=== PATIENT | female | born 1960 | race Caucasian/White ===

== ENCOUNTER → 2017-06-14 | Outpatient (CLI) | payer OTHER ==
[~2017-06-14] MED LIST: BACITAB PO; BUPR15TAXL PO; COLA100C5 PO; EFFE75CA75 PO; NICO14DI3 TD; OMEP40CA2 PO; PERC5TAB12 PO; ROBA500T PO; VANC1CAP7 PO; VENL75TA2 PO; epi pen; lidocaine TOP; percocet PO
--- NOTE | 2017-06-14 14:02 | REPMRS ---
Patient History The patient states she has not had a clinical breast exam in over a year. Patient is postmenopausal. No known family history of cancer. Digital Mammo Screening Bilat: June 14, 2017 - Exam #: [id number] Bilateral CC and MLO view(s) were taken. Technologist: Caren Ramires Technologist Prior study comparison: November 18, 2013, digital woman screen mammo, performed at [facility]. April 15, 2008, bilateral digital mammo screening bilat, performed at [facility]. FINDINGS: There are scattered fibroglandular densities. There has been no change in the appearance of the mammogram from the prior studies. There is a mild amount of scattered fibroglandular density which is fairly symmetric. There is no interval development of dominant mass, architectural distortion, or clustered microcalcification suggestive of malignancy. ASSESSMENT: BI-RADS/ACR category 1 mammogram. Negative. Recommendation Routine screening mammogram in 1 year (for women over age 40). This mammogram was interpreted with the aid of an FDA-approved computer-aided dectection system. Electronically Signed By: Tommie Schofield MD 06/14/17 [id number]
== END ==
LOC: M RAD 11:16
PROVIDERS: ATTEND Nurse Practitioner Adult Health
DX: Z12.31 Encounter for screening mammogram for malignant neoplasm of breast (principal)

== ENCOUNTER → 2017-07-02 | Outpatient (REF) | payer OTHER ==
[2017-07-02 13:17] LABS: BASO # 0.1 10^3/uL (0.0-0.2); BASO % 0.8 % (0.0-1.0); EOS # 0.2 10^3/uL (0.0-0.50); EOS % 2.7 % (0.0-3.0); IMMATURE GRANULOCYTE % 0.2 % (0-0); LYMPH # 4.3 10^3/uL (1.5-4.5); LYMPH % 51.9 % (24.0-44.0); MEAN CORPUSCULAR HEMOGLOBIN 32.1 pg (27.0-33.0); MEAN CORPUSCULAR HGB CONC 33.3 g/dl (32.0-36.5); MEAN CORPUSCULAR VOLUME 96.2 fl (80.0-96.0); MONO # 0.6 10^3/uL (0.0-0.8); MONO % 7.1 % (0.0-5.0); NEUTROPHILS # 3.1 10^3/uL (1.8-7.7); NEUTROPHILS % 37.3 % (36.0-66.0); PLATELET COUNT, AUTOMATED 408 10^3/uL (150-450); RED CELL DISTRIBUTION WIDTH 13.1 % (11.5-14.5); WHITE BLOOD COUNT 8.3 10^3/uL (4.0-10.0)
[2017-07-02 14:12] LABS: ALBUMIN 3.7 GM/DL (3.2-5.2); ALBUMIN/GLOBULIN RATIO 1.16 (1.00-1.93); ALKALINE PHOSPHATASE 81 U/L (45-117); ALT/SGPT 21 U/L (12-78); ANION GAP 9 MEQ/L (8-16); AST/SGOT 15 U/L (7-37); BILIRUBIN,TOTAL 0.3 MG/DL (0.2-1.0); BLOOD UREA NITROGEN 13 MG/DL (7-18); CALCIUM LEVEL 8.9 MG/DL (8.5-10.1); CARBON DIOXIDE LEVEL 26 MEQ/L (21-32); CHLORIDE LEVEL 108 MEQ/L (98-107); CHOLESTEROL LEVEL 216 MG/DL (<200); CREATININE FOR GFR 0.82 MG/DL (0.55-1.02); GLOMERULAR FILTRATION RATE > 60.0 (>51); GLUCOSE, FASTING 93 MG/DL (70-105); SODIUM LEVEL 143 MEQ/L (136-145); TOTAL PROTEIN 6.9 GM/DL (6.4-8.2); TRIGLYCERIDES LEVEL 63 MG/DL (<150)
== END ==
LOC: M LAB REF 12:55
PROVIDERS: ATTEND Nurse Practitioner Adult Health
DX: Z13.9 Encounter for screening, unspecified (principal)

== ENCOUNTER → 2018-04-10 | Outpatient (REF) | payer OTHER ==
[2018-04-10 15:28] LABS: ALBUMIN 4.1 GM/DL (3.2-5.2); ALBUMIN/GLOBULIN RATIO 1.41 (1.00-1.93); ALKALINE PHOSPHATASE 79 U/L (45-117); ALT/SGPT 29 U/L (12-78); ANION GAP 11 MEQ/L (8-16); AST/SGOT 21 U/L (7-37); BILIRUBIN,TOTAL 0.2 MG/DL (0.2-1.0); BLOOD UREA NITROGEN 11 MG/DL (7-18); CALCIUM LEVEL 8.7 MG/DL (8.5-10.1); CARBON DIOXIDE LEVEL 23 MEQ/L (21-32); CHLORIDE LEVEL 111 MEQ/L (98-107); CREATININE FOR GFR 0.84 MG/DL (0.55-1.30); GLOMERULAR FILTRATION RATE > 60.0 (>51); GLUCOSE, FASTING 89 MG/DL (70-100); SODIUM LEVEL 145 MEQ/L (136-145)
[2018-04-10 15:34] LABS: ESTIMATED AVERAGE GLUCOSE 114 MG/DL (60-110); HEMOGLOBIN A1c 5.6 %
[2018-04-10 15:37] LABS: TOTAL 25(OH) VITAMIN D 39.8 NG/ML (30.0-100.0)
== END ==
LOC: M LAB REF 13:37
DX: Z13.9 Encounter for screening, unspecified (principal)

== ENCOUNTER 2019-05-02 16:30 | Emergency (ER) | payer OTHER ==
[~2019-05-02] VITALS: Ht 160 cm; Wt 57.3 kg
[~2019-05-02 16:30] MED LIST changes: -BUPR15TAXL PO; +BUPR1TAB43 PO; +EFFE75CA2 PO; -EFFE75CA75 PO; -OMEP40CA2 PO; +OMEP40CA97 PO
[2019-05-02] MEDS ORDERED: PRAZ1CAP PO (16:39)
[2019-05-02] MEDS ORDERED: BUSP15TA47 PO (16:39)
[2019-05-02] MEDS ORDERED: ISOVUE-370 76% 100ML VIAL (Q9967) As Ordered ONE (16:42)
[2019-05-02 16:58] LABS: BASO # 0.1 10^3/uL (0.0-0.2); BASO % 0.7 % (0.0-1.0); EOS # 0.1 10^3/uL (0.0-0.5); EOS % 1.2 % (0.0-3.0); HEMATOCRIT 37.6 % (36.0-47.0); HEMOGLOBIN 12.7 g/dl (12.0-15.5); LYMPH # 4.3 10^3/uL (1.5-5.0); LYMPH % 39.9 % (24.0-44.0); MEAN CORPUSCULAR HEMOGLOBIN 33.2 pg (27.0-33.0); MEAN CORPUSCULAR HGB CONC 33.8 g/dl (32.0-36.5); MEAN CORPUSCULAR VOLUME 98.4 fl (80.0-96.0); MONO # 0.6 10^3/uL (0.0-0.8); MONO % 5.5 % (0.0-5.0); NEUTROPHILS # 5.6 10^3/uL (1.5-8.5); NEUTROPHILS % 52.4 % (36.0-66.0); PLATELET COUNT, AUTOMATED 335 10^3/uL (150-450); RED BLOOD COUNT 3.82 10^6/uL (4.00-5.40); WHITE BLOOD COUNT 10.7 10^3/uL (4.0-10.0)
[2019-05-02 17:25] VITALS: BP 145/72
[2019-05-02 17:30] LABS: BLOOD UREA NITROGEN 15 MG/DL (7-18); CALCIUM LEVEL 9.2 MG/DL (8.5-10.1); CARBON DIOXIDE LEVEL 29 MEQ/L (21-32); CHLORIDE LEVEL 107 MEQ/L (98-107); CK-MB VALUE MASS 1.7 NG/ML (<3.6); CPK CREATINE PHOSPHOKINASE 197 U/L (26-192); CREATININE FOR GFR 0.98 MG/DL (0.55-1.30); GLOMERULAR FILTRATION RATE > 60.0 (>51); GLUCOSE, FASTING 114 MG/DL (70-100); MB/CK RELATIVE INDEX 0.86 (< OR =4); POTASSIUM SERUM 3.9 MEQ/L (3.5-5.1); SODIUM LEVEL 143 MEQ/L (136-145); TROPONIN I < 0.02 NG/ML (< 0.10)
[2019-05-02 17:37] LABS: INR 1.01
[2019-05-02 17:38] LABS: PARTIAL THROMBOPLASTIN TIME 28.8 SECONDS (25.0-38.4)
--- NOTE | 2019-05-02 19:35 | ECGEPIP ---
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
[2019-05-03] MEDS ORDERED: METAL LOCK LOOP XX ONE ×2 (01:53→01:56)
--- NOTE | 2019-05-03 08:05 | REP ---
CT BRAIN WITHOUT CONTRAST: 05/02/2019. Clinical history: Stroke protocol. Findings: No prior study. Soft-tissue and bone windows are reviewed for each slice level. Lateral ventricles are midline symmetric and without dilatation or displacement. Third and fourth ventricles unremarkable vasoganglia symmetric. Winston-white junction differentiation well maintained. Hyperdense material in an M3 branch in the left sylvian fissure. However, there is also a punctate hyperintense focus within the cortex in the right temporal lobe, highly suspicious for a cortical bleed or contusion. I do not see extra-axial hemorrhage in the some arachnoid or subdural space. The falx and tentorium were unremarkable. Cortical stripe shows symmetric appearance otherwise. Brainstem is intact. Cerebellum intact. Basal cisterns are unremarkable. Mastoids and visualized sinuses clear. Skull base and calvarium normal. Impression: 1. About 5.5 mm cortical focus of hyperdensity in the anterior left temporal lobe at the Sylvian fissure, one of the M3 segment branches and it shows hyperdense material likely thrombus but I am highly suspicious for parenchymal bleed adjacent within the temporal lobe. A phone call to the ED physician occurred during this dictation. 2. No subarachnoid subdural or epidural hematoma. 3. No mass or mass effect. No ventriculomegaly. 4. Skull base and calvarium without fracture or focal lesion. Sinuses and mastoids intact. Electronically Signed by Cruz Ralph MD 05/03/2019 10:38 A
--- NOTE | 2019-05-03 08:10 | REP ---
CT ANGIOGRAM NECK: 05/02/2019. Clinical history: Suspected CVA. Technique: Bolus 100 ml Isovue 370, scanning from the aortic arch to the skull base. MIP and standard coronal, sagittal reformats and curved reformats of each internal carotid. 3-D surface rendering rotated about the longitudinal axis of the neck was also evaluated. Findings: Lung apices clear. Bone windows in the upper chest were unremarkable. There is cervical spondylosis C4-5 through C6-7. Posterior osteophytes and disc space narrowing at all those levels. Posterior elements intact. Atherosclerotic calcifications at the aortic arch are noted. Takeoff of the innominate artery and left common carotid artery partly obscured by shadowing from very dense IV contrast in the right subclavian vein which limits the reconstructions. However the vessels are in fact patent. The right common carotid artery is without stenosis or aneurysm. The bifurcation is also unremarkable and the right internal carotid to the skull base was without stenosis or aneurysm. Internal carotid from the bulb to the skull base intact. Horizontal course at the skull base, partially obscured but visible on the CTA brain. The left common carotid through the neck also is without stenosis or aneurysm from the bulb to the skull base. The left common carotid also shows no stenosis or aneurysm. Its horizontal course intact. Vertebral arteries show symmetric size and contribution of the basilar artery. Impression: 1. There is no aneurysm, thrombus or vessel cutoff of the internal carotids or vertebral arteries. Electronically Signed by Cruz Ralph MD 05/03/2019 10:38 A
--- NOTE | 2019-05-03 08:11 | REP ---
AP PORTABLE CHEST: 05/02/2019. Comparison: 10/11/2007. Clinical history: CVA. Findings: Lungs are well inflated without infiltrate, effusion, atelectasis or mass. Heart, mediastinal and hilar contours are normal. Aorta and airway are intact. There is no widening of the mediastinum. No vascular redistribution. Bones show minor degenerative changes spine and shoulders. Impression: 1. No acute cardiopulmonary change. Electronically Signed by Cruz Ralph MD 05/03/2019 10:38 A
--- NOTE | 2019-05-03 08:15 | REP ---
CT ANGIOGRAM OF THE BRAIN: 05/02/2019. Comparison: CT brain without contrast 05/02/2019. Technique: Bolus of 100 ml Isovue 370 and scanning through the brain with MIP sagittal and coronal reconstructions along with an axial MIP reformat and standard reformats in sagittal and coronal projections. Findings: The left sylvian fissure. There is vessel cutoff of the M2 and M3 segments compared to the right side. This corresponds to the high hyperdense material noted in the sylvian fissure on the precontrast CT and the hyperdense material in the anterior tip of the left temporal lobe. This represents acute thrombotic episode. I do not see other vessel cutoff. The vertebral arteries show symmetric contribution of the basilar arteries. Posterior cerebral arteries were symmetric. The right middle cerebral artery and branches were intact. The bilateral anterior cerebral arteries and branches are intact. The A1 and M1 segments were unremarkable. No other findings. Impression: 1. Vessel cutoff with poor vascularity to the left temporal lobe from M2 and M3 branches in the left middle cerebral artery territory. This corresponds to findings o the precontrast study. I do not see any extravasation of contrast. The remainder of the intracranial arterial vascularity was normal. Electronically Signed by Cruz Ralph MD 05/03/2019 10:38 A
== END 2019-05-02 17:41 | disposition short-term general hospital (02) ==
LOC: M ED 16:30
DX: I61.9 Nontraumatic intracerebral hemorrhage, unspecified (principal); K21.9 Gastro-esophageal reflux disease without esophagitis; F33.9 Major depressive disorder, recurrent, unspecified; Z79.899 Other long term (current) drug therapy; Z88.0 Allergy status to penicillin; F17.210 Nicotine dependence, cigarettes, uncomplicated
CPT/HCPCS: 36415; 70450; 70496; 70498; 71045; 80047; 80048; 82550; 82553; 85025; 85610; 85730; 86850; 86900; 86901; 93005; 93041; 94760; 99285; Q9967

== ENCOUNTER 2019-06-12 09:46 | Outpatient (RCR) | payer OTHER ==
[~2019-06-12 09:46] MED LIST changes: +BUSP15TA47 PO; +PRAZ1CAP PO
== END 2019-07-04 ==
LOC: M ST 09:46
PROVIDERS: ATTEND Nurse Practitioner Adult Health
DX: Z51.89 Encounter for other specified aftercare (principal); I63.89 Other cerebral infarction

== ENCOUNTER → 2019-06-20 | Outpatient (CLI) | payer OTHER ==
--- NOTE | 2019-06-22 10:51 | REP ---
Intracranial MRA: 06/20/2019. Indication: Aneurysm. Comparison: 05/02/2019. Technique: 3-D [id number] imaging of the intracranial vessels were performed without IV Gadolinium. Findings: There are multiple intracranial aneurysms. There is a bilobed 7 mm left MCA bifurcation aneurysm with a sylvian branch originating from the side of the aneurysm. There is also a 4 - 5 mm left PCoA region aneurysm which projects posteriorly. There is a 5 - 6 mm right supraclinoid/PCoA ICA aneurysm which projects laterally. There is a 3 mm left paraclinoid/hypophyseal aneurysm which projects inferiorly. There are no areas of intracranial high-grade stenosis, vessel occlusion or AVM. Impression: 7 mm left MCA bifurcation aneurysm. 4 - 5 mm left PCoA n aneurysm. 5 - 6 mm right supraclinoid/PCoA aneurysm. 3 mm left paraclinoid/hypophyseal aneurysm. Electronically Signed by Rico Kwong DO 06/22/2019 10:43 A
== END ==
LOC: M RAD 11:56
PROVIDERS: ATTEND Neurological Surgery
DX: I67.1 Cerebral aneurysm, nonruptured (principal)

== ENCOUNTER → 2019-10-28 | Outpatient (CLI) | payer OTHER ==
[2019-10-28 08:10] LABS: CALCIUM LEVEL 8.6 MG/DL (8.5-10.1); CREATININE FOR GFR 1.05 MG/DL (0.55-1.30); GLOMERULAR FILTRATION RATE 57.1 (>51); POTASSIUM SERUM 3.6 MEQ/L (3.5-5.1)
--- NOTE | 2019-10-29 17:53 | ECGEPIP ---
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
== END ==
LOC: M LAB 07:23
PROVIDERS: ATTEND Neurological Surgery
DX: I72.9 Aneurysm of unspecified site (principal)

== ENCOUNTER → 2020-01-18 | Outpatient (CLI) | payer OTHER ==
--- NOTE | 2020-01-19 06:42 | ECGEPIP ---
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
== END ==
LOC: M EKG 11:59
PROVIDERS: ATTEND Neurological Surgery
DX: I72.9 Aneurysm of unspecified site (principal)

== ENCOUNTER → 2020-01-18 | Outpatient (CLI) | payer OTHER ==
[2020-01-18 13:15] LABS: APPEARANCE, URINE HAZY (CLEAR); BACTERIA, URINE AUTO NEGATIVE (NEGATIVE); BILIRUBIN, URINE AUTO NEGATIVE (NEGATIVE); BLOOD, URINE BLOOD NEGATIVE (NEGATIVE); COLOR, URINE YELLOW (YELLOW); GLUCOSE, URINE (UA) AUTO NEGATIVE (NEGATIVE); KETONE, URINE AUTO TRACE mg/dL (NEGATIVE); LEUKOCYTE ESTERASE, URINE AUTO 1+ (NEGATIVE); NITRITE, URINE AUTO NEGATIVE (NEGATIVE); PROTEIN, URINE AUTO NEGATIVE (NEGATIVE); RBC, URINE AUTO 4 /HPF (0-3); SPECIFIC GRAVITY URINE AUTO 1.019 (1.002-1.035); SQUAMOUS EPITHELIAL CELL UR AU 8 /HPF (0-6); UROBILINOGEN, URINE AUTO 0.2 mg/dL (0.0-2.0); WBC, URINE AUTO 4 /HPF (0-3)
[2020-01-18 13:18] LABS: BASO # 0.1 10^3/uL (0.0-0.2); BASO % 0.7 % (0.0-1.0); EOS # 0.2 10^3/uL (0.0-0.5); EOS % 2.2 % (0.0-3.0); HEMATOCRIT 38.9 % (36.0-47.0); HEMOGLOBIN 12.7 g/dl (12.0-15.5); LYMPH # 4.7 10^3/uL (1.5-5.0); LYMPH % 52.7 % (24.0-44.0); MEAN CORPUSCULAR HEMOGLOBIN 31.8 pg (27.0-33.0); MEAN CORPUSCULAR HGB CONC 32.6 g/dl (32.0-36.5); MEAN CORPUSCULAR VOLUME 97.3 fl (80.0-96.0); MONO # 0.6 10^3/uL (0.0-0.8); MONO % 6.3 % (0.0-5.0); NEUTROPHILS # 3.4 10^3/uL (1.5-8.5); NEUTROPHILS % 37.9 % (36.0-66.0); PLATELET COUNT, AUTOMATED 401 10^3/uL (150-450); WHITE BLOOD COUNT 8.9 10^3/uL (4.0-10.0)
[2020-01-18 13:28] LABS: INR 0.99; PARTIAL THROMBOPLASTIN TIME 34.3 SECONDS (25.0-38.4); PROTHROMBIN TIME 12.8 SECONDS (11.8-14.0)
[2020-01-18 14:06] LABS: BLOOD UREA NITROGEN 8 MG/DL (7-18); CALCIUM LEVEL 8.9 MG/DL (8.5-10.1); CARBON DIOXIDE LEVEL 27 MEQ/L (21-32); CHLORIDE LEVEL 111 MEQ/L (98-107); CREATININE FOR GFR 0.73 MG/DL (0.55-1.30); GLOMERULAR FILTRATION RATE > 60.0 (>51); GLUCOSE, FASTING 75 MG/DL (70-100); POTASSIUM SERUM 4.6 MEQ/L (3.5-5.1); SODIUM LEVEL 142 MEQ/L (136-145)
== END ==
LOC: M LAB 11:54
PROVIDERS: ATTEND Physician Assistant Medical
DX: I67.1 Cerebral aneurysm, nonruptured (principal)

== ENCOUNTER 2020-03-18 16:42 | Emergency (ER) | payer OTHER | END 2020-03-18 19:37 | disposition home or self-care (01) | LOC: M ED 16:42 | DX: S30.1XXA Contusion of abdominal wall, initial encounter (principal); X58.XXXA Exposure to other specified factors, initial encounter; Y92.89 Other specified places as the place of occurrence of the external cause; Z98.890 Other specified postprocedural states; Z86.79 Personal history of other diseases of the circulatory system; I51.9 Heart disease, unspecified; K21.9 Gastro-esophageal reflux disease without esophagitis; Z86.73 Personal history of transient ischemic attack (TIA), and cerebral infarction without residual deficits; Z88.5 Allergy status to narcotic agent; Z91.030 Bee allergy status; Z79.899 Other long term (current) drug therapy; Z79.82 Long term (current) use of aspirin ==

== ENCOUNTER 2020-09-23 17:15 | Emergency (ER) | payer OTHER ==
[~2020-09-23] VITALS: Ht 154.9 cm; Wt 61.4 kg
--- OUTSIDE RECORDS SUMMARY | 2020-09-23 17:21 | CCD ---
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 Role Phone Brittany Dorsey PCP Allergies, Adverse Reactions, Alerts Concept Allergy Name Reaction Severity Onset Date Status Documentation Date Phone Number Npid Taxonomy Code Taxonomy Desc Author Last Name Author Fi rst Name Concept Type 476 Penicillins Group anaphylaxis Active 09/09/2014 3157 [id number] [facility] Problem List Concept Problem Description Status Start Date Created Date Resolv ed Date Snomed Code F33.0 Major Depressive Disorder, Recurrent episode, Mild Act fatimah 08/29/2015 08/29/2015 F40.10 Social Anxiety Disorder (Social Phobia) Active 08/29/2015 08/29/2015 R69. Illness, unspecified Active 08/29/2015 08/29/2015 Medications Rx Norm Medication Route Route Concept Start Date Stop Date Dosage Tavares quency Duration Formula Strength Dosage Form Dosage Form Code Dosage Description Medication Id Account Npid Author First Name Author Last Name Taxonomy Code Taxonomy Desc Phone Number [id number] prazosin by mouth [id number] 01/07/2019 at bedtime 1 mg capsul e 54305 591945 [id number] Brittanyyuval Dorsey [id number] [facility] [id number] 522574 buspirone 01/07/2019 twice a day 15 mg tablet 80055 766886 [id number] Brittany Dorsey [id number] [facility] [phone] Effexor XR by mouth [id number] 05/27/2019 once a day 75 mg capsule,extended release 24hr 21068 832637 [id number] Brittany Dorsey [id number] [facility] [phone] 993810 bupropion HCl 05/27/2019 every morning 150 mg tablet extended release 24 hr 51239 355524 [id number] Brittany Dorsey [id number] [facility] [phone] 818352 nicotine (polacrilex) in mouth 05/19/2020 08/17/2020 fou r times a day 30 2 mg gum 58939 882412 [id number] Brittany Dorsey [id number] [facility] [id number] Social History Social History Element Description Concept Effective Date Smoking Status Unknown if ever smoked [id number] Immunizations No Data in Section Vital Signs No Data in Section Procedures Date Concept Id Description Targeted Site Concept Targeted Site Concept Type 07/27/2020 73916 E/M Level 3 - Established Patient CPT Patient has no history of implantable de vices Encounters Encounter Start Date End Date Encounter Type Description Diagnosis Di agnosis Desc Location Author First Name Author Last Name Npid Taxonomy Cod e Taxonomy Desc Phone Number Location Addr1 Location Addr2 Location [facility] Location [facility] Location [facility] [id number] 07/27/2020 07/27/2020 32178 E/M Level 3 - Established [place] conchant F33.0 Major depressive disorder, recurrent, mild [facility] [id number] Psychiatric/Mental Health [phone] [address] [address] Plan of Treatment No Data in Section Lab Results No Data in Section Instructions No Data in Section Insurance Providers Insurance Id Policy Effective Date Policy Thru Date Company N ash [id number] 2016 [id number]
--- OUTSIDE RECORDS SUMMARY | 2020-09-23 17:21 | CCD ---
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 Role Phone Brittany Dorsey PCP Allergies, Adverse Reactions, Alerts Concept Allergy Name Reaction Severity Onset Date Status Documentation Date Phone Number Npid Taxonomy Code Taxonomy Desc Author Last Name Author Fi rst Name Concept Type 476 Penicillins Group anaphylaxis Active 09/09/2014 3157 [id number] [id number] [facility] Problem List Concept Problem Description Status Start [...] Name Taxonomy Code Taxonomy Desc Phone Number [id number] prazosin by mouth [id number] 01/07/2019 at bedtime 1 mg capsul e 16910 475267 [id number] Brittany Sunita [id number] [facility] [phone] 347209 buspirone 01/07/2019 twice a day 15 mg tablet 70119 743125 [id number] Brittany Dorsey [id number] [facility] [phone] 202989 Effexor XR by mouth M76092 05/27/2019 once a day 75 mg capsule,extended release 24hr 32461 326111 [id number] Brittany Dorsey [id number] [facility] [phone] 586562 bupropion HCl 05/27/2019 every morning 150 mg tablet extended release 24 hr 93386 576467 [id number] Brittany Dorsey [id number] [facility]ental [facility] [phone] Social History Social History Element Description Concept Effective Date Smoking Status Unknown if ever smoked [id number] Immunizations No Data in Section Vital Signs Encounter Date Height Ins Weight Lbs Bmi Bp Systolic Bp Diastoli c Oxygen Saturation Respiration Rate Pulse Rate Body Temp Head Circumference Heigh t Lying 08/24/2020 0.00 0.00 0.00 0 0 0.00 0 0 0.00 0.0 0.0 0 Procedures Date Concept Id Description Targeted Site Concept Targeted Site Concept Type 08/24/2020 25518-44 [facility] Tele[facility] E/M Lvl 3--Est pt CPT Patient has no history of implantable de vices Encounters Encounter Start Date End Date Encounter Type Description Diagnosis Di agnosis Desc Location Author First Name Author Last Name Npid Taxonomy Cod e Taxonomy Desc Phone Number Location Addr1 Location Addr2 Location [facility] [id number] 08/24/2020 08/24/2020 26711-02 [facility] Telemed E/M Lvl 3--Est p t F33.0 Major depressive disorder, recurrent, mild [facility] [phone] [id number] Psychiatric/Mental Health [phone] [address] [address] Plan of Treatment No Data in Section Lab Results No Data in Section Instructions No Data in Section Functional Cognitive Status No Data in Section Insurance Providers Insurance Id Policy Effective Date Policy Thru Date Kidaro Earnest aleman [id number] 2016 [id number]
--- OUTSIDE RECORDS SUMMARY | 2020-09-23 17:22 | CCD ---
Author Author [facility] Organization [facility] Address Unknown Phone Unavailable Care Team Providers Care Vice President Of Advertising Name Role Phone Marianna HERNANDEZ Unavailable Unavailable Ynes HIDALGO MD Unavailable Unavailable Ynes HIDALGO MD Unavailable Unavailable Ynes HIDALGO MD Unavailable Unavailable Ynes HIDALGO MD Unavailable Unavailable Ynes HIDALGO MD Unavailable Unavailable Ynes HIDALGO MD Unavailable Unavailable Ynes HIDALGO MD Unavailable Unavailable Ynes HIDALGO MD Unavailable Unavailable Ynes HIDALGO MD Unavailable Unavailable Ynes GARCIA MD Unavailable Unavailable Ynes GARCIA MD Unavailable Unavailable Ynes GARCIA MD Unavailable Unavailable Ynes GARCIA MD Unavailable Unavailable Ynes GARCIA MD Unavailable Unavailable Ynes GARCIA MD Unavailable Unavailable Ynes GARCIA MD Unavailable Unavailable Ynes GARCIA MD Unavailable Unavailable Ynes GARCIA MD Unavailable Unavailable Ynes GARCIA MD Unavailable Unavailable Ynes GARCIA MD Unavailable Unavailable Ynes GARCIA MD Unavailable Unavailable Ynes GARCIA MD Unavailable Unavailable Ynes GARCIA MD Unavailable Unavailable Ynes GARCIA MD Unavailable Unavailable Ynes GARCIA MD Unavailable Unavailable Ynes GARCIA MD Unavailable Unavailable Ynse GARCIA MD Unavailable Unavailable Ynes GARCIA MD Unavailable Unavailable Ynes GARCIA MD Unavailable Unavailable Ynes GARCIA MD Unavailable Unavailable Ynes GARCIA MD Unavailable Unavailable Ynes GARCIA MD Unavailable Unavailable Ynes GARCIA MD Unavailable Unavailable Ynes GARCIA MD Unavailable Unavailable Ynes GARCIA MD Unavailable Unavailable Ynes GARCIA MD Unavailable Unavailable JOSE, S JOSE KEMP Unavailable Unavailable JOSE, S JOSE KEMP Unavailable Unavailable JOSE, S JOSE KEMP Unavailable Unavailable JOSE, S JOSE KEMP Unavailable Unavailable JOSE, S JOSE KMEP Unavailable Unavailable OJSE, S JOSE KEMP Unavailable Unavailable JOSE, S JOSE KEMP Unavailable Unavailable JOSE, S JOSE KEMP Unavailable Unavailable JOSE, S JOSE KEMP Unavailable Unavailable JOSE, S JOSE KEMP Unavailable Unavailable JOSE, S JOSE KEMP Unavailable Unavailable CHIN, S JOSE KEMP Unavailable Unavailable CHIN, S JOSE KEMP Unavailable Unavailable CHIN, S JOSE KEMP Unavailable Unavailable CHIN, S JOSE KEMP Unavailable Unavailable CHIN, S JOSE KEMP Unavailable Unavailable CHIN, S JOSE KEMP Unavailable Unavailable CHIN, S JOSE KEMP Unavailable Unavailable CHIN, S JOSE KEMP Unavailable Unavailable CHIN, S JOSE KEMP Unavailable Unavailable CHIN, S JOSE KEMP Unavailable Unavailable JOSE, S JOSE KEMP Unavailable Unavailable JOSE, S JOSE KEMP Unavailable Unavailable JOSE, S JOSE KEMP Unavailable Unavailable JOSE, S JOSE KEMP Unavailable Unavailable JOSE, S JOSE KEMP Unavailable Unavailable JOSE, S JOSE KEMP Unavailable Unavailable JOSE, S JOSE KEMP Unavailable Unavailable JOSE, S JOSE KEMP Unavailable Unavailable JOSE, S JOSE KEMP Unavailable Unavailable JOSE, S JOSE KEMP Unavailable Unavailable JOSE, S JOSE KEMP Unavailable Unavailable JOSE, S JOSE KEMP Unavailable Unavailable JOSE, S JOSE KEMP Unavailable Unavailable JOSE, S JOSE KEMP Unavailable Unavailable JOSE, S JOSE KEMP Unavailable Unavailable JOSE, S JOSE KEMP Unavailable Unavailable JOSE, S JOSE KEMP Unavailable Unavailable JOSE, S JOSE KEMP Unavailable Unavailable JOSE S JOSE KEMP Unavailable Unavailable JOSE S JOSE KEMP Unavailable Unavailable JOSE S JOSE KEMP Unavailable Unavailable JOSE S JOSE KEMP Unavailable Unavailable JOSE, S JOSE KEMP Unavailable Unavailable JOSE, S JOSE KEMP Unavailable Unavailable JOSE S JOSE KEMP Unavailable Unavailable JOSE, S JOSE KEMP Unavailable Unavailable JOSE S JOSE KEMP Unavailable Unavailable JOSE S JOSE KEMP Unavailable Unavailable JOSE S JOSE KEMP Unavailable Unavailable JOSE S JOSE KEMP Unavailable Unavailable JOSE S JOSE KEMP Unavailable Unavailable JOSE S JOSE KEMP Unavailable Unavailable JOSE S JOSE KEMP Unavailable Unavailable JOSE S JOSE KEMP Unavailable Unavailable JOSE S JOSE KEMP Unavailable Unavailable Zohra Henry Unavailable [facility], KGATES Unavailable Unavailable Albino MURRAY Unavailable Unavailable Ray RODRIGUEZ Unavailable Unavailable Ray RODRIGUEZ PA Unavailable Unavailable Ray RODRIGUEZ Unavailable Unavailable Stoney ROWE . Unavailable Unavailable ALIASES , DEFAULT / GENERIC / UNKNOWN PROVIDER * Unavailable Unavailable ALIASES , DEFAULT / GENERIC / UNKNOWN PROVIDER * Unavailable Unavailable ALIASES , DEFAULT / GENERIC / UNKNOWN PROVIDER * Unavailable Unavailable ALIASES , DEFAULT / GENERIC / UNKNOWN PROVIDER * Unavailable Unavailable ALIASES , DEFAULT / GENERIC / UNKNOWN PROVIDER * Unavailable Unavailable ALIASES , DEFAULT / GENERIC / UNKNOWN PROVIDER * Unavailable Unavailable ALIASES , DEFAULT / GENERIC / UNKNOWN PROVIDER * Unavailable Unavailable ALIASES , DEFAULT / GENERIC / UNKNOWN PROVIDER * Unavailable Unavailable ALIASES , DEFAULT / GENERIC / UNKNOWN PROVIDER * Unavailable Unavailable ALIASES , DEFAULT / GENERIC / UNKNOWN PROVIDER * Unavailable Unavailable ALIASES , DEFAULT / GENERIC / UNKNOWN PROVIDER * Unavailable Unavailable ALIASES , DEFAULT / GENERIC / UNKNOWN PROVIDER * Unavailable Unavailable ALIASES , DEFAULT / GENERIC / UNKNOWN PROVIDER * Unavailable Unavailable ALIASES , DEFAULT / GENERIC / UNKNOWN PROVIDER * Unavailable Unavailable ALIASES , DEFAULT / GENERIC / UNKNOWN PROVIDER * Unavailable Unavailable ALIASES , DEFAULT / GENERIC / UNKNOWN PROVIDER * Unavailable Unavailable ALIASES , DEFAULT / GENERIC / UNKNOWN PROVIDER * Unavailable Unavailable ALIASES , DEFAULT / GENERIC / UNKNOWN PROVIDER * Unavailable Unavailable ALIASES , DEFAULT / GENERIC / UNKNOWN PROVIDER * Unavailable Unavailable ALIASES , DEFAULT / GENERIC / UNKNOWN PROVIDER * Unavailable Unavailable ALIASES , DEFAULT / GENERIC / UNKNOWN PROVIDER * Unavailable Unavailable ALIASES , DEFAULT / GENERIC / UNKNOWN PROVIDER * Unavailable Unavailable ALIASES , DEFAULT / GENERIC / UNKNOWN PROVIDER * Unavailable Unavailable ALIASES , DEFAULT / GENERIC / UNKNOWN PROVIDER * Unavailable Unavailable ALIASES , DEFAULT / GENERIC / UNKNOWN PROVIDER * Unavailable Unavailable ALIASES , DEFAULT / GENERIC / UNKNOWN PROVIDER * Unavailable Unavailable ALIASES , DEFAULT / GENERIC / UNKNOWN PROVIDER * Unavailable Unavailable ALIASES , DEFAULT / GENERIC / UNKNOWN PROVIDER * Unavailable Unavailable ALIASES , DEFAULT / GENERIC / UNKNOWN PROVIDER * Unavailable Unavailable ALIASES , DEFAULT / GENERIC / UNKNOWN PROVIDER * Unavailable Unavailable ALIASES , DEFAULT / GENERIC / UNKNOWN PROVIDER * Unavailable Unavailable ALIASES , DEFAULT / GENERIC / UNKNOWN PROVIDER * Unavailable Unavailable ALIASES , DEFAULT / GENERIC / UNKNOWN PROVIDER * Unavailable Unavailable ALIASES , DEFAULT / GENERIC / UNKNOWN PROVIDER * Unavailable Unavailable ALIASES , DEFAULT / GENERIC / UNKNOWN PROVIDER * Unavailable Unavailable ALIASES , DEFAULT / GENERIC / UNKNOWN PROVIDER * Unavailable Unavailable ALIASES , DEFAULT / GENERIC / UNKNOWN PROVIDER * Unavailable Unavailable ALIASES , DEFAULT / GENERIC / UNKNOWN PROVIDER * Unavailable Unavailable ALIASES , DEFAULT / GENERIC / UNKNOWN PROVIDER * Unavailable Unavailable ALIASES , DEFAULT / GENERIC / UNKNOWN PROVIDER * Unavailable Unavailable ALIASES , DEFAULT / GENERIC / UNKNOWN PROVIDER * Unavailable Unavailable ALIASES , DEFAULT / GENERIC / UNKNOWN PROVIDER * Unavailable Unavailable ALIASES , DEFAULT / GENERIC / UNKNOWN PROVIDER * Unavailable Unavailable ALIASES , DEFAULT / GENERIC / UNKNOWN PROVIDER * Unavailable Unavailable ALIASES , DEFAULT / GENERIC / UNKNOWN PROVIDER * Unavailable Unavailable ALIASES , DEFAULT / GENERIC / UNKNOWN PROVIDER * Unavailable Unavailable ALIASES , DEFAULT / GENERIC / UNKNOWN PROVIDER * Unavailable Unavailable ALIASES , DEFAULT / GENERIC / UNKNOWN PROVIDER * Unavailable Unavailable ALIASES , DEFAULT / GENERIC / UNKNOWN PROVIDER * Unavailable Unavailable ALIASES , DEFAULT / GENERIC / UNKNOWN PROVIDER * Unavailable Unavailable ALIASES , DEFAULT / GENERIC / UNKNOWN PROVIDER * Unavailable Unavailable ALIASES , DEFAULT / GENERIC / UNKNOWN PROVIDER * Unavailable Unavailable ALIASES , DEFAULT / GENERIC / UNKNOWN PROVIDER * Unavailable Unavailable Calista Cortes MD Unavailable Unavailable Calista Cortes MD Unavailable Unavailable Calista Cortes MD Unavailable Unavailable Calista Cortes MD Unavailable Unavailable Calista Cortes MD Unavailable Unavailable Calista Cortes MD Unavailable Unavailable Calista Cortes MD Unavailable Unavailable Calista Cortes MD Unavailable Unavailable Calista Cortes MD Unavailable Unavailable Calista Cortes MD Unavailable Unavailable Calista Cortes MD Unavailable Unavailable Ynes CABA Unavailable Unavailable Nelson GIBSON MD Unavailable Unavailable Nelson GIBSON MD Unavailable Unavailable Nelson GIBSON MD Unavailable Unavailable Nelson GIBSON MD Unavailable Unavailable Nelson GIBSON MD Unavailable Unavailable Nelson GIBSON MD Unavailable Unavailable Nelson GIBSON MD Unavailable Unavailable Nelson GIBSON MD Unavailable Unavailable Nelson GIBSON MD Unavailable Unavailable Nelson GIBSON MD Unavailable Unavailable GIBSON, C DIETER KEMP Unavailable Unavailable GIBSON, C DIETER KEMP Unavailable Unavailable GIBSON, C DIETER KEMP Unavailable Unavailable GIBSON, C DIETER KEMP Unavailable Unavailable GIBSON, C DIETER KEMP Unavailable Unavailable GIBSON, C DIETER KEMP Unavailable Unavailable GIBSON, C DIETER KEMP Unavailable Unavailable GIBSON, C DIETER KEMP Unavailable Unavailable GIBSON, C DIETER KEMP Unavailable Unavailable GIBSON C DIETER KEMP Unavailable Unavailable GIBSON C GRAHRODERICK KEMP Unavailable Unavailable GIBSON C DIETER KEMP Unavailable Unavailable GIBSON, C DIETER KEMP Unavailable Unavailable GIBSON C GRAHAME MD Unavailable Unavailable GIBSON, C GRAHAME MD Unavailable Unavailable GIBSON, C GRAHAME MD Unavailable Unavailable GIBSON, C GRAHAME MD Unavailable Unavailable GIBSON, C GRAHAME MD Unavailable Unavailable GIBSON, C GRAHAME MD Unavailable Unavailable GIBSON, C GRAHAME MD Unavailable Unavailable GIBSON, C GRAHAME MD Unavailable Unavailable GIBSON, C GRAHAME MD Unavailable Unavailable GIBSON, C GRAHAME MD Unavailable Unavailable GIBSON, C GRAHAME MD Unavailable Unavailable GIBSON, C GRAHAME MD Unavailable Unavailable GIBSON, C GRAHAME MD Unavailable Unavailable GIBSON, C GRAHAME MD Unavailable Unavailable GIBSON, C GRAHAME MD Unavailable Unavailable GIBSON, C GRAHAME MD Unavailable Unavailable GIBSON, C GRAHAME MD Unavailable Unavailable GIBSON, C GRAHAME MD Unavailable Unavailable GIBSON, C GRAHAME MD Unavailable Unavailable GIBSON, C GRAHAME MD Unavailable Unavailable GIBSON, C GRAHAME MD Unavailable Unavailable GIBSON, C GRAHAME MD Unavailable Unavailable GIBSON, C GRAHAME MD Unavailable Unavailable GIBSON, C GRAHAME MD Unavailable Unavailable GIBSON, C GRAHAME MD Unavailable Unavailable GIBSON, C GRAHAME MD Unavailable Unavailable GIBSON, C GRAHAME MD Unavailable Unavailable GIBSON, C GRAHAME MD Unavailable Unavailable GIBSON, C GRAHAME MD Unavailable Unavailable GIBSON, C GRAHAME MD Unavailable Unavailable GIBSON, C GRAHAME MD Unavailable Unavailable GIBSON, C GRAHAME MD Unavailable Unavailable GIBSON, C GRAHAME MD Unavailable Unavailable GIBSON, C GRAHAME MD Unavailable Unavailable GIBSON, C GRAHAME MD Unavailable Unavailable GIBSON, C GRAHAME MD Unavailable Unavailable MACQUEEN, BRITTANY SANITARY PLUMBER Unavailable Unavailable MACQUEEN, BRITTANY SANITARY PLUMBER Unavailable Unavailable MACQUEEN, BRITTANY SANITARY PLUMBER Unavailable Unavailable MACQUEEN, BRITTANY SANITARY PLUMBER Unavailable Unavailable MACQUEEN, BRITTANY SANITARY PLUMBER Unavailable Unavailable MACQUEEN, BRITTANY SANITARY PLUMBER Unavailable Unavailable MACQUEEN, BRITTANY SANITARY PLUMBER Unavailable Unavailable MACQUEEN, BRITTANY SANITARY PLUMBER Unavailable Unavailable MACQUEEN, BRITTANY SANITARY PLUMBER Unavailable Unavailable MACQUEEN, BRITTANY SANITARY PLUMBER Unavailable Unavailable MACQUEEN, BRITTANY SANITARY PLUMBER Unavailable Unavailable PALMA EMMANUEL Unavailable Unavailable FAIZAN, F ESPERANZA Unavailable Unavailable Re-disclosure Warning The records that you are about to access may contain information from federally-assisted alcohol or drug abuse programs. If such information is present, then the following federally mandated warning applies: This information has been disclosed to you from records protected by federal confidentiality rules (42 CFR part 2). The federal rules prohibit you from making any further disclosure of this information unless further disclosure is expressly permitted by the written consent of the person to whom it pertains or as otherwise permitted by 42 CFR part 2. A general authorization for the release of medical or other information is NOT sufficient for this purpose. The Federal rules restrict any use of the information to criminally investigate or prosecute any alcohol or drug abuse patient.The records that you are about to access may contain highly sensitive health information, the redisclosure of which is protected by Article 27-F of the [facility] Public Health law. If you continue you may have access to information: Regarding HIV / AIDS; Provided by facilities licensed or operated by the [facility] Office of Mental Health; or Provided by the [facility] Office for People With Developmental Disabilities. If such information is present, then the following [facility] mandated warning applies: This information has been disclosed to you from confidential records which are protected by state law. State law prohibits you from making any further disclosure of this information without the specific written consent of the person to whom it pertains, or as otherwise permitted by law. Any unauthorized further disclosure in violation of state law may result in a fine or residential sentence or both. A general authorization for the release of medical or other information is NOT sufficient authorization for further disc losure. Allergies and Adverse Reactions Type Description Substance Reaction Status Data Source(s ) Propensity to adverse reactions to substance Penicillins Fan up Penicillins Group anaphylaxis Active [facility] ([facility]) Encounters Encounter Providers Location Date Indications Data Source(s ) Outpatient Attender: BRITTANY BARFIELD NP [facility] Kodi kemp 08/24/2020 09:30:00 AM EST - 08/24/2020 09:30:00 AM EST [facility] ([facility]) Attender: BRITTANY BARFIELD NP 08/24/2020 12:00:00 AM EST [facility] Attender: BRITTANY BARFIELD NP [facility] Kodi kemp 07/27/2020 09:00:00 AM EST - 07/27/2020 09:00:00 AM EST [facility] ([facility]) Attender: BRITTANY BARFIELD NP 07/27/2020 12:00:00 AM EST [facility] ([facility]) Outpatient Attender: DIETER GIBSON MDReferrer: DIETER Rose MD 07/05/2020 12:00:00 AM [facility] Outpatient Attender: [facility] 05/23/2020 01:10:01 PM ED T [facility] Outpatient Attender: BRITTANY BARFIELD NP [facility] 05/19/2020 02:00:00 AM EDT - 05/19/2020 02:00:00 AM EDT [facility] ([facility]) Attender: BRITTANY BARFIELD NP 05/19/2020 12:00:00 AM EDT [facility] ([facility]) Outpatient Attender: [facility] 05/18/2020 11:56:01 AM ED T [facility] Outpatient Attender: BRITTANY BARFIELD NP [facility] 05/18/2020 03:00:00 AM EDT - 05/18/2020 03:00:00 AM EDT [facility] ([facility]) Attender: BRITTANY BARFIELD NP 05/18/2020 12:00:00 AM EDT [facility] ([facility]) [facility] 04/13/2020 11:19:01 AM ED T [facility] Outpatient Attender: DIETER GIBSON MD [id number] 04/12/2020 12:00:00 AM T [facility] Inpatient Attender: DIETER GIBSON MDAd mitter: DIETER GIBSON MDReferrer: DIETER GIBSON MD [id number] 03/14/2020 07:55:53 AM EDT - 03/16/2020 01:56:00 PM EDT Cerebral aneurysm, nonruptured [facility] Cerebral aneurysm, nonruptured Patient discharged. [facility] 03/10/2020 10:41:01 AM ED T [facility] Outpatient Attender: [facility] 03/10/2020 10:17:01 AM ED T [facility] Outpatient Attender: DEFAULT / GENE WILDER / UNKNOWN PROVIDER ALIASES Attender: MARQUEZ FLOODReferrer: ADRIANA RIOS [id number] 12:00:00 AM EDT - 03/11/2020 12:00:00 AM EDT [facility] Outpatient Attender: ADRIANA RODRIGUEZ PAAt tender: Maris Cortes MDReferrer: DIETER GIBSON MD 03/10/2020 12:00:00 AM EDT pretest [facility] pretest Outpatient Attender: HASMUKH CHADWICK 03/09/2020 03:07:00 PM ED T [facility] 03/09/2020 03:06:00 PM ED T [facility] 03/09/2020 02:10:01 PM ED T [facility] Outpatient Attender: HASMUKH LEVY 03/08/2020 09:43:00 AM ED T [facility] Outpatient Attender: HASMUKH [facility] 03/07/2020 02:06:01 PM ED T [facility] Outpatient Attender: DIETER GIBSON MD 02/23/2020 12:00:00 AM [facility] Outpatient Attender: DIETER GIBSON MD [id number] 02/01 12:00:00 AM EDT - 02/02/2020 10:25:24 AM [facility] Outpatient Attender: HASMUKH LEVY 01/29/2020 11:58:00 AM ED T [facility] Outpatient Attender: HASMUKH CHADWICK 01/28/2020 03:52:01 PM ED [facility] Outpatient Attender: HASMUKH LEVY 01/27/2020 12:02:10 AM ED T [facility] Outpatient Attender: DIETER GIBSON MDAt tender: EDWARD HIDALGO MDAttender: PALMA De La Cruzender: CRISTOBAL CABAAttender: FABIANA MURRAYAdmitter: DIETER GIBSON MDReferrer: DIETER GIBSON MD [id number] 01/26/2020 12:00:00 AM EDT - 01/26/2020 02:20:00 PM EDT Cerebral aneurysm, nonruptured [facility] Cerebral aneurysm, nonruptured Patient discharged. Outpatient Attender: DEFAULT / GENE WILDER / UNKNOWN PROVIDER ALIASES Attender: ESPERANZA PRICEReferrer: DIETER GIBSON MD [id number] 01/04 12:00:00 AM EDT - 01/24/2020 12:00:00 AM [facility] 01/20/2020 11:16:03 AM ED T [facility] Outpatient [facility] 01/20/2020 11:16:01 AM ED [facility] Out[facility] 01/20/2020 11:15:02 AM ED T [facility] Outpatient Att[facility]: [facility] 01/20/2020 11:15:01 AM ED [facility] Outpatient Attender: BRITTANY BARFIELD NP [facility] 12/23/2019 03:30:00 AM EDT - 12/23/2019 03:30:00 AM EDT [facility] ([facility]) Attender: BRITTANY BARFIELD NP 12/23/2019 12:00:00 AM EDT [facility] 12/16/2019 02:29:00 PM ED [facility] Outpatient Attender: [facility] 11/25/2019 12:10:01 PM ED [facility] Brief Individual Psychotherapy - 30 min Attender: Zohra Guerra [facility] 11/25/2019 02:00:00 AM EDT - 11/25/2019 02:00:00 AM EDT [facility]: Zohra Henry 11/25/2019 12:00:00 AM E DT [facility] 11/18/2019 12:00:00 AM [facility] Outpatient Attender: DIETER GIBSON MDReferrer: RONALD MENDOZA 11/05/2019 12:00:00 AM [facility] Outpatient Attender: [facility] 10/14/2019 02:44:02 PM ED [facility] 10/14/2019 12:06:01 PM ED T [facility] Outpatient Attender: HASMUKH LAGUNAS [facility] 10/13/2019 10:57:00 AM ED T [facility] Outpatient Attender: HASMUKH LAGUNAS [facility] 10/12/2019 02:44:03 PM ED T [facility] Outpatient Attender: HASMUKH LEVY FP 10/12/2019 11:17:01 AM ED T [facility] Outpatient Attender: HASMUKH LEVY FP 10/12/2019 10:57:00 AM ED T [facility] Outpatient Attender: HASMUKH LAGUNAS FP 10/12/2019 10:56:00 AM ED T [facility] Outpatient Attender: HASMUKH LAGUNAS FP 10/12/2019 10:51:00 AM ED T [facility] Outpatient Attender: HASMUKH JANNETH [facility] 10/12/2019 10:09:01 AM ED T [facility] Outpatient Attender: HASMUKH LAGUNAS [facility] 10/08/2019 10:30:01 AM ES [facility] Outpatient Attender: JOSE GARCIA MD [id number] 10/06 12:00:00 AM EST - 10/07/2019 03:47:30 PM EST hosp [facility] Outpatient Attender: BRITTANY BARFIELD NP [facility] Kdoi kemp 09/23/2019 03:30:00 AM EST - 09/23/2019 03:30:00 AM EST [facility] ([facility]) Attender: BRITTANY BARFIELD NP 09/23/2019 12:00:00 AM EST [facility] Attender: HASMUKH JANNETH [facility] 09/14/2019 02:03:01 PM ES [facility] Outpatient Attender: HASMUKH JANNETH [facility] 09/14/2019 02:02:01 PM ES [facility] Outpatient Attender: HASMUKH JANNETH FP 09/03/2019 11:21:47 AM ES [facility] Outpatient Attender: BRITTANY BARFIELD NP [facility] Kodi kemp 08/26/2019 11:30:00 AM EST - 08/26/2019 11:30:00 AM EST [facility] ([facility]) Attender: BRITTANY BARFIELD NP 08/26/2019 12:00:00 AM EST [facility] 08/19/2019 12:00:00 AM [facility] Functional Status Medications Medication Brand Name Start Date Product Form Dose Route Admi nistrative Instructions Pharmacy Instructions Status Indications Reaction Description Data Source(s) 24 HR Bupropion Hydrochloride 150 MG Extended Release Oral T ablet BUPROPION HCL 09/11/2020 12:00:00 AM EST tablet extended release 24 hr 30 TAKE ONE TABLET BY MOUTH EVERY DAY IN THE MORNING TAKE ONE TABLET BY MOUTH EVERY DAY IN E MORNING SOLD: 09/12/2020 [facility] buspirone hydrochloride 15 MG Oral Tablet BUSPIRONE HCL 09/08/2020 12:00:00 AM EST tablet 60 TAKE ONE TABLET BY MOUTH TWI CE A DAY TAKE ONE TABLET BY MOUTH TWICE A DAY SOLD: 09/12/2020 [facility] 75 mg 09/08/2020 12:00:00 AM EST capsule,extended releas e 24hr 90 TAKE THREE CAPSULES BY MOUTH EVERY DAY TAKE THREE CAPSULES BY MOUTH EVERY DAY SOLD: 09/12/2020 [facility] atorvastatin 40 MG Oral Tablet ATORVASTATIN CALCIUM 08/20/2020 1 2:00:00 AM EST tablet 30 TAKE ONE TABLET BY MOUTH EVERY E VENING TAKE ONE TABLET BY MOUTH EVERY EVENING SOLD: 08/23/2020 [facility] 24 HR Bupropion Hydrochloride 150 MG Extended Release Oral T ablet BUPROPION HCL 08/16/2020 12:00:00 AM EST tablet extended release 24 hr 30 TAKE ONE TABLET BY MOUTH EVERY MORNING TAKE ONE TABLET BY MOUTH EVERY MORNING SOLD: 08/23/2020 [facility] 2 mg 06/21/2020 12:00:00 AM EST gum 110 CHEW 1 PIECE OF GUM FOUR TIMES A DAY CHEW 1 PIECE OF GUM FOUR TIMES A DAY SOLD: 06/21/2020 [facility] 75 mg 06/07/2020 12:00:00 AM EST capsule,extended releas e 24hr 90 TAKE THREE CAPSULES BY MOUTH EVERY DAY TAKE THREE CAPSULES BY MOUTH EVERY DAY SOLD: 08/13/2020 [facility] buspirone hydrochloride 15 MG Oral Tablet BUSPIRONE HCL 06/07/2020 12:00:00 AM EST tablet 60 TAKE ONE TABLET BY MOUTH TWI CE A DAY TAKE ONE TABLET BY MOUTH TWICE A DAY SOLD: 08/13/2020 [facility] Nicotine 2 MG Chewing Gum nicotine (polacrilex) 05/19/2020 12:00:00 AM EDT 2 mg completed [id number] nicotine (polacrilex) in [facility] 05/19/2020 08/17/2020 four times a day 30 2 mg gum [id number] 4 Brittany Barfield [id number] [facility] 24 HR Bupropion Hydrochloride 150 MG Extended Release Oral T ablet BUPROPION HCL 05/18/2020 12:00:00 AM EDT tablet extended release 24 hr 30 TAKE ONE TABLET BY MOUTH EVERY DAY TAKE ONE TABLET BY MOUTH EVERY DAY SOLD: 06/21/2020 [facility] 24 HR Bupropion Hydrochloride 150 MG Extended Release Oral T ablet BUPROPION HCL 05/18/2020 12:00:00 AM EDT tablet extended release 24 hr 30 TAKE ONE TABLET BY MOUTH EVERY DAY TAKE ONE TABLET BY MOUTH EVERY DAY SOLD: 05/19/2020 [facility] 24 HR Bupropion Hydrochloride 150 MG Extended Release Oral T ablet BUPROPION HCL 05/18/2020 12:00:00 AM EDT tablet extended release 24 hr 30 TAKE ONE TABLET BY MOUTH EVERY DAY TAKE ONE TABLET BY MOUTH EVERY DAY SOLD: 07/21/2020 [facility] 90 mg 04/19/2020 12:00:00 AM EDT tablet 60 TAKE ONE TABLET BY MOUTH TWICE A DAY TAKE ONE TABLET BY MOUTH TWICE A DAY SOLD: 08/13/2020 [facility] 75 mg 04/19/2020 12:00:00 AM EDT tablet 30 TAKE 600MG (8 TABLETS) BY MOUTH ONCE THEN TAKE ONE TABLET BY MOUTH EVERY DAY TAKE 600MG (8 TABLETS) BY MOUTH ONCE THEN TAKE ONE TABLET BY MOUTH EVERY DAY SOLD: 04/21/2020 [facility] 75 mg 04/19/2020 12:00:00 AM EDT tablet 30 TAKE 600MG (8 TABLETS) BY MOUTH ONCE THEN TAKE ONE TABLET BY MOUTH EVERY DAY TAKE 600MG (8 TABLETS) BY MOUTH ONCE THEN TAKE ONE TABLET BY MOUTH EVERY DAY SOLD: 07/17/2020 [facility] 90 mg 04/19/2020 12:00:00 AM EDT tablet 60 TAKE ONE TABLET BY MOUTH TWICE A DAY TAKE ONE TABLET BY MOUTH TWICE A DAY SOLD: 09/16/2020 [facility] 90 mg 04/19/2020 12:00:00 AM EDT tablet 60 TAKE ONE TABLET BY MOUTH TWICE A DAY TAKE ONE TABLET BY MOUTH TWICE A DAY SOLD: 05/20/2020 [facility] 75 mg 04/19/2020 12:00:00 AM EDT tablet 30 TAKE 600MG (8 TABLETS) BY MOUTH ONCE THEN TAKE ONE TABLET BY MOUTH EVERY DAY TAKE 600MG (8 TABLETS) BY MOUTH ONCE THEN TAKE ONE TABLET BY MOUTH EVERY DAY SOLD: 05/15/2020 [facility] 90 mg 04/19/2020 12:00:00 AM EDT tablet 4 TAKE ONE TABLET BY MOUTH TWICE A DAY TAKE ONE TABLET BY MOUTH TWICE A DAY SOLD: 04/19/2020 [facility] 75 mg 04/19/2020 12:00:00 AM EDT tablet 30 TAKE 600MG (8 TABLETS) BY MOUTH ONCE THEN TAKE ONE TABLET BY MOUTH EVERY DAY TAKE 600MG (8 TABLETS) BY MOUTH ONCE THEN TAKE ONE TABLET BY MOUTH EVERY DAY SOLD: 06/21/2020 [facility] 1,250 mcg (50,000 unit) 04/13/2020 12:00:00 AM EDT capsule 4 TAKE 1 CAPSULE BY MOUTH ONCE A WEEK TAKE 1 CAPSULE BY MOUTH ONCE A WEEK SOLD: 07/17/2020 [facility] 1,250 mcg (50,000 unit) 04/13/2020 12:00:00 AM EDT capsule 4 TAKE 1 CAPSULE BY MOUTH ONCE A WEEK TAKE 1 CAPSULE BY MOUTH ONCE A WEEK SOLD: 04/15/2020 [facility] 1,250 mcg (50,000 unit) 04/13/2020 12:00:00 AM EDT capsule 4 TAKE 1 CAPSULE BY MOUTH ONCE A WEEK TAKE 1 CAPSULE BY MOUTH ONCE A WEEK SOLD: 05/15/2020 [facility] 1,250 mcg (50,000 unit) 04/13/2020 12:00:00 AM EDT capsule 4 TAKE 1 CAPSULE BY MOUTH ONCE A WEEK TAKE 1 CAPSULE BY MOUTH ONCE A WEEK SOLD: 06/21/2020 [facility] Cholecalciferol 03484 UNT Oral Capsule v itamin D (CHOLECALCIFEROL) capsule 50,000 Units vitamin D (CHOLECALCIFEROL) capsule 50,000 Units 03/20 09:00:00 AM EDT 58114 U Oral active 50,000 Units, Oral, Every 7 days, First dose on 03/20/20 at 0900, For 30 days [facility] Medication administered onsite Aspirin 81 MG Chewable Tablet Aspirin 81 MG Oral Table t Chewable Aspirin 81 MG Oral Tablet Chewable 03/17/2020 12:00:00 AM EDT 81 mg Oral active Chew 1 tablet by Mouth daily [facility] Aspirin 81 MG Chewable Tablet Aspirin 81 MG Oral Table t Chewable Aspirin 81 MG Oral Tablet Chewable 03/17/2020 12:00:00 AM EDT 81 mg Oral aborted Chew 1 tablet by Mouth daily [facility] Acetaminophen 325 MG Oral Tablet Acetaminophen 325 MG Oral T ablet 03/16/2020 12:00:00 AM EDT 650 mg Oral active Take 2 tablets by mouth every 6 (six) hours as needed for Pain for up to 10 days [facility] Magnesium Hydroxide 80 MG/ML Oral Suspen terrance Magnesium Hydroxide 400 MG/5ML Oral Suspension (MILK OF MAGNESIA) Magnesium Hydroxide 400 MG/5ML Oral Susp ension (MILK OF MAGNESIA) 03/16/2020 12:00:00 AM EDT 45 mL Oral active Take 45 mLs by mouth daily as needed for Constipation for up to 5 days [facility] heparin (porcine) 5000 UNIT/ML injection 5,000 Units [id number] 03/15/2020 09:00:00 PM EDT 5000 U Subcutaneous active 5,000 Units, Subcutaneous, 2 Times Daily, First dose on Sat03/15/20 at 2100, For 30 days [facility] Medication administered onsite potassium chloride (K-DUR) dissolvable tablet 40 mEq [id number] 03/15/2020 09:15:00 AM EDT 40 meq Oral completed 40 mEq, Oral, Once, Sat03/15/20 at 0915, For 1 dose
May be dissolved in water for patients with a G-Tube or unable to swallow. If concern for clogging G-Tube, may contact Pharmacy to switch formulation to a powder packet.
[facility] Medication administered onsite Aspirin 81 MG Chewable Tablet aspirin chewable tablet 81 mg aspirin chewable tablet 81 mg 03/15/2020 09:00:00 AM EDT 81 mg Oral activ e 81 mg, Oral, Daily Standard, First dose on Sat03/15/20 at 0900, For 30 days
Chew tablet before swallowing.
[facility] Medication administered onsite Oxycodone Hydrochloride 5 MG Oral Tablet oxyCODONE (ROXICODONE) immediate release tablet 5 mg oxyCODONE (ROXICODONE) immediate release tablet 5 mg 03/15/2020 04:15:51 AM EDT 5 mg Oral active 5 mg, Oral, Every 4 hours PRN, Moderate Pain (Pain Scale Score 4-6), Starting Sat03/15/20 at 0415, For 3 days
Oxycodone immediate release is limited to 10 mg per dose. Higher doses ( only) require Pain Service consultation and approval.
[facility] Medication administered onsite sodium chloride (preservative free) 0.9 % flush 3 mL 03/15/2020 01:00:00 AM EDT 3 mL Intravenous active [Ord er 1 Start] Name: Peripheral IV Signed Summary: Routine, CONTINUOUS, Starting Sat03/14/20 at 1715, Until Sat03/15/20, For 1 day
Upon admission through end of procedure. Place IV away from planned Radial Access site., Pre-op [Order 1 End] [Order 2 Start] Name: sodium chloride (preservative free) 0.9 % flush 3 mL Signed Summary: 3 mL, Intravenous, Every 8 hours Standard, First dose on Sat03/15/20 at 0100, For 30 days, Pre-op
Saline Lock. Flush Q8H and after each use to Saline Lock.
[Order 2 End] [Order 3 Start] Name: sodium chloride (preservative free) 0.9 % flush 3 mL Signed Summary: 3 mL, Intravenous, PRN, Line Care, Starting Sat03/14/20 at 1714, For 30 days, Pre-op
Saline Lock. Flush Q8H and after each use to Saline Lock.
[Order 3 End] [Order 4 Start] Name: Saline Lock order Signed Summary: Routine, ONCE, Sat03/14/20 at 1715, For 1 occurrence
Pre-op [Order 4 End] [Order 5 Start] Name: NaCl infusion 0.9 % Signed Summary: at 0.2-10 mL/hr, Intra venous, PRN, For Meds, Starting Sat03/14/20 at 1714, For 30 days, Pre-op [Order 5 End] [Order 6 Start] Name: dextrose infusion 5 % Signed Summary: at 0.2-10 mL/hr, Intravenous, PRN, For Meds, Starting Sat03/14/20 at 1714, For 30 days, Pre-op [Order 6 End] [facility] Medication administered onsite Ticagrelor 90 MG Oral Tablet Ticagrelor 90 MG Oral Tab let (BRILINTA) Ticagrelor 90 MG Oral Tablet (BRILINTA) 03/15/2020 12:00:00 AM EDT 90 mg Oral active Take 1 tablet by mouth Two Times Daily [facility] atorvastatin 40 MG Oral Tablet atorvastatin (LIPITOR) tablet 40 mg atorvastatin (LIPITOR) tablet 40 mg 03/14/2020 10:00:00 PM EDT 40 mg Oral active 40 mg, Oral, Nightly, First dose on Sat03/14/20 at 2200, For 30 days [facility] Medication administered onsite Magnesium Hydroxide 80 MG/ML Oral Suspen terrance magnesium hydroxide (MILK OF MAGNESIA) 400 MG/5ML suspension 45 mL magnesium hydroxide (MILK OF MAGNESIA) 4 00 MG/5ML suspension 45 mL 03/14/2020 10:00:00 PM EDT 45 mL Oral active 45 mL, Oral, Nightly, First dose on Sat03/14/20 at 2200, For 30 days
If serum creatinine > 2 notify provider before administering.
[facility] Medication administered onsite 24 HR Bupropion Hydrochloride 150 MG Ext ended Release Oral Tablet buPROPion (WELLBUTRIN XL) 24 hr tablet 150 mg buPROPion (WELLBUTRIN XL) 24 hr tablet 1 50 mg 03/14/2020 10:00:00 PM EDT 150 mg Oral active 150 mg, Oral, Nightly, First dose on Sat03/14/20 at 2200, For 30 days
Do not crush or chew
[facility] Medication administered onsite gabapentin 300 MG Oral Capsule gabapentin (NEURONTIN) capsule 300 mg gabapentin (NEURONTIN) capsule 300 mg 03/14/2020 10:00:00 PM EDT 300 mg Oral active 300 mg, Oral, Nightly, First dose on Sat03/14/20 at 2200, For 30 days [facility] Medication administered onsite venlafaxine (EFFEXOR-XR) 24 hr capsule 225 mg 03/14/20 10:00:00 PM EDT 225 mg Oral active 225 mg, Or al, Nightly, First dose on Sat03/14/20 at 2200, For 30 days
Do not crush or chew
[facility] Medication administered onsite Ticagrelor 90 MG Oral Tablet ticagrelor (BRILINTA) tab let 90 mg ticagrelor (BRILINTA) tablet 90 mg 03/14/2020 09:00:00 PM EDT 90 mg Oral active 90 mg, Oral, 2 Times Daily, First dose on Sat03/14/20 at 2100, For 30 days [facility] Medication administered onsite buspirone hydrochloride 5 MG Oral Tablet busPIRone (BU SPAR) tablet 15 mg busPIRone (BUSPAR) tablet 15 mg 03/14/2020 09:00:00 PM EDT 15 mg O ral active 15 mg, Oral, 2 Times Daily, First dose on Sat03/14/20 at 2100, For 30 days [facility] Medication administered onsite Acetaminophen 325 MG Oral Tablet acetaminophen (TYLENO L) tablet 650 mg acetaminophen (TYLENOL) tablet 650 mg 03/14/2020 05:14:49 PM EDT 65 0 mg Oral active 650 mg, Oral, E very 6 hours PRN, Mild Pain (Pain Scale Score 1- 3), Headaches, Fever, Starting Sat03/14/20 at 1714, For 30 days
Maximum daily dose of acetaminophen is 3,000 mg from all sources in 24 hours.
[facility] Medication administered onsite Oxycodone Hydrochloride 5 MG Oral Tablet oxyCODONE (ROXICODONE) immediate release tablet 10 mg oxyCODONE (ROXICODONE) immediate release tablet 10 mg 03/14/2020 05:14:49 PM EDT 10 mg Oral active 10 mg, Oral, Every 4 hours PRN, Severe Pain (Pain Scale Score 7-10), Starting Sat03/14/20 at 1714, For 3 days
If no 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 or when 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 has been D/Cd.
Oxycodone immediate release is limited to 10 mg per dose. Higher doses ( only) require Pain Service consultation and approval.
[facility] Medication administered onsite 4 ML Labetalol hydrochloride 5 MG/ML [facility] labetalol (TRANDATE) injection 20 mg labetalol (TRANDATE) injection 20 mg 03/14/2020 05:14:33 PM EDT 20 mg Intravenous active 20 mg, Intrav enous, Every 4 hours PRN, High Blood Pressure, MAP more than 90 mmHg, Starting Sat03/14/20 at 1714, For 30 days
Hold for HR less than 60 bpm.
[facility] Medication administered onsite Bisacodyl 10 MG Rectal Suppository bisacodyl (DULCOLAX ) suppository 10 mg bisacodyl (DULCOLAX) suppository 10 mg 03/14/2020 05:14:33 PM EDT 10 mg Rectal active 10 mg, Rectal, Every 72 hours PRN, Constipation, Starting 03/14/20 at 1714, For 30 days
Hold if patient has had BM within the past 2 days.
[facility] Medication administered onsite sennosides, SNF 35.2 MG/ML Oral Solution senna (SENOKO T) syrup 10 mL senna (SENOKOT) syrup 10 mL 03/14/2020 05:14:33 PM EDT 10 mL Oral active 10 mL, Oral, Nightly PRN, Constipation, Starting Sat03/14/20 at 1714, For 30 days [facility] Medication administered onsite fentaNYL (SUBLIMAZE) (PF) injection 25 mcg [id number] 03/14/2020 05:14:33 PM EDT 25 ug Intravenous aborted 25 m cg, Intravenous, Every 2 hours PRN, Other, breakthrough pain, Starting Sat03/14/20 at 1714, For 3 days [facility] Medication administered onsite sennosides, SNF 8.6 MG Oral Tablet senna tablet 2 tablet sen na tablet 2 tablet 03/14/2020 05:14:33 PM EDT 2 {tbl} Oral active 2 tablet, Oral, Nightly PRN, Constipation, Starting 03/14/20 at 1714, For 30 days [facility] Medication administered onsite Ticagrelor 90 MG Oral Tablet ticagrelor (BRILINTA) tab let 180 mg ticagrelor (BRILINTA) tablet 180 mg 03/14/2020 04:30:00 PM EDT 180 mg Oral completed 180 mg, Oral, Once, Sat03/14/20 at 1630, For 1 dose [facility] Medication administered onsite NaCl infusion 0.9 % [id number] 03/14/2020 04:15:00 PM EDT Intravenous aborted at 100 mL/hr, Intrav enous, Continuous, Starting Sat03/14/20 at 1615, For 2 days [facility] Medication administered onsite verapamil (ISOPTIN) in NaCl 0.9 % injection 1 mg/mL (IR use only) 03/14/2020 12:18:10 PM EDT completed Code/Trauma Medication, Starting Sat03/14/20 at 1218 [facility] Medication administered onsite Nitroglycerin 5 MG/ML Injectable Solution nitroglyceri n injection nitroglycerin injection 03/14/2020 12:09:43 PM EDT complete d Code/Trauma Medication, Starting Sat03/14/20 at 1209 [facility] Medication administered onsite lidocaine (XYLOCAINE) 2 % injection [id number] 03/14/2020 12:09:21 PM EDT completed Code/Trauma Medicati on, Starting Sat03/14/20 at 1209 [facility] Medication administered onsite Lidocaine 40 MG/ML Topical Cream lidocaine (LMX) 4 % c ream lidocaine (LMX) 4 % cream 03/14/2020 09:30:00 AM EDT Topical completed Topical, Once, Sat03/14/20 at 0930, For 1 dose
Apply to right wrist MDD = 4 applications
[facility] Medication administered onsite 300 mg 03/10/2020 12:00:00 AM EDT capsule 30 TAKE ONE CAPSULE BY MOUTH AT BEDTIME FOR PAIN TAKE ONE CAPSULE BY MOUTH AT BEDTIME FOR PAIN SOLD: 03/15/20 20 [facility] 300 mg 03/10/2020 12:00:00 AM EDT capsule 30 TAKE ONE CAPSULE BY MOUTH AT BEDTIME FOR PAIN TAKE ONE CAPSULE BY MOUTH AT BEDTIME FOR PAIN SOLD: 07/21/20 20 [facility] 300 mg 03/10/2020 12:00:00 AM EDT capsule 30 TAKE ONE CAPSULE BY MOUTH AT BEDTIME FOR PAIN TAKE ONE CAPSULE BY MOUTH AT BEDTIME FOR PAIN SOLD: 06/21/20 20 [facility] 300 mg 03/10/2020 12:00:00 AM EDT capsule 30 TAKE ONE CAPSULE BY MOUTH AT BEDTIME FOR PAIN TAKE ONE CAPSULE BY MOUTH AT BEDTIME FOR PAIN SOLD: 08/23/19 21 [facility] atorvastatin 40 MG Oral Tablet ATORVASTATIN CALCIUM 01/29/2020 1 2:00:00 AM EDT tablet 30 TAKE ONE TABLET BY MOUTH EVERY E VENING TAKE ONE TABLET BY MOUTH EVERY EVENING SOLD: 03/08/2020 [facility] 40 mg 01/29/2020 12:00:00 AM EDT tablet 30 TAKE ONE TABLET BY MOUTH EVERY EVENING TAKE ONE TABLET BY MOUTH EVERY EVENING SOLD: 02/05/2020 [facility] atorvastatin 40 MG Oral Tablet ATORVASTATIN CALCIUM 01/29/2020 1 2:00:00 AM EDT tablet 30 TAKE ONE TABLET BY MOUTH EVERY E VENING TAKE ONE TABLET BY MOUTH EVERY EVENING SOLD: 04/11/2020 [facility] atorvastatin 40 MG Oral Tablet ATORVASTATIN CALCIUM 01/29/2020 1 2:00:00 AM EDT tablet 30 TAKE ONE TABLET BY MOUTH EVERY E VENING TAKE ONE TABLET BY MOUTH EVERY EVENING SOLD: 06/21/2020 [facility] atorvastatin 40 MG Oral Tablet ATORVASTATIN CALCIUM 01/29/2020 1 2:00:00 AM EDT tablet 30 TAKE ONE TABLET BY MOUTH EVERY E VENING TAKE ONE TABLET BY MOUTH EVERY EVENING SOLD: 07/21/2020 [facility] atorvastatin 40 MG Oral Tablet ATORVASTATIN CALCIUM 01/29/2020 1 2:00:00 AM EDT tablet 30 TAKE ONE TABLET BY MOUTH EVERY E VENING TAKE ONE TABLET BY MOUTH EVERY EVENING SOLD: 05/15/2020 [facility] gabapentin 300 MG Oral Capsule Gabapentin 300 MG Oral Capsule (NEURONTIN) Gabapentin 300 MG Oral Capsule (NEURONTIN) 01/27/2020 12:00:00 AM EDT aborted [facility] Acetaminophen 325 MG Oral Tablet acetaminophen (TYLENO L) tablet 650 mg acetaminophen (TYLENOL) tablet 650 mg 01/26/2020 02:00:00 PM EDT 65 0 mg Oral completed 650 mg, Oral, O nce, Sat01/26/20 at 1400, For 1 dose
Maximum daily dose of acetaminophen is 3,000 mg from all sources in 24 hours.
[facility] Medication administered onsite protamine injection [id number] 01/26/2020 12:12:32 PM EDT completed Code/Trauma Medication, Starting 01/04 at 1212 [facility] Medication administered onsite 4 ML Verapamil hydrochloride 2.5 MG/ML Injection verap jose g (ISOPTIN) injection verapamil (ISOPTIN) injection 01/26/2020 11:18:00 AM EDT completed Code/Trauma Medication, Starting Sat01/26/20 at 1118 [facility] Medication administered onsite 1 ML heparin sodium, porcine 1000 UNT/ML Injection heparin (porcine) 1000 units/mL injection heparin (porcine) 1000 units/mL injection 01/26/2020 1 1:14:54 AM EDT completed Code/T rauma Medication, Starting Sat01/26/20 at [facility] Medication administered onsite Nitroglycerin 5 MG/ML Injectable Solution nitroglyceri n injection nitroglycerin injection 01/26/2020 11:12:43 AM EDT complete d Code/Trauma Medication, Starting Sat01/26/[address] [place] [address] Medication administered onsite lidocaine (XYLOCAINE) 2 % injection [id number] 01/26/2020 11:12:33 AM EDT completed Code/Trauma Medicati on, Starting Sat01/26/[address] [place] [address] Medication administered onsite 2 ML Midazolam 1 MG/ML Injection midazolam (PF) (VERSE D) injection midazolam (PF) (VERSED) injection 01/26/2020 11:00:38 AM EDT completed Code/Trauma Medication, Starting Sat01/26/[address] [place] [address] Medication administered onsite fentaNYL (SUBLIMAZE) (PF) injection [id number] 01/26/2020 11:00:33 AM EDT completed Code/Trauma Medicati on, Starting Sat01/26/[address] [place] [address] Medication administered onsite Lidocaine 40 MG/ML Topical Cream lidocaine (LMX) 4 % c ream lidocaine (LMX) 4 % cream 01/26/2020 10:00:00 AM EDT Topical completed Topical, Once, Sat01/26/20 at 1000, For 1 dose
Apply to right wrist and snuffbox with tegaderm
Pre-op [facility] Medication administered onsite Nicotine 2 MG Chewing Gum nicotine polacrilex (NICORET TE) 2 MG gum nicotine polacrilex (NICORETTE) 2 MG gum 12/28/2019 12:00:00 AM EDT 2 mg O ral active Take 2 mg by mouth as needed [facility] buspirone hydrochloride 15 MG Oral Table t busPIRone HCl 15 MG Oral Tablet (BUSPAR) busPIRone HCl 15 MG Oral Tablet (BUSPAR) 12/28/2019 12:00:00 AM EDT aborted [facility] 14 mg/24 hr 12/24/2019 12:00:00 AM EDT patch 24 hour 28 APPLY ONE PATCH TO THE SKIN EVERY DAY APPLY ONE PATCH TO THE SKIN EVERY DAY SOLD: 12/28/2019 [facility] 150 mg 12/24/2019 12:00:00 AM EDT tablet extended release 24 hr 30 TAKE ONE TABLET BY MOUTH EVERY MORNING TAKE ONE TABLET BY MOUTH EVERY MORNING SOLD: 03/08/2020 [facility] 24 HR Bupropion Hydrochloride 150 MG Extended Release Oral T ablet BUPROPION HCL 12/24/2019 12:00:00 AM EDT tablet extended release 24 hr 30 TAKE ONE TABLET BY MOUTH EVERY MORNING TAKE ONE TABLET BY MOUTH EVERY MORNING SOLD: 12/28/2019 [facility] 24 HR Nicotine 0.583 MG/HR Transdermal P atch Nicotine 14 MG/24HR Transdermal Patch 24 Hour (NICODERM CQ) Nicotine 14 MG/24HR Transdermal Patch 24 Hour (NICODERM CQ) 12/24/2019 12:00:00 AM EDT abor zena APPLY ONE PATCH TO THE SKIN EVERY DAY [facility] 75 mg 12/24/2019 12:00:00 AM EDT capsule,extended releas e 24hr 90 TAKE THREE CAPSULES BY MOUTH EVERY DAY TAKE THREE CAPSULES BY MOUTH EVERY DAY SOLD: 02/09/2020 [facility] 75 mg 12/24/2019 12:00:00 AM EDT capsule,extended releas e 24hr 90 TAKE THREE CAPSULES BY MOUTH EVERY DAY TAKE THREE CAPSULES BY MOUTH EVERY DAY SOLD: 03/08/2020 [facility] 150 mg 12/24/2019 12:00:00 AM EDT tablet extended release 24 hr 30 TAKE ONE TABLET BY MOUTH EVERY MORNING TAKE ONE TABLET BY MOUTH EVERY MORNING SOLD: 02/09/2020 [facility] 75 mg 12/24/2019 12:00:00 AM EDT capsule,extended releas e 24hr 90 TAKE THREE CAPSULES BY MOUTH EVERY DAY TAKE THREE CAPSULES BY MOUTH EVERY DAY SOLD: 12/28/2019 [facility] 1,250 mcg (50,000 unit) 11/25/2019 12:00:00 AM EDT capsule 4 TAKE 1 CAPSULE BY MOUTH WEEKLY TAKE 1 CAPSULE BY MOUTH WEEKLY SOLD: 03/08/2020 [facility] 1,250 mcg (50,000 unit) 11/25/2019 12:00:00 AM EDT capsule 4 TAKE 1 CAPSULE BY MOUTH WEEKLY TAKE 1 CAPSULE BY MOUTH WEEKLY SOLD: 12/28/2019 [facility] 1,250 mcg (50,000 unit) 11/25/2019 12:00:00 AM EDT capsule 4 TAKE 1 CAPSULE BY MOUTH WEEKLY TAKE 1 CAPSULE BY MOUTH WEEKLY SOLD: 01/28/2020 [facility] 1,250 mcg (50,000 unit) 11/25/2019 12:00:00 AM EDT capsule 4 TAKE 1 CAPSULE BY MOUTH WEEKLY TAKE 1 CAPSULE BY MOUTH WEEKLY SOLD: 11/27/2019 [facility] Cholecalciferol 82263 UNT Oral Capsule V itamin D3 1.25 MG (10821 UT) Oral Capsule (CHOLECALCIFEROL) Vitamin D3 1.25 MG (74326 UT) Oral Capsu le (CHOLECALCIFEROL) 10/22/2019 12:00:00 AM EDT 58211 U Oral aborted Take 50,000 Units by mouth every 7 (seven) days TAKES ON MONDAYS [facility] buspirone hydrochloride 15 MG Oral Tablet BUSPIRONE HCL 09/27/2019 12:00:00 AM EST tablet 60 TAKE ONE TABLET BY MOUTH TWI CE A DAY TAKE ONE TABLET BY MOUTH TWICE A DAY SOLD: 03/08/2020 [facility] 24 HR Bupropion Hydrochloride 150 MG Extended Release Oral T ablet BUPROPION HCL 09/27/2019 12:00:00 AM EST tablet extended release 24 hr 30 TAKE ONE TABLET BY MOUTH EVERY MORNING TAKE ONE TABLET BY MOUTH EVERY MORNING SOLD: 11/05/2019 [facility] 150 mg 09/27/2019 12:00:00 AM EST tablet extended release 24 hr 30 TAKE ONE TABLET BY MOUTH EVERY MORNING TAKE ONE TABLET BY MOUTH EVERY MORNING SOLD: 12/07/2019 [facility] 24 HR venlafaxine 75 MG Extended Release Oral Capsule VENLAF AXINE HCL 09/27/2019 12:00:00 AM EST capsule,extended release 24hr 90 TA KE THREE CAPSULES BY MOUTH EVERY DAY TAKE THREE CAPSULES BY MOUTH EVERY DAY SOLD: 12/07/2019 [facility] 24 HR venlafaxine 75 MG Extended Release Oral Capsule VENLAF AXINE HCL 09/27/2019 12:00:00 AM EST capsule,extended release 24hr 90 TA KE THREE CAPSULES BY MOUTH EVERY DAY TAKE THREE CAPSULES BY MOUTH EVERY DAY SOLD: 11/05/2019 [facility] buspirone hydrochloride 15 MG Oral Tablet BUSPIRONE HCL 09/27/2019 12:00:00 AM EST tablet 60 TAKE ONE TABLET BY MOUTH TWI CE A DAY TAKE ONE TABLET BY MOUTH TWICE A DAY SOLD: 12/28/2019 [facility] 24 HR Bupropion Hydrochloride 150 MG Extended Release Oral T ablet BUPROPION HCL 09/27/2019 12:00:00 AM EST tablet extended release 24 hr 30 TAKE ONE TABLET BY MOUTH EVERY MORNING TAKE ONE TABLET BY MOUTH EVERY MORNING SOLD: 10/01/2019 [facility] Prazosin 1 MG Oral Capsule Prazosin HCl 1 MG Oral Caps ule (MINIPRESS) Prazosin HCl 1 MG Oral Capsule (MINIPRESS) 09/27/2019 12:00:00 AM EST [facility] 1 mg 09/27/2019 12:00:00 AM EST capsule 30 TAKE ONE CAPSULE BY MOUTH AT BEDTIME FOR NIGHTMARES TAKE ONE CAPSULE BY MOUTH AT BEDTIME FOR NIGHTMARES SO LD: 10/01/2019 [facility] buspirone hydrochloride 15 MG Oral Tablet BUSPIRONE HCL 09/27/2019 12:00:00 AM EST tablet 60 TAKE ONE TABLET BY MOUTH TWI CE A DAY TAKE ONE TABLET BY MOUTH TWICE A DAY SOLD: 10/01/2019 [facility] 24 HR venlafaxine 75 MG Extended Release Oral Capsule VENLAF AXINE HCL 09/27/2019 12:00:00 AM EST capsule,extended release 24hr 90 TA KE THREE CAPSULES BY MOUTH EVERY DAY TAKE THREE CAPSULES BY MOUTH EVERY DAY SOLD: 10/01/2019 [facility] 2 mg 09/24/2019 12:00:00 AM EST gum 110 CHEW ONE PIECE OF GUM BUCCALLY FOUR TIMES A DAY CHEW ONE PIECE OF GUM BUCCALLY FOUR TIMES A DAY SOLD: 11/05/2019 [facility] 2 mg 09/24/2019 12:00:00 AM EST gum 110 CHEW ONE PIECE OF GUM BUCCALLY FOUR TIMES A DAY CHEW ONE PIECE OF GUM BUCCALLY FOUR TIMES A DAY SOLD: 10/01/2019 [facility] buspirone hydrochloride 15 MG Oral Tablet BUSPIRONE HCL 09/01/2019 12:00:00 AM EST tablet 60 TAKE ONE TABLET BY MOUTH TWI CE A DAY TAKE ONE TABLET BY MOUTH TWICE A DAY SOLD: 09/01/2019 [facility] buspirone hydrochloride 15 MG Oral Tablet BUSPIRONE HCL 09/01/2019 12:00:00 AM EST tablet 60 TAKE ONE TABLET BY MOUTH TWI CE A DAY TAKE ONE TABLET BY MOUTH TWICE A DAY SOLD: 05/15/2020 [facility] buspirone hydrochloride 15 MG Oral Tablet BUSPIRONE HCL 09/01/2019 12:00:00 AM EST tablet 60 TAKE ONE TABLET BY MOUTH TWI CE A DAY TAKE ONE TABLET BY MOUTH TWICE A DAY SOLD: 04/11/2020 [facility] 75 mg 09/01/2019 12:00:00 AM EST capsule,extended releas e 24hr 90 TAKE THREE CAPSULES BY MOUTH EVERY DAY TAKE THREE CAPSULES BY MOUTH EVERY DAY SOLD: 04/11/2020 [facility] 75 mg 09/01/2019 12:00:00 AM EST capsule,extended releas e 24hr 90 TAKE THREE CAPSULES BY MOUTH EVERY DAY TAKE THREE CAPSULES BY MOUTH EVERY DAY SOLD: 09/01/2019 [facility] 75 mg 09/01/2019 12:00:00 AM EST capsule,extended releas e 24hr 90 TAKE THREE CAPSULES BY MOUTH EVERY DAY TAKE THREE CAPSULES BY MOUTH EVERY DAY SOLD: 05/15/2020 [facility] 300 mg 07/06/2019 12:00:00 AM EST capsule 30 TAKE ONE CAPSULE BY MOUTH AT BEDTIME FOR PAIN TAKE ONE CAPSULE BY MOUTH AT BEDTIME FOR PAIN SOLD: 12/28/19 20 [facility] 300 mg 07/06/2019 12:00:00 AM EST capsule 30 TAKE ONE CAPSULE BY MOUTH AT BEDTIME FOR PAIN TAKE ONE CAPSULE BY MOUTH AT BEDTIME FOR PAIN SOLD: 10/22/19 20 [facility] 4 mg 07/06/2019 12:00:00 AM EST gum 100 USE 1 PIECE EVERY 1-2 HOURS NEEDED FOR CRAVINGS MAXIMUM DAILY DOSE = 24 PIECES USE 1 PIECE EVERY 1-2 HOURS NEEDED FOR CRAVINGS MAXIMUM DAILY DOSE = 24 PIECES SOLD: 12/28/2019 [facility] 4 mg 07/06/2019 12:00:00 AM EST gum 100 USE 1 PIECE EVERY 1-2 HOURS NEEDED FOR CRAVINGS MAXIMUM DAILY DOSE = 24 PIECES USE 1 PIECE EVERY 1-2 HOURS NEEDED FOR CRAVINGS MAXIMUM DAILY DOSE = 24 PIECES SOLD: 08/20/2019 [facility] 300 mg 07/06/2019 12:00:00 AM EST capsule 30 TAKE ONE CAPSULE BY MOUTH AT BEDTIME FOR PAIN TAKE ONE CAPSULE BY MOUTH AT BEDTIME FOR PAIN SOLD: 11/21/19 20 [facility] 300 mg 07/06/2019 12:00:00 AM EST capsule 30 TAKE ONE CAPSULE BY MOUTH AT BEDTIME FOR PAIN TAKE ONE CAPSULE BY MOUTH AT BEDTIME FOR PAIN SOLD: 09/01/19 20 [facility] 300 mg 07/06/2019 12:00:00 AM EST capsule 30 TAKE ONE CAPSULE BY MOUTH AT BEDTIME FOR PAIN TAKE ONE CAPSULE BY MOUTH AT BEDTIME FOR PAIN SOLD: 01/28/20 20 [facility] 40 mg 06/26/2019 12:00:00 AM EST tablet 30 TAKE ONE TABLET BY MOUTH EVERY EVENING TAKE ONE TABLET BY MOUTH EVERY EVENING SOLD: 12/28/2019 [facility] 40 mg 06/26/2019 12:00:00 AM EST tablet 30 TAKE ONE TABLET BY MOUTH EVERY EVENING TAKE ONE TABLET BY MOUTH EVERY EVENING SOLD: 10/22/2019 [facility] 40 mg 06/26/2019 12:00:00 AM EST tablet 30 TAKE ONE TABLET BY MOUTH EVERY EVENING TAKE ONE TABLET BY MOUTH EVERY EVENING SOLD: 11/21/2019 [facility] 40 mg 06/26/2019 12:00:00 AM EST tablet 30 TAKE ONE TABLET BY MOUTH EVERY EVENING TAKE ONE TABLET BY MOUTH EVERY EVENING SOLD: 09/01/2019 [facility] 40 mg 06/26/2019 12:00:00 AM EST tablet 30 TAKE ONE TABLET BY MOUTH EVERY EVENING TAKE ONE TABLET BY MOUTH EVERY EVENING SOLD: 07/28/2019 [facility] 150 mg 06/20/2019 12:00:00 AM EST tablet extended release 24 hr 30 TAKE ONE TABLET BY MOUTH EVERY MORNING TAKE ONE TABLET BY MOUTH EVERY MORNING SOLD: 09/01/2019 [facility] 1 mg 06/20/2019 12:00:00 AM EST capsule 30 TAKE ONE CAPSULE BY MOUTH EVERY DAY AT BEDTIME FOR NIGHTMARES TAKE ONE CAPSULE BY MOUTH EVERY DAY AT B EDTIME FOR NIGHTMARES SOLD: 07/28/2019 [facility] 150 mg 06/20/2019 12:00:00 AM EST tablet extended release 24 hr 30 TAKE ONE TABLET BY MOUTH EVERY MORNING TAKE ONE TABLET BY MOUTH EVERY MORNING SOLD: 07/28/2019 [facility] 1 mg 06/20/2019 12:00:00 AM EST capsule 30 TAKE ONE CAPSULE BY MOUTH EVERY DAY AT BEDTIME FOR NIGHTMARES TAKE ONE CAPSULE BY MOUTH EVERY DAY AT B EDTIME FOR NIGHTMARES SOLD: 09/01/2019 [facility] buspirone hydrochloride 15 MG Oral Tablet BUSPIRONE HCL 06/10/2019 12:00:00 AM EST tablet 60 TAKE ONE TABLET BY MOUTH TWI CE A DAY TAKE ONE TABLET BY MOUTH TWICE A DAY SOLD: 07/28/2019 [facility] 75 mg 06/01/2019 12:00:00 AM EDT capsule,extended releas e 24hr 90 TAKE THREE CAPSULES BY MOUTH AT BEDTIME TAKE THREE CAPSULES BY MOUTH AT BEDTIME SOLD: 07/28/2019 [facility] 24 HR Bupropion Hydrochloride 150 MG Extended Release Oral T ablet BUPROPION HCL 05/25/2019 12:00:00 AM EDT tablet extended release 24 hr 30 TAKE ONE TABLET BY MOUTH EVERY DAY TAKE ONE TABLET BY MOUTH EVERY DAY SOLD: 04/11/2020 [facility] 1,250 mcg (50,000 unit) 05/21/2019 12:00:00 AM EDT capsule 4 TAKE 1 CAPSULE BY MOUTH WEEKLY TAKE 1 CAPSULE BY MOUTH WEEKLY SOLD: 09/01/2019 [facility] 1,250 mcg (50,000 unit) 05/21/2019 12:00:00 AM EDT capsule 4 TAKE 1 CAPSULE BY MOUTH WEEKLY TAKE 1 CAPSULE BY MOUTH WEEKLY SOLD: 07/28/2019 [facility] 1,250 mcg (50,000 unit) 05/21/2019 12:00:00 AM EDT capsule 4 TAKE 1 CAPSULE BY MOUTH WEEKLY TAKE 1 CAPSULE BY MOUTH WEEKLY SOLD: 10/22/2019 [facility] 24 HR Nicotine 0.875 MG/HR Transdermal Patch nicotine (NICODERM CQ) 21 MG/24HR nicotine (NICODERM CQ) 21 MG/24HR 1 {patch} Transdermal aborted Place 1 patch onto the skin every 24 (twenty-four) hours [facility] Aspirin 81 MG Delayed Release Oral Table t Aspirin 81 MG Oral Tablet Delayed Release Aspirin 81 MG Oral Tablet Delayed Release 324 mg Oral aborted Take 324 [facility] Payer name Policy type / Coverage type Policy ID Covered republican ID Covered republican's relationship to shankar Policy Shankar Plan Information [facility] [id number] SP [id number] [facility] I [id number] Self [id number] Medicaid S [id number] S [id number] Managed Care - [facility] Community Plan P [id number] S [id number] [facility]) O [id number] S [id number] [facility] I [id number] Self [id number] Medicaid S [id number] S [id number] [facility] [id number] SP [id number] Managed Care - [facility] Community Plan P [id number] S [id number] Medicaid S [id number] S [id number] Managed Care - Community Plan [facility] P [id number] S [id number] Managed Care - Community Plan [facility] P [id number] S [id number] [facility] COMMUNITY PLAN MCDO [id number] SP [id number] Managed Care - Community Plan [facility] P [id number] S [id number] Managed Care - Community Plan [facility] P [id number] S [id number] Medicaid S [id number] S [id number] Managed Care - Community Plan [facility] P UNAVAILABLE S UNAVAILABLE Medicaid S UNAVAILABLE S UNAVAILA BLE [facility] COMMUNITY PLAN MCDO [id number] SP [id number] [facility] O [id number] S [id number] MEDICAID [id number] SP [id number] Problems, Conditions, and Diagnoses Code Display Name Description Problem Type Effective Dates Data Source(s) R69. Illness, unspecified Illness, unspecified Condition 08/24/2020 12:00:00 AM EST [facility] ([facility]) F40.10 Social phobia, unspecified Social Anxiety Disord er (Social Phobia) Condition 08/24/2020 12:00:00 AM EST [facility] ([facility]) F33.0 Major depressive disorder, recurrent, mi ld Major Depressive Disorder, Recurrent episode, Mild Condition 08/24/2020 12:00:00 AM EST [facility] I67.1 Cerebral aneurysm, nonruptured Cerebral arterial aneur ysm 03/09/2020 02:08:11 PM EDT [facility] I67.1 Cerebral aneurysm, nonruptured Cerebral aneurysm, nonr uptured Diagnosis 03/15/2020 10:21:46 AM [facility] pretest pretest Diagnosis 03/10/2020 09:31:24 AM [facility] hosp fol hosp fol Diagnosis 10/07/2019 12:52:19 PM [facility] Surgeries/Procedures Procedure Description Date Indications Data Source(s) MHC Telemed E/M Lvl 3--Est pt 08/24/2020 12:00:00 AM EST - 08/24/2020 12:00:00 AM EST [facility] ([facility]) MHC Telemed E/M Lvl 3--Est pt 08/24/2020 12:00:[address] [facility] OFF[facility] OUTPATIENT VISIT 15 MINUTES 07/27 12:00:00 AM EST - 07/27/2020 12:00:00 AM EST [facility] ([facility]) OFFICE OUTPATIENT VISIT 15 MINUTES 07/27/2020 12:00:00 AM EST [facility] Telemed E/M Lvl 3--Est pt 05/19/2020 12:00:00 AM EDT - 05/19/2020 12:00:00 AM EDT [facility] ([facility]) MHC Telemed E/M Lvl 3--Est pt 05/19/2020 12:00:00 AM E DT [facility] Telemed E/M Lvl 3--Est pt 05/18/2020 12:00:00 AM EDT - 05/18/2020 12:00:00 AM EDT [facility] ([facility]) MHC Telemed E/M Lvl 3--Est pt 05/18/2020 12:00:00 AM E DT [facility] VERIFYNOW P2Y12 VERIFYNOW P2Y12 Routine 03/16/2020 12:28 PM EDT 03/16/2020 12:28:00 PM [facility] BLOOD COUNT COMPLETE AUTOMATED CBC Routine 03/16/2020 6:08 A M EDT 03/16/2020 06:08:00 AM EDT [facility] BASIC METABOLIC PANEL CALCIUM TOTAL BASIC METABOLIC PANEL Routi ne 03/16/2020 6:08 AM EDT 03/16/2020 06:08:00 AM EDT [facility] LAB US DOPPLER LOWER EXTREMITY UNILATERAL ARTERIA L LTD [id number] [facility] LAB US DOPPLER LOWER EXTREMITY UNILATERAL ARTERIAL LTD [id number] Routine 03/15/2020 8:08 AM EDT 03/15/2020 08:08:00 AM EDT [facility] BLOOD COUNT COMPLETE AUTOMATED CBC Routine 03/15/2020 6:00 A M EDT 03/15/2020 06:00:00 AM EDT [facility] BASIC METABOLIC PANEL CALCIUM TOTAL BASIC METABOLIC PANEL Routi ne 03/15/2020 6:00 AM EDT 03/15/2020 06:00:00 AM EDT [facility] BLOOD COUNT COMPLETE AUTO&AUTO DIFRNTL WBC COUNT CBC AND DIFFER ENTIAL STAT 03/14/2020 4:15 PM EDT 03/14/2020 04:15:00 PM EDT [facility] BASIC METABOLIC PANEL CALCIUM TOTAL BASIC METABOLIC PANEL STAT 03/14/2020 4:15 PM EDT 03/14/2020 04:15:00 PM EDT [facility] POCT ISTAT ACT POCT ISTAT ACT Routine 03/14/2020 3:14 PM EDT 03/14/2020 03:14:00 PM EDT [facility] POCT ISTAT ACT POCT ISTAT ACT Routine 03/14/2020 2:02 PM EDT 03/14/2020 02:02:00 PM EDT [facility] POCT ISTAT ACT POCT ISTAT ACT Routine 03/14/2020 1:40 PM EDT [facility] Routine 03/14/2020 1:17 PM EDT [facility]14[facility]2020 [facility] POCT ISTAT ACT Routine 03/14/2020 12:43 PM EDT 03/14/2020 12:43:00 PM EDT [facility] POCT ISTAT ACT POCT ISTAT ACT Routine 03/14/2020 12:15 PM EDT 03/14[facility]2020 [facility] CREATININE POCT ISTAT CREATININE Routine 01/26/2020 10 :50 AM EDT 01/26/2020 02:50:00 PM EDT [facility] MHC Telemed E/M Lvl 3--Est pt 12/23/2019 12:00:00 AM EDT - 12/23/2019 12:00:00 AM EDT [facility] ([facility]) MHC Telemed E/M Lvl 3--Est pt 12/23/2019 12:00:00 AM E DT [facility] Brief Individual Psychotherapy - 30 min 11/25/2019 12:00:00 AM EDT - 11/25/2019 12:00:00 AM EDT [facility] ([facility]) Brief Individual Psychotherapy - 30 min 11/25/2019 12: 00:00 AM EDT [facility] OFF[facility] OUTPATIENT VISIT 15 MINUTES 09/23 12:00:00 AM EST - 09/23/2019 12:00:00 AM EST [facility] ([facility]) OFFICE OUTPATIENT VISIT 15 MINUTES 09/23/2019 12:00:00 AM EST [facility] OFF[facility] OUTPATIENT VISIT 10 MINUTES 08/26 12:00:00 AM EST - 08/26/2019 12:00:00 AM EST [facility] ([facility]) OFFICE OUTPATIENT VISIT 10 MINUTES 08/26/2019 12:00:00 AM EST [facility] Results ID Date Data Source [id number] 04/12/2020 09:48:57 AM EDT [facility] Name Value Range Interpretation Code Description Data Samantha rce(s) Supporting Document(s) Progress Note [facility] ZXHGCd5pScQSNiHo41/ZXIunJAZsb4OdMOojHHr8VWxfKCXfK0CrMIA7eY1sEYL3YEpEIuRkZpStMNW7 lbm [file] tmlrgubnKwEfohtVUh68exheNcqisK4Bhhuo4qjTVho7Lxui184CmGcZt79+YS4JHi9d73+health inspector+/VIDb [file] 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+Cd4BJKVaFVr9S6O0LGLhHLx8S2KOJ3YBXSVeDFjoFVnwIKUtHXr7S5J1VVPuM1XHZ9Lyyamlds7+ OH2WF51VMRZqPAm8Y3B9eLIiA2O5yDlAfCO4WO7SQL 3XzAw3kKLwzT8+PE2UU2JKQkUgVLa7O0J5bATpZ5U4ePrOuJM4NH3ZRT1MkNPyLXLkaiOfJk6xV1SRDK iPWxACKAW9LI3JtJDmCZ8YdCGDL2GigCVkSt7rVXhwtXYtiS2zJv1kXErpMK5FKlQGUTuQPHQ7PI7WfR ZcOG9DoBUHR9UeiOZtXi2tEMutlJDlfj7+IE0GEFUz Vn1YYh2+PXptzpAaDfhRPkT9SAPse3UfQTx8IN4WXI4fiAktMGY7Pg6DhEO5bAJzX0uWMT2HxWAyZ32g zIPmUVQzNh4GDvG3gyLdwI8LHW50dOJag7N4LYGvN4neBKzbb00jEUkaDLwYHO1fRGMVTUriUQjuVCB5 FlIuluypZIUyTd5KYaCvQEt5eH0eeOE5QZF1EckeiD OpHDefNlNrTjSfAgC4tElezfh9RMleII7eLYqssgfyOLNqJhp+CItpDZGeTKUwTfsZQNBltF5ruyP7fu OzQWqfbFTfQa3jw9k0DsniPb9cQw6fXQx1AcSjFgZxYYYrQl9oyM56EQbtzePyVg1BDxUoZLP4F5JkAe pSREY+MPcoPBpwcDo3lKVtQOMmBp8LXQDgWAXqOVDt ICAgICAgICAgICAgICAgICAgICAgICAgICAgICAgICAgICAgICAgICAgICAgICAgICAgICAgICAgICAg GDUsANJjCRPuXXIdMVUpKONxSLQdGZFcYGGyGKXxIC3NOJWdEDIbICViFVJlANQnACOmDPXiCPLiOOEh ICAgICAgICAgICAgICAgICAgICAgICAgICAgICAgIC SjHORlNJWnZJWeSMZwFKNyMYVhOEZuANTzLYSwZKVpHMKzSAGjNVToJF5WHVMhIJOcBVUqXXOtZUCzLA AgICAgICAgICAgICAgICAgICAgICAgICAgICAgICAgICAgICAgICAgICAgICAgICAgICAgICAgICAgIC YmDKUvPNDeTDEgIUQgQUGzBZDnRHJuWA9TJFUsHHIm ICAgICAgICAgICAgICAgICAgICAgICAgICAgICAgICAgICAgICAgICAgICAgICAgICAgICAgICAgICAg FPTkWLItOYZbQXUnDISbRHSoIVZbURTqHYSaAQEoEINkLV6CEZMgTWQrQCLbLHMaQIWgOKXzWKDdOCEn ICAgICAgICAgICAgICAgICAgICAgICAgICAgICAgIC YeSMXdYIBbXQAqXGZxRUKzGRUzELKvNDBjOVIkECLbTWKuDOYoQOIdHVUyAI8NPVMaUNUtIZQdKLFoXB AgICAgICAgICAgICAgICAgICAgICAgICAgICAgICAgICAgICAgICAgICAgICAgICAgICAgICAgICAgIC EcRXZnDAPoYXCgABRsTIFoJDUaHTBxUECsYX2HUQLn ICAgICAgICAgICAgICAgICAgICAgICAgICAgICAgICAgICAgICAgICAgICAgICAgICAgICAgICAgICAg ITYmLIBnOINiMOQbKWWaVZMqVQRiRKQpMFCqGOTfQSFfGCTwIF4UAFQtKIPsRCPmYWQmPZIrYRXjNTPy ICAgICAgICAgICAgICAgICAgICAgICAgICAgICAgIC PbKJBxTDGvHTBnALQhNSNrOIAcMCJfRGHfBYTlXAPeYRUgCHOcBTYuMYKuJVOyVL6HYKMoYMZjWVVbGH AgICAgICAgICAgICAgICAgICAgICAgICAgICAgICAgICAgICAgICAgICAgICAgICAgICAgICAgICAgIC OaZEPqVXHlTFQgSXTqDZMhUDWvEHShDIZyENXgUH4K ICAgICAgICAgICAgICAgICAgICAgICAgICAgICAgICAgICAgICAgICAgICAgICAgICAgICAgICAgICAg ACVcKXNlESTaAIXyIURzNZApHEPwPFLmYCSeTPUvNDQnHBCmOATwKR8VTP77oONkj9I2RZAvCT5imfa/ Rm6WOXgnlpWicJYwIQ0FFeJvHT9eib7VMwNoUE1lxe 1FBXnEZqPcZ0T4fBDeWHVzEPWVNyEgX89zSQmkBy91MKscMBNzQfHfSCq9Zv1PUdAvI4htCGYbLwH7KY EsTeT6GQBjLyMrCZtxDG0Ve6CoaDBpQTv+Po0KBG4uf5HuRYdnGgPwGF2sbv3QLKvMQmJnQ1OdmsF4MV Y6DKLtBh7MHWWsETVodDJhHCXeTKLMXxFyI2FwnP41 IDENCj4+RGwfrrDlTumNDzW7NUDhi1YsGNp2MP4HOTOxXDe3iIYkVTHiS9Jnp3YrZf69DCXgInbqM2Ul qJCuACBBYHuxzSqcQMGBEFYlvBR4ZxpvLvAjGSQzBUbfDWIPYNxVEcWxU8Zjk7EfDvA9BWYxTvDyEXgb SYEgCiG1NW27rHmeTD5DFMUjDSUzCW32UGC9MWGrSr 6HTi3VChFmSA1bul8FVxsyVGWoYtzUJmd2QYaiVU0UwZIrJ9GxvQVfi7aGXzQtL8KXIMX8KSNzSu8SXI LnCuGqFXLmITbtFW0vMWTsPRJPeCpuhcC8AC6BAA1fkoMyBL3OFjWsMt0rYw3CNhFiJ1SdX2PkKIXqCG LLZStiIM6TMQzfKV6tPN4Oy1TMtSFbrE2zqj9NBHSj ZCGxOjspyv7NZxchN3R4fEveHQQmCedjYVPBVCffSE1SCZOwRIX1SRGcGsZgQHRWQwGgL14bRL5VT0Zw e97fCfF3FTOsMdJnHCcrWU36dWvuusTziNItmSjdSK3EBz2+DQplbmRvYmoNCnhyZWYNCjAgMzANCjAw MGJbYLDkCANlZqB3VrJcXo2NTUVnVPCwNCBrUrSwXR XkKGDmMFzlIEJoBPS6UuM5RHGnDSHdZL1YYxBgWLKzJaX7RBHwYKOvWBAcuf4ZZGVgOFRoEHE3YbMlSW IjJYYxKQupFBJkHOH5TVq5YJXgOBAyGY4OOrYgFLWnDOKmXCSpSWKkIAQdom9LXMPoBJWkIst9PbNxNB EjCMXmNQerQSYyRKD4IRehSMBmVLIrYP2VCaKtLPHx RHiiAHKkKCEiUCDgqy7IUAYoUOEhUZAwWwPgLAMaPUAgCAhlPSBlILZ6KNU8CTWfBSHpIY6EKuHjUYEk KNljJcWnNICjDECnxo5RVRQvOKQoBQJ1PWUoDLQbSTLcRZgrQNXdKEE6PbU1VYVwUMByJB6JVyJtZRLn CbWkMJNpEGJzPVSoli8AOTBoZBFuHMAsHCYdRQCnXT DoJYywIHLhLYMtIfKjHOTqHCUyNO0TElImNDSmEzJ7MJKwNMTnMVKrwr3NDOAqHHVxOaHnIbXjQNWxAF EbYDzeADXvMJQqKEreQSBfVDFlJU0NRvOjGJTpSgDaOFEmEANmKMPstv8NDTEcPILuSdTkNfEhXNRtBA ZpQAuvEIEoKWT4DiD7PBNxAKOwSZ5MPuPpHACvHdP5 TPPmPXTuNAZjaq1FJCYhDPIsXYbqTcNeXJNtUTQeEYvjRDFaRWY9NZW8HMMuWJYzSS8WUcUkKYHpHbQ8 TIgeOOStSIIbba9WKPPzMQGjJsV6DEZvTMLdEEDaLPhsJUAsWCR0EBC0LVBxQXIsLK0SNhIdKOneNCXQ Ggj7RLgcF2l1ZOJsID7CM7Klz2XvLvdeXQIYQLplMV 0ltcQwSUPbAq2HX1mZMkz3OkX4IkLgRuRfRjKeAXK8HvUwDEZyDyBhN6EmF8HbGS1tBHZ3INvsMDKcZ3 O3BxQgShObVrYzUAGzKdH1PbBdNLXpStQcYL3WJu9JPiR1JZZ6bBVqDu8NNhguPtJQEkRySN6JFAy= ID Date Data Source [id number] 03/31/2020 10:05:18 AM EDT [facility] IR ARTERIOGRAM CEREBRALFINAL RESULTInter preted by:Dieter Gibson, RIYAreoperative diagnosis: Unruptured left middle cerebral artery aneurysm measuring 5.2 x 4.9 x 7 mm with 4 mm neck with multiple additional aneurysms by diagnostic cerebral angiographyPostoperative diagnosis:No significant change in left middle cerebral artery or left internal carotid artery aneurysms by digital subtraction angiography; near-complete occlusion of left middle cerebral artery aneurysm status post stent-assisted WEB embolizationProcedures performed:1. Transradial and transfemoral diagnostic cerebral angiogram2. Selective left internal carotid artery angiogram x33. Rotational/3-D angiogram left internal carotid artery x24. Superselective left middle cerebral artery angiogram5. Web embolization of left middle cerebral artery aneurysm6. Stenting of left middle cerebral artery M1/M2 segment for aneurysm neck reconstruction7. Control angiogram of left internal carotid and left middle cerebral artery x98. Left common carotid artery angiogram9. Right common femoral artery [id number]. Supervision and interpretationSurgeon: Dieter Gibson M.D.Building Maintenance Mechanic: Tatiana Duong M.D.Anesthesia: General endotracheal anesthesia with neurophysiologic monitoringNeurophysiologic monitoring: No sustained changes in monitoringComplications: NoneTotal fluoroscopy time/dose: 39.5 minutes; 2366 mGyContrast: Omnipaque-300, 90 mLIndications for the procedure: This 59-year-old female presents for elective embolization of left middle cerebral artery aneurysm. I had a long discussion with the patient and family at the bedside detailing the clinical and radiographic findings and options for additional diagnostic testing including transradial and or transfemoral diagnostic cerebral angiography with possible embolization of left middle cerebral artery aneurysm with possible web device, possible coils, possible stent, possible balloon assist, possible a humanitarian use device implant under general endotracheal anesthesia with neurophysiologic monitoring. We specifically discussed the risks of the procedure including but not limited to: Bleeding, infection, hand/wrist/arm hematoma, retroperitoneal hematoma, arterial dissection, injury to limb, loss of hand or arm, contrast dye induced renal failure including need for hemodialysis, allergic reaction, radiation exposure including hair loss and zhao, stroke, weakness, pain, numbness, paralysis, difficulty speaking and/or understanding speech, blindness, aneurysm rupture, aneurysm recurrence, failure to treat, unanticipated and/or anesthesia complications, intracranial hemorrhage, coma, , need for additional procedures. The patient and family verbalized understanding and wished to proceed despite the risks. Informed consent was obtained and witnessed by nursing staff in the holding area.Procedure: The patient was brought directly to the angiography suite and laid supine on the angiography table. She underwent the uneventful induction of general endotracheal anesthesia and placement of histologic monitoring leads. Anesthesia was controlled by a separate, dedicated anesthesia team. The bilateral groins and right wrist was prepped and draped in standard sterile fashion, and we underwent [facility] standard timeout for patient and site verification and communication among all staff. A Barbeau test was performed to confirm patency of the radiopalmar arch. Pulse oximetry was monitored on the right first or second digit throughout the procedure. The right radial pulse at the wrist was palpated and the surrounding area was anesthetized with subcutaneous injection of 2% lidocaine. The right radial artery was accessed using micropuncture technique. A 6 [place] radial glide sheath was placed using Seldinger technique. The sheath was secured in place with Steri-St rips, it was back bled and flushed and connected to a continuous heparinized pressurized bag of saline at a slow constant drip rate. The patient was slowly administered 2.5 mg verapamil in 1 ml and 200 mcg nitroglycerin in 2 ml into the right radial artery through the radial glide sheath after dilution with arterial blood. Intravenous bolus of 3000 units of heparin was administered for thromboembolic prophylaxis. Subsequently, a 5 [place] Tate 2 glide catheter was advanced through the radial sheath under fluoroscopic guidance over the 035 glide wire to the level of the aortic arch where the wire was partially withdrawn and the secondary curve was formed in the descending aorta. The formed Tate 2 catheter was utilized for selective catheterization of the left common carotid artery where roadmap views were obtained. Roadmap views of the left common carotid artery demonstrate no evidence of hemodynamically significant stenosis or tortuosity. Under roadmap views, the left internal carotid artery was selectively catheterized over the Glidewire. The wire was removed, the catheter was flushed, and flow was checked. Subsequently, selective left internal carotid artery angiography was performed in [place] and lateral views over the intracranial circulation followed by rotational angiography followed by magnified views over the aneurysm to obtain working views for planned embolization procedure. Rotational angiogram was performed from the cervical left internal carotid artery catheter position. Rotational views were sent to a separate workstation for reprocessing and three-dimensional rendering. Selective left internal carotid artery angiography demonstrates no change in appearance of the left middle cerebral artery and left internal carotid artery aneurysms, and posterior communicating artery infundibulum, compared to the prior angiogram. Careful measurements of the left middle cerebral artery aneurysm including the surrounding vessels were obtained for planned device selection. Additional me asurements were made and calibrated against the width of the distal access catheter on subsequent angiograms. The remainder of the left internal carotid artery circulation is preserved without change compared to prior angiography.After multiple attempts to obtain adequate guide catheter access from the right radial artery sheath position, decision was made to convert to transfemoral approach because of inadequate length and support for planned embolization procedure. Subsequently, the right femoral head was localized under x-ray and the groin access site was anesthetized with subcutaneous injection of 2% lidocaine. A marielle incision was made and utilizing micropuncture technique the right common femoral artery was accessed. A 6 [place] 80 cm shuttle sheath was placed into the abdominal aorta over the 038 Glidewire using Seldinger technique. The sheath was secured in place with Steri-Strips, it was back bled and flushed and connected to a continuous heparinized pressurized bag of saline at a slow constant drip rate. Subsequently, a 5 [place] Berenstein catheter was advanced through the shuttle sheath under fluoroscopic guidance over the 038 glide wire for selective catheterization of the left common carotid artery from the aortic arch. The wire was removed, the catheter was flushed, and flow was checked. Roadmap views of the left common carotid artery were obtained demonstrating no evidence of hemodynamically significant stenosis or significant tortuosity. Under roadmap views, the left internal carotid artery was selectively catheterized over the 038 Glidewire with the Berenstein catheter, th e shuttle sheath was advanced into the proximal cervical left internal carotid artery. The Berenstein catheter and wire were removed and the shuttle sheath was back bled and flushed remove all air and debris. The patient was administered a weight based bolus of intravenous heparin with confirmation of therapeutic ACT against baseline ACT of (measured before any intravenous heparin was given) with ACT at least 2 times greater than baseline prior to introduction of intracranial catheters or wires. After adequate endovascular access was obtained, working views for planned aneurysm embolization were obtained, and repeat ACT confirmed therapeutic anticoagulation, a Amanda 5 [place] 125 cm distal access catheter was navigated through a benchmark guide catheter which was navigated through the shuttle sheath for intracranial catheter access. The shuttle sheath was in the cervical left internal carotid artery, the benchmark guide catheter was at the patricia cavernous junction of the left carotid artery, and the Amanda guide catheter was advanced to the paraclinoid internal carotid artery. Multiple control and grams were performed between steps demonstrating no evidence of contrast extravasation or thromboembolic complication. Under magnified working views, a via 21 microcatheter was advanced through the coaxial catheter system over a Synchro 2 standard microwire for selective catheterization of the proxim al portion of the dome of the middle screw artery aneurysm. Repeat roadmap views were obtained after the microcatheter was positioned appropriately, and the Amanda guiding catheter was advanced into the M1 segment. Superselective left middle cerebral artery angiography was performed demonstrating no evidence of contrast extravasation or thromboembolic complication, with additional control angiograms performed from this catheter position through the Amanda guiding catheter. A web SL 7 x 3 mm embolization device was carefully prepared and advanced through the microcatheter and a tip to tip configuration. Repeat roadmap views were obtained. The web device was then carefully deployed into the aneurysm in standard fashion. Multiple control angiograms were performed between steps demonstrating no evidence of contrast extravasation or thromboembolic complication. After satisfactory positioning was obtained, the web device was carefully detached under live fluoroscopy. Detachment of the device resulted in slight proximal migration with suspected compromise of the left middle cerebral artery inferior division lumen.Subsequently, the catheter system was carefully pulled back to the distal cervical segment of the left internal carotid artery where repeat rotational angiogram was performed for careful evaluation of the suspected left middle cerebral artery inferior division lumen compromise. Rotational angiogram was performed from the cervical left internal carotid artery catheter position. Rotational views were sent to a separate workstation for reprocessing and three-dimensional rendering. Careful examination of the three-dimensional reconstructed angiogram confirms significant luminal compromise with high-grade stenosis of the left middle cerebral artery inferior division related to the web embolization device. Decision was made to load the patient with intravenous anger lower for additional antiplatelet medication and in preparation for possible stenting. Subsequently, decision was made to proceed with intracranial stent placement to protect the inferior division lumen. The coaxial catheter system including the benchmark and Amanda guide catheter were replaced under magnified roadmap views into the intracranial circulation, as previously positioned. They were advanced over an [place] SL 10 straight microcatheter and synchro 2 soft microwire. Under magnified roadmap views, the microcatheter and microwire were carefully advanced beyond the web embolization device and aneurysm into the left middle cerebral artery inferior division. Multiple control angiograms were performed between steps demonstrating no evidence of contrast extravasation or thromboembolic complication. On control angiography prior to stenting, gradual thrombus is noted extending beyond the web embolization device into the middle cerebral artery inferior division lumen. However, flow through this vessel is maintained. Subsequently, a Neuroform [place] 4 mm x 21 mm intracranial stent/aneurysm neck reconstruction device was ca refully prepared and deployed through the microcatheter, spanning the aneurysm neck and reconstructing the left middle cerebral artery inferior division lumen, in standard fashion without difficulty. The stent was deployed from the inferior division, distal to the aneurysm, into the M1 segment, proximal to the aneurysm and bifurcation.Control angiography was performed after stent deployment demonstrating significantly improved lumen of the left middle cerebral artery inferior division with preserved flow. There is no evidence of contrast extravasation or thromboembolic complication. The aneurysm is completely occluded with small residual neck on the superior aspect of the aneurysm only. Subsequently, additional control angiography was performed in demagnified Belinda and lateral views with the coaxial catheter system pulled out of the intracranial circulation, before and after partial reversal of heparin with protamine. Control angiograms demonstrate no evidence of contrast extravasation, thromboembolic complication, missing branches, or mass effect. There is no evidence of stent or vascular thrombosis after protamine administration.Finally, the catheter system was pulled down to the common carotid artery where left common carotid artery angiography was performed in LAD oh and lateral views over the neck and head demonstrating no evidence of arterial dissection or access complication. The system was then pulled down to the pelvis where right common femoral artery angiography was performed in ROGERS view. Right common femoral artery angiography demonstrates no evidence of hemodynamically significant stenosis or access complication. Subsequently, after secondary review of all images, the shuttle sheath was exchanged for a 6/7 bhutanese Mynxgrip closure device, and hemostasis was obtained. The radial artery site was closed with a TR band after removal of the radial access sheath. Hemostasis was achieved.The patient was extubated uneventfully and remained neurologically at baseline with a stable vascular examination of the right upper and lower extremity post procedure. I was present for, and performed the entire procedure. There were no apparent complications. 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 with stent reconstruction of the left middle cerebral artery bifurcation.This document has been electronically signed by Dieter Gibson MD on 03/31/2020 10:03 AM Name Value Range Interpretation Code Description Data Samantha rce(s) Supporting Document(s) ID Date Data Source [id number] 03/18/2020 06:44:47 PM EDT [facility] Name Value Range Interpretation Code Description Data Samantha rce(s) Supporting Document(s) Discharge Summary [facility] VMAGKm5kZfFGOvGc11/OCBydBCZuo2WxBTdhUVb3DVbsLHYaJ6UzITQ3lN6mDUG0EKxPAeBxBuSrUJF5 lbm [file] AgICAgICAgICAgICAgICAgICAgICAgICAgICAgICAgICAgICAgICAgICAgICAgICAgICAgICAgICAgIC AgICAgICAgICAgICAgICAgICAgICAgICAgICAgICAgDQogICAgICAgICAgICAgICAgICAgICAgICAgIC AgICAgICAgICAgICAgICAgICAgICAgICAgICAgICAg ICAgICAgICAgICAgICAgICAgICAgICAgICAgICAgICAgICAgICAgICAgDQogICAgICAgICAgICAgICAg ICAgICAgICAgICAgICAgICAgICAgICAgICAgICAgICAgICAgICAgICAgICAgICAgICAgICAgICAgICAg ICAgICAgICAgICAgICAgICAgICAgICAgDQogICAgIC AgICAgICAgICAgICAgICAgICAgICAgICAgICAgICAgICAgICAgICAgICAgICAgICAgICAgICAgICAgIC AgICAgICAgICAgICAgICAgICAgICAgICAgICAgICAgICAgDQogICAgICAgICAgICAgICAgICAgICAgIC AgICAgICAgICAgICAgICAgICAgICAgICAgICAgICAg ICAgICAgICAgICAgICAgICAgICAgICAgICAgICAgICAgICAgICAgICAgICAgDQogICAgICAgICAgICAg ICAgICAgICAgICAgICAgICAgICAgICAgICAgICAgICAgICAgICAgICAgICAgICAgICAgICAgICAgICAg ICAgICAgICAgICAgICAgICAgICAgICAgICAgDQogIC AgICAgICAgICAgICAgICAgICAgICAgICAgICAgICAgICAgICAgICAgICAgICAgICAgICAgICAgICAgIC AgICAgICAgICAgICAgICAgICAgICAgICAgICAgICAgICAgICAgDQogICAgICAgICAgICAgICAgICAgIC AgICAgICAgICAgICAgICAgICAgICAgICAgICAgICAg ICAgICAgICAgICAgICAgICAgICAgICAgICAgICAgICAgICAgICAgICAgICAgICAgDQogICAgICAgICAg ICAgICAgICAgICAgICAgICAgICAgICAgICAgICAgICAgICAgICAgICAgICAgICAgICAgICAgICAgICAg ICAgICAgICAgICAgICAgICAgICAgICAgICAgICAgDQ ogICAgICAgICAgICAgICAgICAgICAgICAgICAgICAgICAgICAgICAgICAgICAgICAgICAgICAgICAgIC HvUPBlHVPjHLMjRKSvIYGvWPLqCECgZJIuDEJjKJKyQOScBSMuGFRhRQc0O8rtJMOrMCBxTU7rNMk4Xm 8+JWiEGeHuCVG4hnKkgB9LTH3wo9FsTBvgDNFon4Rc RFf3HB7KJEQjYGfjLA2GKVkohy4FFNYeNEZzcAWKg7feSyYeWFZ7DCFtAmenIX1IRIMdV0lvrwDwGAAg CLEAEBroOXRMQAufORMEFZPbDQHxPwUfPlMdYGTxXC0TMDEjT901wuMhUM0YPi4JKlMeAO0pcd8QHlBf UZZtUlmQOsz5NGfyRA2IdQHsgSPrCiLmSFLKXoKcB1 qco8TvTcWbWLTPWZefNL1Ob1FdiNIlRNv+Ir2PRT9gq6RxVQomUbRyVY5wdr0CNPzYJiRfI2KqdZiwPQ Slv4HrUIPlOQJLiY6cTIR7DOA4CWOhmWXrQPMoIRguoK00pByrATYjOACyVB6qEy5yFTUfTHAiRzJ4OP RNDJ5HPWYbGVKgwQIlWWOoSJREDX5FOMumSXT2UPKe qmMgaSKdYLfhTZ8WOPGwqhSqOnZdSBODMBd+El2XKP6rd2SuPBtiFgAyNC5bvx0KGEiSPiVuL7O9iLRc F9O2AVldVn7NPYPwIUUnKqDgKYILKQabRY2QQT9wzeS8TF0GgDVdESIrSVUydGOwEFf9B42cqPFvKSxd VA2GESD+Lincoln+Hc6QXFQfTTLwKKQmYeYpZPFPYvUgX1 OsR2JYr6SyT6QbBD15fNwmboQhZBunSY9TYE9yZYBaKFMOIC5MuEUcrO1pfpKgXOTuSNFMLnImQ25yhM BdVGGqAWT6GNYtQp5DYDXkL8JuymEjsYinqiZmUBGxMSQTDB3WHLpgrkEljFMguBwjWJ47hUneGW0BVu 4ZOjBsPG1prc4ZbLFdTq4KINHgAM9AMUFnARBySNBk UCD7KIKtIqPgXFviPHMvCTHeDGA5ZTNfKOGlFP0ECvIrFFCpGbX4MKOlOHVrHIFcuw6THBPrOKXpPdGl CQUmQKFkERZhBKxfIPDbARNiRSF0RXOfVDGtXX9XZiBxXIGbKDQ2SriaSGEfTFSgka8PIFDuZHIhVCB5 PECwFNAkSJOfFDjxZPMsTYO4Nqv3TLWjLLFiPT5HQt PsDIEaQEO7XKokBWLxZPUfgn6FIWThAXYdFIVuBYKrOSDxRSBvJUrqZGFyYAToTFV8THHcLJJsHJ0BKm VqZELjYSK0SCioYVCsGQOthn4EEDMeALEfKRWfVnHiUNBaQBEfVDwpZPMfQTD3DhX6LDWiZYTxJR5RNv IxNQLqJAd4EoQqIHQuMTUfdh2RITRqLVFfSJE4BjIw KKXiHWNiJHfjYEKiXLM1Qkz5TBLoGNQlCF8IFmDmNYDvJPw4LdFdOKWuIETanc5MKRXeKXBvRNumUHKg XRWzSCPrFVagKTJdSPDhYXCyKFSeNXJwTU1NSeDkUBPiXxNvDbIbFCQgFZUxmx1JYSKsSHBdRWG2EKUi YKMwZUDoLKgqQDByHZMpIxo4KVAkAKHnYH3KIsHsTW SbZbM2JbHzTTMpFPNvrt7CFLPiXJOhJWq1BIKdJRUiNOLwFAruSRLdSKNkVJK0GRIkUMVqGI3MAkUuBK KmDaI9JZcsIQXtKGPfvo0JTGJjSKNyKjU1HuNuAZAqHBIkQJd9zxCbbPSjVQq0KT3SA3CndwLtVghTBw 7Bu398IEZ0PHVoVx2SU0wlYz2gSAOuGMOEZt6BPJm4 IOckXcuxIiO8ZSHyAQK2LRLxBtNpOMC1D4G7EQViJnR+TQt1EGVgWQCwFMpjW7W2RljwQHGlYWCfORb4 AXGqEUS3Xq7oJLDZLh9+IDdapUGuvWebYTLDTpOyDOI5VCwaNFFOBv5C ID Date Data Source [id number] 03/16/2020 12:59:40 PM EDT [facility] Name Value Range Interpretation Code Description Data Samantha rce(s) Supporting Document(s) Platelet aggregation ADP induced [Units/volume] in Platelet rich plasma 22 PRU <208 [facility] (NOTE)<208 PRU Therapeutic range fo r P2Y12 [id number] PRU Low response to P2Y12 inhibitors ID Date Data Source [id number] 03/16/2020 06:30:18 AM [facility] Name Value Range Interpretation Code Description Data Samantha rce(s) Supporting Document(s) Leukocytes [#/volume] in Blood by Automated count 11.4 10*3/uL 4-10 H [facility] Erythrocytes [#/volume] in Blood by Automated count 3.51 10*6/uL 4.1- 5.3 L [facility] Hemoglobin [Mass/volume] in Blood 11.5 g/dL 11.5-15.5 [facility] Hematocrit [Volume Fraction] of Blood by Automated count 33.8 % 3 6-45 L [facility] Erythrocyte mean corpuscular volume [Entitic volume] by Auto mated count 96.2 fL 80-96 H [facility] Erythrocyte mean corpuscular hemoglobin [Entitic mass] by Automated count 32.9 pg 27-33 [facility] Erythrocyte mean corpuscular hemoglobin concentration [Mass/volume] by Automated count 34.2 g/dL 32.0-36.0 [facility] [Ratio] by Automated count 13.0 % 11.5-14.5 [facility] Platelets [#/volume] in Blood by Automated count 275 10*3/uL 150-400 [facility] ID Date Data Source [id number] 03/16/2020 06:49:01 AM EDT [facility] Name Value Range Interpretation Code Description Data Samantha rce(s) Supporting Document(s) Bicarbonate [Moles/volume] in Serum 22 mmol/L 22-29 [facility] Chloride [Moles/volume] in Serum or Plasma 110 mmol/L 98-107 H [facility] Creatinine [Mass/volume] in Serum or Plasma 0.67 mg/dL 0.50-0.90 [facility] Glucose [Mass/volume] in Serum or Plasma 96 mg/dL 70-140 [facility] Potassium [Moles/volume] in Serum or Plasma 3.8 mmol/L 3.4-5.1 [facility] Hemolyzed Sodium [Moles/volume] in Serum or Plasma 143 mmol/L 136-145 [facility] Urea nitrogen [Mass/volume] in Serum or Plasma 9 mg/dL 6-20 [facility] Anion gap 3 in Serum or Plasma 11 mmol/L 8-15 [facility] Osmolality of Serum or Plasma by calculation 295 mosm/kg 275-300 [facility] Creatinine/Urea nitrogen [Mass Ratio] in Serum or Plasma 13 [facility] Calcium [Mass/volume] in Serum or Plasma 8.7 mg/dL 8.6-10.0 [facility] Glomerular filtration rate/1.73 sq M pre dicted among non-blacks [Volume Rate/Area] in Serum or Plasma by Creatinine-based formula (MDRD) >6 0 [facility] Glomerular filtration rate/1.73 sq M pre dicted among blacks [Volume Rate/Area] in Serum or Plasma by Creatinine-based formula (MDRD) >60 [facility] ID Date Data Source [id number] 03/15/2020 06:40:30 AM [facility] Name Value Range Interpretation Code Description Data Samantha rce(s) Supporting Document(s) Leukocytes [#/volume] in Blood by Automated count 10.4 10*3/uL 4-10 H [facility] Erythrocytes [#/volume] in Blood by Automated count 3.15 10*6/uL 4.1- 5.3 L [facility] Hemoglobin [Mass/volume] in Blood 10.4 g/dL 11.5-15.5 L [facility] Hematocrit [Volume Fraction] of Blood by Automated count 30.3 % 3 6-45 L [facility] Erythrocyte mean corpuscular volume [Entitic volume] by Auto mated count 96.0 fL 80-96 [facility] Erythrocyte mean corpuscular hemoglobin [Entitic mass] by Automated count 32.8 pg 27-33 [facility] Erythrocyte mean corpuscular hemoglobin concentration [Mass/volume] by Automated count 34.2 g/dL 32.0-36.0 [facility] width [Ratio] by Automated count 13.1 % 11.5-14.5 [facility] Platelets [#/volume] in Blood by Automated count 270 10*3/uL 150-400 [facility] ID Date Data Source [id number] 03/15/2020 06:58:24 AM EDT [facility] Name Value Range Interpretation Code Description Data Samantha rce(s) Supporting Document(s) Bicarbonate [Moles/volume] in Serum 22 mmol/L 22-29 [facility] Chloride [Moles/volume] in Serum or Plasma 110 mmol/L 98-107 H [facility] Creatinine [Mass/volume] in Serum or Plasma 0.61 mg/dL 0.50-0.90 [facility] Glucose [Mass/volume] in Serum or Plasma 102 mg/dL 70-140 [facility] Potassium [Moles/volume] in Serum or Plasma 3.1 mmol/L 3.4-5.1 L [facility] Sodium [Moles/volume] in Serum or Plasma 141 mmol/L 136-145 [facility] Urea nitrogen [Mass/volume] in Serum or Plasma 7 mg/dL 6-20 [facility] Anion gap 3 in Serum or Plasma 9 mmol/L 8-15 [facility] Osmolality of Serum or Plasma by calculation 290 mosm/kg 275-300 [facility] Creatinine/Urea nitrogen [Mass Ratio] in Serum or Plasma 11 [facility] Calcium [Mass/volume] in Serum or Plasma 7.9 mg/dL 8.6-10.0 L [facility] Glomerular filtration rate/1.73 sq M pre dicted among non-blacks [Volume Rate/Area] in Serum or Plasma by Creatinine-based formula (MDRD) >6 0 [facility] Glomerular filtration rate/1.73 sq M pre dicted among blacks [Volume Rate/Area] in Serum or Plasma by Creatinine-based formula (MDRD) >60 [facility] ID Date Data Source [id number] 03/14/2020 04:58:01 PM EDT [facility] Name Value Range Interpretation Code Description Data Samantha rce(s) Supporting Document(s) Leukocytes [#/volume] in Blood by Automated count 8.6 10*3/uL 4-10 [facility] Erythrocytes [#/volume] in Blood by Automated count 3.30 10*6/uL 4.1- 5.3 L [facility] Hemoglobin [Mass/volume] in Blood 10.5 g/dL 11.5-15.5 [facility] Hematocrit [Volume Fraction] of Blood by Automated count 32.2 % 3 6-45 L [facility] Erythrocyte mean corpuscular volume [Entitic volume] by Auto mated count 97.4 fL 80-96 H [facility] Erythrocyte mean corpuscular hemoglobin [Entitic mass] by Automated count 31.9 pg 27-33 [facility] Erythrocyte mean corpuscular hemoglobin concentration [Mass/volume] by Automated count 32.8 g/dL 32.0-36.0 [facility] width [Ratio] by Automated count 12.9 % 11.5-14.5 [facility] Platelets [#/volume] in Blood by Automated count 280 10*3/uL 150-400 [facility] Differential cell count method - Blood [facility] Neutrophils/100 leukocytes in Blood by Automated count 56 % [facility] Lymphocytes/100 leukocytes in Blood by Automated count 37 % [facility] Monocytes/100 leukocytes in Blood by Automated count 5 % [facility] Eosinophils/100 leukocytes in Blood by Automated count 1 % [facility] Basophils/100 leukocytes in Blood by Automated count 1 % [facility] Neutrophils [#/volume] in Blood by Automated count 4.79 10*3/uL 1.8-7 .0 [facility] Lymphocytes [#/volume] in Blood by Automated count 3.19 10*3/uL 1.2-4 .0 [facility] Monocytes [#/volume] in Blood by Automated count 0.44 10*3/uL 0-0.8 [facility] Eosinophils [#/volume] in Blood by Automated count 0.11 10*3/uL 0-0.5 [facility] Basophils [#/volume] in Blood by Automated count 0.04 10*3/uL 0-0.2 [facility] Nucleated erythrocytes/100 leukocytes [Ratio] in Blood by Automated count 0 /100{WBCs} 0-0 [facility] ID Date Data Source [id number] [facility] Interpretation Code Description Data Samantha rce(s) Supporting Document(s) Bicarbonate [Moles/volume] in Serum 20 mmol/L 22-29 L [facility] Chloride [Moles/volume] in Serum or Plasma 111 mmol/L 98-107 H [facility] Creatinine [Mass/volume] in Serum or Plasma 0.63 mg/dL 0.50-0.90 [facility] Glucose [Mass/volume] in Serum or Plasma 111 mg/dL 70-140 [facility] Potassium [Moles/volume] in Serum or Plasma 3.7 mmol/L 3.4-5.1 [facility] Sodium [Moles/volume] in Serum or Plasma 141 mmol/L 136-145 [facility] Urea nitrogen [Mass/volume] in Serum or Plasma 11 mg/dL 6-20 [facility] Anion gap 3 in Serum or Plasma 10 mmol/L 8-15 [facility] Osmolality of Serum or Plasma by calculation 292 mosm/kg 275-300 [facility] Creatinine/Urea nitrogen [Mass Ratio] in Serum or Plasma 17 [facility] Calcium [Mass/volume] in Serum or Plasma 7.4 mg/dL 8.6-10.0 L [facility] Glomerular filtration rate/1.73 sq M pre dicted among non-blacks [Volume Rate/Area] in Serum or Plasma by Creatinine-based formula (MDRD) >6 0 [facility] Glomerular filtration rate/1.73 sq M pre dicted among blacks [Volume Rate/Area] in Serum or Plasma by Creatinine-based formula (MDRD) >60 [facility] ID Date Data Source [id number] 03/16/2020 11:07:13 AM [facility] Name Value Range Interpretation Code Description Data Samantha rce(s) Supporting Document(s) Kaolin activated time [Units/volume] in Blood [address] [facility] ID Date Data Source [id number] 03/16/2020 11:06:38 AM EDT [facility] Value Range Interpretation Code Description Data Samantha rce(s) Supporting Document(s) Kaolin activated time [Units/volume] in Blood 241 [facility] ID Date Data Source [id number] 03/16/2020 11:07:13 AM EDT [facility] Value Range Interpretation Code Description Data Samantha rce(s) Supporting Document(s) Kaolin activated time [Units/volume] in Blood [address] [facility] ID Date Data Source [id number] 03/16/2020 11:07:13 AM EDT [facility] Value Range Interpretation Code Description Data Samantha rce(s) Supporting Document(s) Kaolin activated time [Units/volume] in Blood 224 [facility] ID Date Data Source [id number] 03/16/2020 11:07:13 AM EDT [facility] Value Range Interpretation Code Description Data Samantha rce(s) Supporting Document(s) Kaolin activated time [Units/volume] in Blood 213 [facility] ID Date Data Source [id number] 03/16/2020 11:07:13 AM EDT [facility] Value Range Interpretation Code Description Data Samantha rce(s) Supporting Document(s) Kaolin activated time [Units/volume] in Blood 131 [facility] ID Date Data Source [id number] 03/10/2020 10:25:48 AM EDT [facility] Value Range Interpretation Code Description Data Samantha rce(s) Supporting Document(s) Progress Note [facility] EIAVOb3qGmDSMeCu39/GFJmoUXDjg8QqUAtcQYk0CJynIGEbH0JbKTU3sL6zZTY1FHoUJjIzRdUbRKI3 lbm [file] +5Bwq9+y6VofMS7V/Marin+jier5mhDKEcfmw0beYRZaLC7az+5+sRd1tASRwygoE0b4il3XTVTr0Z/potato pancake frier [file] Pen0BNOzBzn3FbD+VU4rACn+Ui3Dm3OktaM2ejOnCSfxKDn7DV5VYTHSQ6YIUa== ID Date Data Source [id number] 03/11/2020 11:50:25 AM [facility] Cmnt XXX-Imp : NoneMicroorganism XXX Cult : 2019 nCoV Real-Time RT-PCR: NOT DETECTEDThis test method was designed to detect the causative agent of COVID-19. The Dept. of Pathology [facility] has Emergency Use Authorization (EUA) from the FDA to peform this test to allow for rapid response during a declared public health emergency.Initial validation was performed by the Centers for Disease Control and Prevention (CDC) and additionally validated by the Dept. of Pathology [facility]. Negative results do not preclude SARS-CoV-2 infection and should not be used as the sole basis for patient management decisions.Additional information is available on the following FDA websites for health care providers and patients. https://www.fda.gov/media/285691/download, ht tps://www.fda.gov/media/504487/download. Name Value Range Interpretation Code Description Data Samantha rce(s) Supporting Document(s) ID Date Data Source [id number] 03/10/2020 10:25:00 AM [facility] Cmnt XXX-Imp : NoneMicroorganism XXX Cult : 2019 nCoV Real-Time RT-PCR: NOT DETECTEDThis test method was designed to detect the causative agent of COVID-19. The Dept. of Pathology [facility] has Emergency Use Authorization (EUA) from the FDA to peform this test to allow for rapid response during a declared public health emergency.Initial validation was performed by the Centers for Disease Control and Prevention (CDC) and additionally validated by the Dept. of Pathology [facility]. Negative results do not preclude SARS-CoV-2 infection and should not be used as the sole basis for patient management decisions.Additional information is available on the following FDA websites for health care providers and patients. https://www.fda.gov/media/456776/download, ht tps://www.fda.gov/media/903021/download. Name Value Range Interpretation Code Description Data Samantha rce(s) Supporting Document(s) Microorganism identified in Unspecified specimen by [facility] This lab was ordered by [facility] and reported by [facility]. ID Date Data Source [id number] 03/10/2020 01:05:24 PM [facility] Name Value Range Interpretation Code Description Data Samantha rce(s) Supporting Document(s) Leukocytes [#/volume] in Blood by Automated count 9.8 10*3/uL 4-10 [facility] Erythrocytes [#/volume] in Blood by Automated count 4.03 10*6/uL 4.1- 5.3 L [facility] Hemoglobin [Mass/volume] in Blood 13.1 g/dL 11.5-15.5 [facility] Hematocrit [Volume Fraction] of Blood by Automated count 39.3 % 3 6-45 [facility] Erythrocyte mean corpuscular volume [Entitic volume] by Auto mated count 97.5 fL 80-96 H [facility] Erythrocyte mean corpuscular hemoglobin [Entitic mass] by Automated count 32.6 pg 27-33 [facility] Erythrocyte mean corpuscular hemoglobin concentration [Mass/volume] by Automated count 33.4 g/dL 32.0-36.0 [facility] width [Ratio] by Automated count 13.3 % 11.5-14.5 [facility] Platelets [#/volume] in Blood by Automated count 347 10*3/uL 150-400 [facility] Differential cell count method - Blood [facility] Neutrophils/100 leukocytes in Blood by Automated count 45 % [facility] Lymphocytes/100 leukocytes in Blood by Automated count 46 % [facility] Monocytes/100 leukocytes in Blood by Automated count 6 % [facility] Eosinophils/100 leukocytes in Blood by Automated count 2 % [facility] Basophils/100 leukocytes in Blood by Automated count 1 % [facility] Neutrophils [#/volume] in Blood by Automated count 4.41 10*3/uL 1.8-7 .0 [facility] Lymphocytes [#/volume] in Blood by Automated count 4.51 10*3/uL 1.2-4 .0 H [facility] Monocytes [#/volume] in Blood by Automated count 0.59 10*3/uL 0-0.8 [facility] Eosinophils [#/volume] in Blood by Automated count 0.21 10*3/uL 0-0.5 [facility] Basophils [#/volume] in Blood by Automated count 0.07 10*3/uL 0-0.2 [facility] Nucleated erythrocytes/100 leukocytes [Ratio] in Blood by Automated count 0 /100{WBCs} 0-0 [facility] ID Date Data Source [id number] 03/10/2020 02:42:26 PM EDT [facility] Name Value Range Interpretation Code Description Data Samantha rce(s) Supporting Document(s) Bicarbonate [Moles/volume] in Serum 22 mmol/L 22-29 [facility] Chloride [Moles/volume] in Serum or Plasma 106 mmol/L 98-107 [facility] Creatinine [Mass/volume] in Serum or Plasma 0.73 mg/dL 0.50-0.90 [facility] Glucose [Mass/volume] in Serum or Plasma 93 mg/dL 70-140 [facility] Potassium [Moles/volume] in Serum or Plasma 4.4 mmol/L 3.4-5.1 [facility] Sodium [Moles/volume] in Serum or Plasma 142 mmol/L 136-145 [facility] Urea nitrogen [Mass/volume] in Serum or Plasma 13 mg/dL 6-20 [facility] Anion gap 3 in Serum or Plasma 14 mmol/L 8-15 [facility] Osmolality of Serum or Plasma by calculation 293 mosm/kg 275-300 [facility] Creatinine/Urea nitrogen [Mass Ratio] in Serum or Plasma 17 [facility] Calcium [Mass/volume] in Serum or Plasma 9.3 mg/dL 8.6-10.0 [facility] Glomerular filtration rate/1.73 sq M pre dicted among non-blacks [Volume Rate/Area] in Serum or Plasma by Creatinine-based formula (MDRD) >6 0 [facility] Glomerular filtration rate/1.73 sq M pre dicted among blacks [Volume Rate/Area] in Serum or Plasma by Creatinine-based formula (MDRD) >60 [facility] ID Date Data Source [id number] 03/09/2020 01:18:07 PM EDT [facility] Measurements & CalculationsHeight: 61 inches (5 ft. 1 in.) 154.94 cm Weight: 131 pounds 2 oz. 59.60 kg Body Mass Index (BMI): 24.87BMI Interpretation: Healthy WeightBody Surface Area (BSA): 1.58Weight Management Education Done (Nutrition/Physical Activity)Vital SignsTemperature: 98.7F oral Pulse Rate: 80 beats/minuteRespiratory Rate: 16 respirations/minuteBlood Pressure: 117/88 left arm sitting automaticO2 Saturation: 96% room airVital Signs performed by: Luis Carlos Rivera LPN, March 09, 2020 1:27 PMInitial Intake Information From: patientRoom #: 13Infectious Disease / Travel ScreeningRecent travel for you or any close contacts? NoHave you had any close contact with anyone diagnosed with or under investigation for COVID-19 (coronavirus)? NoFever? NoRespiratory symptoms: cough, cold, congestion, shortness of breath, difficulty breathing? NoLoss of smell? NoLoss of taste? NoSmoking, Tobacco, Vaping or Smoke Exposure StatusSmoke Status: former smokerTobacco Use: NoDo you vape? NoPassive Smoke Exposure: NoMenstrual HistoryAny possibility of ? NoComments: total hysterectomy Healthcare HistorySince your last office visit...Have you been admitted to the hospital? NoHave you been to an emergency room (ER) or urgent care clinic? NoHave you seen another healthcare provider? Yes - community clinic, [email or web address] Have you seen a dentist? Yes - NOCORate Your HealthIn general, would you say your health is? GoodPain AssessmentAre you currently having any pain wh ich... You would like your provider to address? No Affects your activity level? NoDepression Screening - PHQ-2Over the last two weeks, have you... Had little interest or pleasure in doing things? Not at all Been feeling down, depressed, or hopeless? Not at all PHQ-2 Score: 0Anxiety Screening - ROBERT-2Over the last two weeks, have you been... Feeling nervous, anxious, or on edge? Not at all Unable to stop or control worrying? Not at all ROBERT-2 Score: 0Food InsecurityWithin the past year...Did you worry whether your food would run out before you got money to buy more? NoWas there a time when the food you bought didn't last and you didn't have money to get more? NoPatient Learning & Communication Needs Preferred learning style: by experiencePossible barriers: nonePatient's Language used in visit: YesLanguage: north korean Screening, Brief Intervention, & Referral to Treatment (SBIRT)Pre-Screening Questions How many times have you have 4 or more drinks in a day? 0How many times have you used an illegal drug or used a prescription medication for a non-medical reason? 0Performed by: Luis Carlos Rivera LPN, March 09, 2020 1:23 PMPatient History Surgical History:polyps removedhemmoroidsHysterectomy total- 2014Cesarean section X2 Social/Personal History: Chief ComplaintMed clearance for surgery RM 13 History of Present Illness (HPI)59 yo female PT here today for medical clearance for bra in surgery. PT denies pain at this time. Pt states she is taking all medications with no side effects. Pt states have tolerated General Anesthesia with no adverse effect. pt denies chest pain , sob or dizziness at this time. Pt states at times feels "off balanced"Pt lui abnormal bleeding. Pt requesting refill of her gabapentin today. Pt denies other needs at this time. HPI performed by: Madelyn COLLINS, March 09, 2020 1:49 PMTransitions of Care InboundProblem ReviewProblem List was reviewed and/or updated during this visit.Medication Reconciliation & ReviewMedication List was reviewed and/or updated during this visit, including review of any qbbx-kju-lwwnkud medications, herbal therapies, and/or supplements.Allergy ReviewAllergy List was reviewed and/or updated during this visit.Adult Preventive CareProvider Calculated and Reviewed all Clinical Protocols for patient today. Labs/Meds/Other Counseling-Nutrition and Physical Activity:BMI Interpretation: Healthy Weight (03/09/2020) Counseling: Done (03/09/2020) Physical Activity: Done (03/09/2020)Cancer Screening Mammogram Reviewed: Previous Comments: floridalma order (10/14/2019)Today's Comments: need referral Review of Systems General: Denies loss of appetite, chills, dizziness, fatigue, fever, continued fever, headache, feeling ill, sweats, night sweats, sleep disturbances, weight loss. Pt sytes off balanced at timesEyes: Denies blurring of vision, double vision, irritation, discharge, vision loss, eye pain, eye swelling, droopy eyelid, sensitivity to light, redness, itching. Ears/Nose/Throat: Denies earache, ear discharge, ringing in ears, decreased hearing, nasal congestion, nosebleeds, runny nose, sore throat, hoarseness, difficulty swallowing, dry mouth, tooth pain, bleeding gums, swollen glands. Cardiovascular: Denies chest pain, palpitations, feeling faint, trouble breathing w/exertion, SOB upon lying down, SOB at night, peripheral edema, elevated blood pressure, decreased heart rate. Respiratory: Denies cough, difficulty breathing, shortness of breath, excessive sputum, coughing up blood, wheezing, chest pain. Breast: Denies discoloration, tenderness, breast changes, breast lump, nipple discharge. Gastrointestinal: Denies nausea, vomiting, bleeding, burning, itching, irritation, cramps, diarrhea, constipation. Genitourinary: Denies urinary incontinence, pain with urination, burning with urination, urinary frequency, urinary hesitancy, urinary urgency, urinary urgency at night, incomplete emptying, blood in urine. Musculoskeletal: Denies back pain, joint pain, leg pain, other pain-see comments, joint swelling, body aches, muscle aches, muscle cramps, muscle weakness, stiffness, recent injury. Neurologic: Complains of vertigo. Denies muscle impairment, weakness, numbness/tingling, seizures, slurred speech, feeling faint, tremors, paralysis on one side, paralysis on both sides. pt states off balanced at timesPsychiatric: Denies depression, anxiety, memory loss, mental disturbance, suicidal ideation, homicidal ideation, hallucinations, paranoia, feeling stressed, hearing voices. Endocrine: Denies cold intolerance, heat intolerance, excessive thirst, excessive hunger, excessive urination, weight loss, weight gain. Heme/Lymphatic: Denies abnormal bruising, bleeding, enlarged lymph nodes. Physical ExamGeneral Appearance: well nourished, well hydrated, no acute distressEyes, External: conjunctivae and lids normal, EOMIRespiratory, Auscultation: clear to auscultation bilaterally; no rales, rhonchi, or wheezesRespiratory, Effort: no intercostal retractions or use of accessory muscl esCardiovascular, Auscultation: S1, S2 audible; no murmur, rub, or gallop; RRRPeripheral Circulation: no clubbing, cyanosis, edema, or varicositiesAbdomen: soft, non-tender, no masses, bowel sounds normalGait & Station: normalSkin, Inspection: no rashes, lesions, or ulcerationsOrientation: oriented to time, place, and personMood & Affect: no depression, anxiety, or agitationJudgment & Insight: intactCare Management Plan Transitions of CareInboundRate Your HealthIn general, would you say your health is? 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 Please hold OTC Nsaids such as Aleve or Ibuprofen prior 5 days prior to your surgery.Cerebral arterial aneurysm (ICD-437.3) (YOS64-B51.1) Assessment: Pt medically optimized to have Angiogram embolization done under general anesthesia with Dr Gibson 03/14/2020 with expected surgical risk.Assessed:Other cerebral infarction (MKE13-E95.89) Assessment: Instructions: You are medically optimized to have your upcoming procedure done under general Anesthesia with Dr Gibson at [facility] on March 14 2020. Please hold OTC Nsaids such as Aleve or Ibuprofen prior 5 days prior to your surgery.Pain of bilateral hands (LIE71-B69.641) Assessment: Instructions: gabapentin refilled for you today.Assessment not Saved Cerebral arterial aneurysm (ZXP67-M36.1): Comment OnlyPt medically optimized to have Angiogram embolization done under general anesthesia with Dr Gibson 03/14/2020 with expected surgical risk.VSS within normal limits today. Patient Instructions/Care Plan: Other cerebral infarction: You are medically optimized to have your upcoming procedure done under general Anesthesia with Dr Gibson at [facility] on March 14 2020. Please hold OTC Nsaids such as Aleve or Ibuprofen prior 5 days prior to your surgery.Cerebral arterial aneurysm: You are medically optimized to have your upcoming procedure done under general Anesthesia with Dr Gibson at [facility] on March 14 2020. Please hold OTC Nsaids such as Aleve or Ibuprofen prior 5 days prior to your surgery.Pain of bilateral hands: gabapentin refilled for you today. Plan developed in collaboration with patient and/or familyMedications:ONE A DAY MVICVS NICOTINE 4 MG MOUTH/THROAT GUMPRAZOSIN HCL 1 MG ORAL CAPSULEADULT ASPIRIN REGIMEN 81 MG ORAL TABLET DELAYED RELEASEATORVASTATIN CALCIUM 40 MG ORAL TABLETBUSPIRONE HCL 15 MG ORAL TABLETBUPROPION HCL ER (XL) 150 MG ORAL TABLET EXTENDED RELEASE 24 HOURGABAPENTIN 300 MG ORAL CAPSULEDRISDOL 76314 UNIT ORAL CAPSULEEPIPEN 2-SUMAYA 0.3 MG/0.3ML INJECTION SOLUTION AUTO-INJECTOREFFEXOR XR 75 MG ORAL CAPSULE EXTENDED RELEASE 24 HOURMedication Changes:Refilled:GABAPENTIN 300 MG ORAL CAPSULE-1 capsule by mouth every night at bedtime for pain Qty: 30[Capsule] Refills: 5 Method: ElectronicAllergies:PENICILLIN (Critical)* BEES (Critical)Orders:Adult - Ofc Vst, EST, Level III [CPT-28088] Follow-Up Return to clinic: as scheduled and as needed Clinical Visit Summary CompletedMedicat ions:GABAPENTIN 300 MG ORAL CAPSULE (GABAPENTIN) 1 capsule by mouth every night at bedtime for pain #30[Capsule] x 5 Route:ORAL Entered and Authorized by: Doris COLLINS Method used: Electronically to [facility] (retail) [address] [place] [address] Note to Pharmacy: Route: ORAL; RxID: [id number] signed by Doris COLLINS on 03/10/2020 at 10:40 AM Name Value Range Interpretation Code Description Data Samantha rce(s) Supporting Document(s) ID Date Data Source [id number] 02/11/2020 01:43:38 PM EDT [facility] IR ARTERIOGRAM CEREBRALFINAL RESULTInter preted by:Dieter Gibson, RIYAreoperative diagnosis: 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 Distal transradial diagnostic cerebral angiogram with ultrasound- guided access to right radial artery2. Selective left vertebral artery angiogram 3. Selective left internal carotid artery angiogram x34. Selective right internal carotid artery angiogram 5. Selective right vertebral artery angiogram6. Rotational/3-D angiogram left internal carotid artery7. Right subclavian artery angiogram and right radial artery angiogram8. 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 She underwent multimodality cerebrovascular imaging demonstrating thrombotic occlusion of left middle cerebral artery bifurcation aneurysm and the associated left inferior division branch of the middle cerebral artery. She did not require additional treatment and made a significant recovery. She underwent follow-up imaging demonstrating interval recanalization of the aneurysm and branch. She presents for catheter angiography for evaluation of endovascular treatment options.I had a long discussion with the patient and family at the bedside detailing the clinical and radiographic findings and options for additional diagnostic testing including transradial diagnostic cerebral angiography under moderate conscious sedation. We specifically discussed the risks of the procedure including but not limited to: Bleeding, infection, hand/wrist/arm hematoma, retroperitoneal hematoma, arterial dissection, injury to limb, loss of hand or arm, contrast dye induced renal failure including need for hemodialysis, allergic reaction, radiation exposure including hair loss and zhao, stroke, weakness, pain, numbness, paralysis, difficulty speaking and/or understanding speech, blindness, intracranial hemorrhage, coma, , need for additional procedures. The patient and family verbalized understanding and wi shed to proceed despite the risks. Informed consent was obtained and witnessed by nursing staff in the holding area.Procedure: The patient was brought directly to the angiography suite and laid supine on the angiography table. The bilateral groins and right anatomic snuffbox was prepped and draped in standard sterile fashion, and we underwent [facility] standard timeout for patient and site verification and communication among all staff. A Barbeau test was performed to confirm patency of the radiopalmar arch. Pulse oximetry was monitored on the right first or second digit throughout the procedure. The patient was administered Versed and fentanyl in small doses for comfort. The right radial pulse at the snuffbox was palpated, the artery was visualized under ultrasound, and the surrounding area was anesthetized with subcutaneous injection of 2% lidocaine mixed with nitroglycerin. The right radial artery was accessed using micropuncture technique under direct ultrasound visualization. A 5 [place] radial glide sheath was placed using Seldinger technique. The sheath was secured in place with Steri-Strips, it was back bled and flushed and connected to a continuous heparinized pressurized bag of saline at a slow constant drip rate. The patient was slowly administered 2.5 mg verapamil in 1 ml and 200 mcg nitroglycerin in 2 ml into the right radial artery through the radial glide sheath after dilution with arterial blood. Intravenous bolus of 3000 units of heparin was administered for thromboembolic prophylaxis. Subsequently, a 5 [place] Tate 2 glide catheter was advanced through the radial sheath under fluoroscopic guidance over the 035 glide wire to the level of the aortic arch where the wire was partially withdrawn and the secondary curve was formed in the descending aorta. The formed Tate 2 catheter was utilized for selective catheterization of the left subclavian artery where roadmap views were obtained. Roadmap views of the left subclavian artery demonstrate no evidence of hemodynamically significant stenosis and mild tortuosity of the proximal left vertebral artery. Under roadmap views, the left vertebral artery was selectively catheterized over the Glidewire. The wire was removed, the catheter was flushed, and flow was checked. Selective left vertebral artery angiography was performed in [place] and lateral views over the intracranial posterior circulation. Selective left vertebral artery angiography demonstrates no evidence of intracranial aneurysm, arteriovenous fistula, arteriovenous malformation, or thromboembolic complication. Capillary phase and venous phase imaging are unremarkable.The glide catheter was withdrawn from the left vertebral artery while injecting contrast. There is no evidence of contrast stasis, arterial dissection, or complication related to selective left vertebral artery angiography. The catheter was pulled back to the aortic arch and the left common carotid artery was selectively catheterized. Roadmap views of the left common carotid artery were obtained demonstrating no evidence of hemodynamically significant stenosis or tortuosity. Under roadmap views, the left internal carotid artery was selectively catheterized over the Glidewire. The wire was removed, the catheter was flushed, and flow was checked. Subsequently, selective left internal carotid artery angiography was performed in [place] and lateral views over the intracranial circulation followed by rotational angiography followed by 3 additional magnified views over the left middle cerebral artery bifurcation aneurysm. Rotational angiogram was performed from the cervical left internal carotid artery catheter position. Rotational views were sent to a separate workstation for reprocessing and three-dimensional rendering. Selective left internal carotid artery angiography in multiple views demonstrates a 5.2 x 4.9 x 7 mm left middle cerebral artery bifurcation aneurysm which originates predominantly from the inferior division branch including a 4 mm neck. The inferior division is widely patent. An additional 4 mm x 3.7 mm communicating segment left internal carotid artery aneurysm is also visualized. The remainder of the left internal carotid artery circulation is pre served.Subsequently, the catheter was withdrawn while injecting contrast. There is no evidence of contrast stasis, arterial dissection, or complication related to selective left internal carotid artery angiography. The catheter was pulled back to the aortic arch and the right common carotid artery was selected from the aortic arch. Roadmap views of the right common carotid artery were obtained demonstrating no evidence of hemodynamically significant stenosis or significant tortuosity. Under roadmap views, the right internal carotid artery was selectively catheterized over the Glidewire. The wire was removed, the catheter was flushed, and flow was checked. Subsequently, selective right internal carotid artery angiography was performed in [place] and lateral views of the intracranial circulation. Selective right internal carotid artery angiography demonstrates a 5.6 x 5.4 mm communicating segment right internal carotid artery aneurysm with a 3 mm neck and a small excrescence on the inferior aspect of the dome of the aneurysm. The remainder of the right internal carotid artery circulation is preserved.Subsequently, the catheter was withdrawn while injecting contrast. There is no evidence of contrast stasis, arterial dissection, or complication related to selective right internal carotid artery angiography. The catheter was pulled back to the right subclavian artery. Roadmap views were obtained demonstrating no evidence of significant stenosis or tortuosity of the right vertebral artery. Under roadmap views, the right vertebral artery was selectively catheterized over the Glidewire. The wire was removed, the catheter was flushed, and flow was checked. Selective right vertebral artery angiography was performed in [place] and lateral views over the posterior intracranial circulation. Selective right vertebral artery angiography demonstrates no evidence of intracranial aneurysm, arteriovenous fistula, arteriovenous malformation, or thromboembolic complication. Capillary phase and venous phase imaging is normal. Subsequently, the catheter was withdrawn while injecting contrast. There is no evidence of contrast stasis, arterial dissection, or complication related to selective right vertebral artery angiography. The catheter was pulled back to the right subclavian artery where right subclavian artery angiography was performed over the chest, neck, and right arm demonstrating no evidence of access complication. Subsequently, the catheter was pulled back to the radial sheath. Right radial artery angiography was performed in AP view. Right radial artery angiography demonstrates no evidence of access complication and occlusion of the right radial artery at the level of the sheath, with normal appearance of the right brachial and ulnar arteries. Subsequently, after secondary review of all images, the radial sheath was removed with placement of a TR band, and hemostasis was obtained. The patient remained neurologically at baseline with a stable vascular examination of the right upper extremity post procedure. I was present for, and performed the entire procedure. There were no apparent complications. I immediately discussed the results of the procedure with the patient in the waiting room.Denny mmary: Distal transradial diagnostic cerebral angiogram demonstrates multiple cerebral aneurysms including a 7 mm left middle cerebral artery bifurcation aneurysm, as described above.This document has been electronically signed by Dieter Gibson MD on 02/11/2020 1:41 PM Name Value Range Interpretation Code Description Data Samantha rce(s) Supporting Document(s) ID Date Data Source [id number] 02/02/2020 10:27:11 AM T [facility] Name Value Range Interpretation Code Description Data Samantha rce(s) Supporting Document(s) Progress Note [facility] GHIVHw1yEzIMTnBf30/PXZhyWDPty8GwANulAHz6LUbtRCDwM9WrXGG4xH0iMKL5TKyAWxHgFoUcIvYj lbm [file] ICAgICAgICAgICAgICAgICAgICAgICAgICAgICAgICAgICAgICAgICAgICAgICAgICANCiAgICAgICAg ICAgICAgICAgICAgICAgICAgICAgICAgICAgICAgIC AgICAgICAgICAgICAgICAgICAgICAgICAgICAgICAgICAgICAgICAgICAgICAgICAgICAgICAgICAgIC ANCiAgICAgICAgICAgICAgICAgICAgICAgICAgICAgICAgICAgICAgICAgICAgICAgICAgICAgICAgIC AgICAgICAgICAgICAgICAgICAgICAgICAgICAgICAg ICAgICAgICAgICANCiAgICAgICAgICAgICAgICAgICAgICAgICAgICAgICAgICAgICAgICAgICAgICAg ICAgICAgICAgICAgICAgICAgICAgICAgICAgICAgICAgICAgICAgICAgICAgICAgICAgICANCiAgICAg ICAgICAgICAgICAgICAgICAgICAgICAgICAgICAgIC AgICAgICAgICAgICAgICAgICAgICAgICAgICAgICAgICAgICAgICAgICAgICAgICAgICAgICAgICAgIC AgICANCiAgICAgICAgICAgICAgICAgICAgICAgICAgICAgICAgICAgICAgICAgICAgICAgICAgICAgIC AgICAgICAgICAgICAgICAgICAgICAgICAgICAgICAg ICAgICAgICAgICAgICANCiAgICAgICAgICAgICAgICAgICAgICAgICAgICAgICAgICAgICAgICAgICAg ICAgICAgICAgICAgICAgICAgICAgICAgICAgICAgICAgICAgICAgICAgICAgICAgICAgICAgICANCiAg ICAgICAgICAgICAgICAgICAgICAgICAgICAgICAgIC AgICAgICAgICAgICAgICAgICAgICAgICAgICAgICAgICAgICAgICAgICAgICAgICAgICAgICAgICAgIC AgICAgICANCiAgICAgICAgICAgICAgICAgICAgICAgICAgICAgICAgICAgICAgICAgICAgICAgICAgIC AgICAgICAgICAgICAgICAgICAgICAgICAgICAgICAg ICAgICAgICAgICAgICAgICANCiAgICAgICAgICAgICAgICAgICAgICAgICAgICAgICAgICAgICAgICAg ICAgICAgICAgICAgICAgICAgICAgICAgICAgICAgICAgICAgICAgICAgICAgICAgICAgICAgICAgICAN Cjw/zVPgK4ymmEJtjnZ5H6vgYc3IKh4JCM6pv8YbLZ LjETozeaVzEmcMXoIjLIHqXguKYsx7XDvmSE5BwTPbK5GxX3PtLCndZY8CCVNiTLHlxLVrPGQeMWMzNq Y7XBWyJFbiTL3LyHDoNToiSFUxIBLwOzSqVWJjIR7AGVYtH201tzOiKi2ITu7LMxDoWW4obm7FPiLrIX GrEojHBlk6PZpiHS1WqWAggDMeQgTeILQEMmZvW0id h3PqFcKkPNKMJLpdWL6Jg5IxzSLrFXj+Jb8NRG2aj4FqQMluUeXuWU1kde6SYBeWMkMbN6ZymTmlIDNb y7unZFLzZV3duAAcQRE7KUotWQzdiCDjRmXOm7CrEYmnVIWbVGZaRs8dYH8rLEKwUFO8NgP2ARAGAB7O VPMyYKVxuURhQNCpPHXFSW7FWEjpHIP1GDUrjjBqjD NqWAmrBK8VBPSkrhZnRzFhNCMWGKw+Ic6TIF8se6WxBJzqAxSlHT4rdf2RGMmGUbZwH9K5qMVgT3Q5EJ trYm8LGOOnDOGtRYryHQNRETjoZJ1XZL9irbA6WC5FsQPsUUScNZXcbRWuIIr6F34nlECbRRzsLQ0QLG A+[place]+Ik8IWVKtMVAwXTVhAhNsLHRMCcXtV1FaK8TJ y3ZzI6JaBK84mDnireSaVQkaTL0OSF6iYFReSTGNDZ2OjCWjpZ0qprSpADAfSDKQXnGgE39kwJAyOVNz VLPxRNJiGw2ILOPiA5DfupUwfFicimKbYVOgJANTHO0LULemugSnoPVvsWqhPV66dYnqLT1NDc8BQtRt UN2jmy0VcPTmFi2UVROuNX3BZPOhGFEsTHDwLRG7PD HlQyQcAOnyOUYkLFJqNBN8SHPaIPOlFE6BZvNiRLFxDNO9YZJdPHWhLXGlul0FJNLfSMX0CKLhXNVhCD ReFTGoWKntPQIzRHHmFFN6SRLmKQGhIT2FVwDzLQRyZYA3UQMzBHKqSFVpbg0UYHAmGBTsQInkOMVzMJ IvXHHqQCnzFRQvUFB2MFqcSIBjZFPqIL0RUfQoTUYx IVE2IZltQLXfGUTffu9LBJAbYYCpBaN8HoHlEJNuOSHkXKyeFWMrISC2OQBzCWTxDFRaPF7XIxDrPQSd SIwjSbGkDETyTMTfia9LCQJxJEQhYEm3BwOkJWJgKOCaKLiiREXcEHZ2WAj3TIEiGKLtYY9PFaGoDRZi HDzrQiJzQIJwNGUwfy2LIXWcPTD1TEz1SUHvFDOfOW FuANjgIVBmNTPpLCg0XGKyIOHgSK5ZZfWuQFAqHEA5JGnsBZBzQQXseh5JGERvXXZ4MvStBEYfLSUuXM NlMAspDOHcWLEnHpIeRIScSQLuIX6LVrHsBYEyJFXrIyYcTJLhBTQdfx1ERWVoSMX1JVRrDGCdVQYgPK PlXNgqDEMsSIX1JIn5CUXzDZSsXB7OEjIfKFUgRPI8 RfZqEPAaTRZoht2BlEVelThipu2TRQwLGb0JcLsoDDV3EZkgKi6nwSVkGcXeJUQRZw9NnlXeBDAiGAMQ ERsvGGEsVLCdIRJtAEPzEEZ5PBb6KyJqQHz5UoKmGCMuLBN8MbEeOrV3AWSgE4F6TZC0JYN9AqZrFNOa QmHvHQJvN6KnDVx5MTF+BR2gXWd+Gl8Fd4CbncI7uwNkGKc3GYe6RQ7NXKQEQ1XQIq== ID Date Data Source [id number] 01/26/2020 10:53:46 AM [facility] Name Value Range Interpretation Code Description Data Samantha e(s) Supporting Document(s) History and Physical [facility] VFKBXn2iDrASDyHu14/QFZdsUGOhq7PgVCntZOi8NDzhSXCcR7QqELL0zN2sSEP1CTnMBlEqHkKhFpVr lbm [file] SRC2ZTNh== ID Date Data Source [id number] 01/26/2020 11:29:25 AM EDT [facility] Name Value Range Interpretation Code Description Data Samantha rce(s) Supporting Document(s) Creatinine [Mass/volume] in Blood 0.7 mg/dL 0.50-0.90 [facility] ID Date Data Source [id number] 01/25/2020 11:30:52 AM EDT [facility] Name Value Range Interpretation Code Description Data Samantha rce(s) Supporting Document(s) Progress Note [facility] KLKDUo6gNoPTXrNt18/DDYzoSBRiu8UfCTyhNSx9DXnyXMCfB7DxCJR0hB5vJUO4UQoQVkSfIuXoHeNk lbm [file] DZp8GiX9NVlzVVYJWc6A ID Date Data Source [id number] 01/23/2020 09:47:46 AM EDT [facility] Name Value Range Interpretation Code Description Data Samantha rce(s) Supporting Document(s) Progress Note [facility] QKTMFt9bTaFMNzNt52/NMPmwXXLxt5SdLGwsGEp4DLqnMFDuV4IqOSX0oX7vFCR6OWhBJfCtPkDyTiVp lbm [file] EnFZLaJVT0YuvyEFLcW6E+IG2zSQq+Tp5Ge6OxsoN8qfZeKRcsZVTtKu1WOZVLN1YTMb== ID Date Data Source [id number] 01/24/2020 07:35:52 AM [facility] Cmnt XXX-Imp : NoneMicroorganism XXX Cult : 2019 nCoV Real-Time RT-PCR: NOT DETECTEDTest performed using the Wig[employer]ag COVID-19 MDx Assay. This test is only for use under the Food and Drug Administration's Emergency Use Authorization.Additional information is available on the following FDA websites for health care providers and patients. https://www.fda.gov/media/109492/download , https://www .fda.gov/media/553900/download Name Value Range Interpretation Code Description Data Samantha rce(s) Supporting Document(s) ID Date Data Source [id number] 01/23/2020 09:47:00 AM EDT [facility] Cmnt XXX-Imp : NoneMicroorganism XXX Cult : 2019 nCoV Real-Time RT-PCR: NOT DETECTEDTest performed using the WigWag COVID-19 MDx Assay. This test is only for use under the Food and Drug Administration's Emergency Use Authorization.Additional information is available on the following FDA websites for health care providers and patients. https://www.fda.gov/media/906234/download , https://www .fda.gov/media/284518/download Name Value Range Interpretation Code Description Data Samantha rce(s) Supporting Document(s) Microorganism identified in Unspecified specimen by [facility] This lab was ordered by [facility] and reported by [facility]. ID Date Data Source [id number] 01/18/2020 12:20:00 PM EDT [facility] Name Value Range Interpretation Code Description Data Samantha rce(s) Supporting Document(s) APPEARANCE U HAZY CLEAR N [facility] SPEC GR URIN 1.019 1.002-1.035 N [facility] UA COLOR YELLOW YELLOW N [facility] ID Date Data Source [id number] 01/18/2020 12:20:00 PM EDT [facility] Name Value Range Interpretation Code Description Data Samantha rce(s) Supporting Document(s) HCT 38.9 % 36.0-47.0 N [facility] HGB 12.7 g/dL 12.0-15.5 N [facility] MCH 32.6 G/DL pg 32.0-36.5 [facility] MCHC 31.8 PG % 27.0-33.0 [facility] PLATELETS 401 10 10*3/mm3 150-450 N [facility] RBC 4.00 10 10*6/mm3 4.00-5.40 [facility] RDW 13.5 % 11.5-14.5 [facility] WBC TOTAL 8.9 4.0-10.0 N [facility] ID Date Data Source [id number] 01/18/2020 12:20:00 PM EDT [facility] Name Value Range Interpretation Code Description Data Samantha rce(s) Supporting Document(s) BG FASTING 75 mg/dL 70-100 N [facility] ID Date Data Source [id number] 10/14/2019 12:10:49 PM EDT [facility] Measurements & CalculationsHeight: 61 inches (5 ft. 1 in.) 154.94 cm Weight: 137 pounds 62.27 kg Body Mass Index (BMI): 25.98BMI Interpretation: OverweightBody Surface Area (BSA): 1.61Weight Management Education Done (Nutrition/Physical Activity)Vital SignsTemperature: 97.8FPulse Rate: 79 beats/minuteRespiratory Rate: 16 respirations/minuteBlood Pressure: 101/67 O2 Saturation: 91% Vital Signs performed by: Caron Bruce MA, October 14, 2019 12:14 PMInitial Intake Information from: patientSmoking, Tobacco, Vaping or Smoke Exposure StatusSmoke Status: former smokerTobacco Use: NoDo you vape? NoPassive Smoke Exposure: NoMenstrual HistoryAny possibility of ? NoHealthcare HistorySince your last office visit...Have you been admitted to the hospital? No - [facility] admission date reported today: 05/07/2019Have you been to an emergency room (ER) or urgent care clinic? No - smcHave you seen an other healthcare provider? Yes - community clinicHave you seen a dentist? No - in houseIntake performed by: Caron Bruce MA, October 14, 2019 12:12 PMRate Your HealthIn general, would you say your health is? Very GoodPain AssessmentAre you currently having any pain which... You would like your provider to address? No Affects your activity level? NoDepression Screening - PHQ-2Over the last two weeks, have you... Had little interest or pleasure in doing things? Not at all Been feeling down, depressed, or hopeless? Not at all PHQ- 2 Score: 0Anxiety Screening - ROBERT-2Over the last two weeks, have you been... Feeling nervous, anxious, or on edge? Not at all Unable to stop or control worrying? Not at all ROBERT-2 Score: 0Infectious Disease / Travel ScreeningRecent travel for you, your family, and/or any sexual partners? NoScreening, Brief Intervention, & Referral to Treatment (SBIRT)Pre-Screening Questions How many times have you have 4 or more drinks in a day? 0How many times have you used an illegal drug or used a prescription medication for a non-medical reason? 0Performed by: Caron Bruce MA, October 14, 2019 12:13 PMPatient History Medical History:DepressionAnxietystokebrain bleed aneurysmSurgical History:polyps removedhemmoroidsHysterectomy total- 2013Family History:Cancer - Unknown (Brother)Down's syndrome (Sister)Cancer - Unknown (Sister)Social/Personal History: Chief Complaint3 month f/uHistory of Present Illness (HPI)Telemedicine visit with patient's location at [facility] and provider's location at offsite office. Additional person(s)participating in the visit: n/a. She is here today for 3 month follow up. She has been compliant with her meds. Had a CVA in May 2019 and has since seen neuro for follow up. She states that she needs to have another MRI, she states that the doctor told her she has 3 more brain aneursyms. No records available to review today to verify this informoation.She recently went to the dentist and needs clearance for dental work from neuro.HPI performed by: Sarah CENTENO, October 14, 2019 12:16 PMTransitions of Care InboundProblem ReviewProblem List was reviewed and/or updated during this visit.Medication Rec onciliation & ReviewMedication List was reviewed and/or updated during this visit, including review of any gwfe-npf-wwhvtmp medications, herbal therapies, and/or supplements.Allergy ReviewAllergy List was reviewed and/or updated during this visit.Adult Preventive CareProvider Calculated and Reviewed all Clinical Protocols for patient today. Labs/Meds/Other Counseling-Nutrition and Physical Activity:BMI Interpretation: Overweight (10/14/2019) Counseling: Done (10/14/2019) Physical Activity: Done (10/14/2019)Cancer Screening Mammogram Reviewed: Previous Comments: needs one (06/03/2017)Today's Comments: lesterlay orderReview of Systems General: Denies chills, fatigue, fever, headache, feeling ill, sweats, night sweats, sleep disturbances. Cardiovascular: Denies chest pain, palpitations, feeling faint. Respiratory: Denies cough, difficulty breathing. Neurologic: Denies weakness, numbness/tingling, seizures. Psychiatric: Complains of feeling stressed. Denies depression, anxiety. Physical ExamGeneral Appearance: well nourished, well hydrated, no acute distressEyes, External: conjunctivae and lids normal, EOMIHearing: grossly intactRespiratory, Effort: no intercostal retractions or use of accessory musclesGait & Station: normalOrientation: oriented to time, place, and personMood & Affect: no depression, anxiety, or agitationJudgment & Insight: intactMemory: intact for recent and remote eventsCare Management Plan Transitions of CareInboundRate Your HealthIn general, would you say your health is? Very GoodAssessment & Plan Problems:Assessed:Other cerebral infarction (QBU40-N41.89) Assessment: Instructions: Continue to follow up with neurology as instructed. Please fill out a release of information form to obtain records from [facility].Anxiety depression (ICD-300.4) (UMR12-P43.8) Assessment: Instructions: Continue same medications for your mental health.Other cerebral infarction (ZVT55-Z10.89) Assessment: Pt instructed to follow up with neuro PETERSON and [facility] sent for records.Anxiety depression (ICD- 300.4) (MRQ38-M52.8) Assessment: Stble on current meds.Patient Instructions/Care Plan: Other cerebral infarction: Continue to follow up with neurology as instructed. Please fill out a release of information form to obtain records from [facility].Anxiety depression: Continue same medications for your mental health. Plan developed in collaboration with patient and/or familyMedications:ONE A DAY MVICVS NICOTINE 4 MG MOUTH/THROAT GUMPRAZOSIN HCL 1 MG ORAL CAPSULEADULT ASPIRIN REGIMEN 81 MG ORAL TABLET DELAYED RELEASEATORVASTATIN CALCIUM 40 MG ORAL TABLETBUSPIRONE HCL 15 MG ORAL TABLETBUPROPION HCL ER (XL) 150 MG ORAL TABLET EXTENDED RELEASE 24 HOURGABAPENTIN 300 MG ORAL CAPSULEDRISDOL 09514 UNIT ORAL CAPSULEEPIPEN 2-SUMAYA 0.3 MG/0.3ML INJECTION SOLUTION AUTO-INJECTOREFFEXOR XR 75 MG ORAL CAPSULE EXTENDED RELEASE 24 HOURMedication Changes:Removed:NICODERM CQ 14 MG/24HR TRANSDERMAL PATCH 24 HOUR-1 patch daily Qty: 30[Patch] Refills: 1Allergi es:PENICILLIN (Critical)* BEES (Critical)Orders:Office Visit - Established, Level 3 [CPT-33903MN] Follow-Up Return to clinic: 3 months for follow up Clinical Visit Summary CompletedMedications:Cancelled NICODERM CQ 14 MG/24HR TRANSDERMAL PATCH 24 HOUR (NICOTINE) 1 patch daily #30[Patch] x 1 Route:TRANSDERMAL Entered and Authorized by: Sarah CENTENO Method used: Electronically to [facility] (retail) [address] [place] [address] RxID: [id number]] Name Value Range Interpretation Code Description Data Samantha rce(s) Supporting Document(s) ID Date Data Source [id number] 10/12/2019 10:50:03 AM EDT [facility] Patient History Medical History:Depressi onAnxietystokebrain bleed Surgical History:polyps removedhemmoroidsHysterectomy total- 2014Family History:Cancer - Unknown (Brother)Down's syndrome (Sister)Cancer - Unknown (Sister)Social/Personal History: Smoking Status: former smokerDo you vape? NoCurrent Problems: Insomnia (ICD-780.52) (KHL35-N23.00)Other cerebral infarction (EFG82-Y52.89)Partial loss of teeth due to periodontal diseases, class II (YLL68-A35.422)Dental caries (ICD-521.00) (GPO25-E58.9)Shoulder pain, right (ICD-719.41) (FCT58-V74.511)Screening for colon cancer (ICD-V76.51) (UDK08-F57.11)Dental caries (ICD-521.00) (JFD82-E93.9)DENTAL CARIES EXTENDING INTO PULP (ICD-521.03) (JDD49-U21.63)Vitamin D deficiency (ICD-268.9) (ICD10- E55.9)Needs vaccination for influenza (ICD-V04.81) (ZAI56-S59)Pain of bilateral hands (HWY74-Q47.641)Health Screening (ICD-V70.0) (DDS98-L95.9)Screening for malignant neoplasm of breast (DWZ15-Z51.39)Anxiety depression (ICD-300.4) (GVS91-G05.8)History of total hysterectomy (ICD-V88.01) (RKW89-K55.710)BMI 23.0- 23.9 (ICD-V85.1) (TBY13-S91.23)Passive smoke exposure (ICD-V15.89) (ICD10- Z77.22)Tobacco dependence in remission (ICD-305.1) (CNP64-N38.291)Problem list reviewed during this update.Current Medications: * ONE A DAY [facility] NICOTINE 4 MG MOUTH/THROAT GUM (NICOTINE POLACRILEX) 1 piece by mouth every 1-2hrs as needed for cravings mDD 24 pieces; Route: MOUTH/THROATPRAZOSIN HCL 1 MG ORAL CAPSULE (PRAZOSIN HCL) 1 tab by mouth every night at bedtime; Route: ORALNICODERM CQ 14 MG/24HR TRANSDERMAL PATCH 24 HOUR (NICOTINE) 1 patch daily; Route: TRANSDERMALADULT ASPIRIN REGIMEN 81 MG ORAL TABLET DELAYED RELEASE (ASPIRIN) one daily; Route: ORALATORVASTATIN CALCIUM 40 MG ORAL TABLET (ATORVASTATIN CALCIUM) one tab every evening; Route: ORALBUSPIRONE HCL 15 MG ORAL TABLET (BUSPIRONE HCL) 1 tab twice per dayBUPROPION HCL ER (XL) 150 MG ORAL TABLET EXTENDED RELEASE 24 HOUR (BUPROPION HCL) 1 tab by mouth every day; Route: ORALGABAPENTIN 300 MG ORAL CAPSULE (GABAPENTIN) 1 capsule by mouth every night at bedtime for pain; Route: ORALDRISDOL 31132 UNIT ORAL CAPSULE (ERGOCALCIFEROL) Take 1 capsule weekly; Route: ORALEPIPEN 2-SUMAYA 0.3 MG/0.3ML INJECTION SOLUTION AUTO-INJECTOR (EPINEPHRINE) 0.3mg SC/IM x 1, may repeat dose x 1 after 5-15 min; Route: INJECTIONEFFEXOR XR 75 MG ORAL CAPSULE EXTENDED RELEASE 24 HOUR (VENLAFAXINE HCL) take three tabs po at bedtime; Route: ORALMedication list reviewed during this update.Current Allergies: PENICILLIN (Critical)* BEES (Critical)Allergy list reviewed during this update.Past Medical History:(reviewed - no changes required) DepressionAnxietystokebrain bleed Dental Chart: Procedures:Type - CDT Code - Description B - (D0120) Periodic oral evaluation - established patient (Performed by Rebecca Lyn DMD) Treatments:Type - CDT Code - Description T - (D2150) Amalgam, 2 surfaces, primary or permanent on Tooth # 3 on Tooth Surface OM (Performed by Edwige Sol RDH) Existing:Type - CDT Code - Description[E] Decay On #3 Surface OM[E] Chipped On #9 Surface GENE Chart Alert:approved for Perio 4342 for UL AND UR Chart Notes:akosua (Oct 12 2019 2:43PM): [facility](+ Pt getting further testing). CC: none. Reviewed Xrays. Exam: caries detected. OCS: WNL, IO/ EO completed, No significant hard findings upon clinical exam Pt was cooperative.OHI givenReferral: N/ANV:filling when med clearance obtainedEdwige Sol RDH by akosua (10/12/2019 2:43 PM): ; irish (Oct 12 2019 11:14AM): Pt arrived for perio mainteance appointment stating she has been hospitalized in [place] for a week since last visit and is currently being tx by a neroulogist for 3 on going brain anuerysms. Per Dr Lyn no perio mainteance to be done today. Pt missed her filling appointments due to being hospitalized. MEDICAL CLEARANCE NEEDED PRIOR TO FURTHER TREATMENT. Then pt will need to be booked for a fillings and the perio mainteance. Edwige Sol RDH (10/12/2019 11:14 AM): Tooth Notes and Watches:- Tooth 15 Watch: BuccalEdwige Sol (09/30/2018 8:48 AM): - Tooth 19 Watch: Watch distal per Dr Lyn.Edwige Sol (04/10/2019 9:41 AM): - Tooth 3 Watch: MesialEdwige Sol (09/30/2018 8:47 AM): - Tooth 9 Note: Dr Lyn states chip is not repairable due to bite. Edwige Sol RDH (10/12/2019 11:10 AM): Assessment & Plan Medications:ONE A DAY MVICVS NICOTINE 4 MG MOUTH/THROAT GUMPRAZOSIN HCL 1 MG ORAL CAPSULENICODERM CQ 14 MG/24HR TRANSDERMAL PATCH 24 HOURADULT ASPIRIN REGIMEN 81 MG ORAL TABLET DELAYED RELEASEATORVASTATIN CALCIUM 40 MG ORAL TABLETBUSPIRONE HCL 15 MG ORAL TABLETBUPROPION HCL ER (XL) 150 MG ORAL TABLET EXTENDED RELEASE 24 HOURGABAPENTIN 300 MG ORAL CAPSULEDRISDOL 00593 UNIT ORAL CAPSULEEPIPEN 2-SUMAYA 0.3 MG/0.3ML INJECTION SOLUTION AUTO-INJECTOREFFEXOR XR 75 MG ORAL CAPSULE EXTENDED RELEASE 24 HOURMedication Changes:Added: * ONE A DAY MVIAllergies:PENICILLIN (Critical)* BEES (Critical)Clinical Visit Summary Declined Name Value Range Interpretation Code Description Data Samantha rce(s) Supporting Document(s) ID Date Data Source [id number] 10/10/2019 09:05:21 AM [facility] Name Value Range Interpretation Code Description Data Samantha rce(s) Supporting Document(s) Progress Note [facility] BJKYRy2tXnQUEiZf68/PCMxrWPDvc8RmYKzuHSj5GLmcMJKiV2QeZVA5gZ4xSYR2IBiRJnRkEgXgXaC8 lbm TzYnwGYkUrJRYsIqvMFmGiRSpbCtgeeYDjCH9SgDV2EBTqC95cUKTqXPEiH2XqAFV1BYJ+Ii8CMIMzdK HyKP1PSazF7U6ou8dETa0ceU2tpNPA1DHEsbJ9ZuLdRvanL73oRMxZ7jOYHQR1nxeit+Qk7q/mZs8OJa XNhHqiIZeKc+7TR3jNyoM7lc9tm36W2v6wlgiYsvGp 1b/6g4Sh4UDu/xpGGg1w2pMh5c/pUgSKrxViVq9OrzJazy837fwXH02FiCm+CaneLxBhr10jHlm4k0q/ fq/8ojv8KUNaQRmIbYvM5IQBzzF2sEFug9oBG5BxepjVC/gzytd9c1YhGsCyKld+ON2ZN9FErXkZDeFm eF48LN+lD98/IjRfFe+G5Aj46JrDvzXgoRyxCGrUFY AgQ+AG3Z58RYpdE68cT2QjxV33klDcqQSnOPE14iKtO4jzZzEWUqqeoeq06QFIOSz6XvtDjScX8Kh8VT rNgHbrT3MxRSf/R0ClZlzYdz5P6WVOiEGXFegqQb8ibrwfN7j3Fk3B4gJgu3vZ8SppKP/xw2f1jIxfsn B8uPWOvoQg882YU9Nw09IVnMykEkMiIGU5XOytHfOg q2C9umFnH0VBLhV3Jw/PEÑA/W82/t8pHng4dqO55/1avMNq1ntqVLKyPNhfMrEQ9CxZHwis46fi9jMdIgx [file] ICAgICAgICAgICAgICAgICAgICAgICAgICAgICAgICAgICAgICAgICAgICAgICAgICAgICAgICAgICAg ICAgICAgICAgICAgICAgICAgICAgICAgICAgICAgICAgICAgICANCiAgICAgICAgICAgICAgICAgICAg ICAgICAgICAgICAgICAgICAgICAgICAgICAgICAgIC AgICAgICAgICAgICAgICAgICAgICAgICAgICAgICAgICAgICAgICAgICAgICAgICANCiAgICAgICAgIC AgICAgICAgICAgICAgICAgICAgICAgICAgICAgICAgICAgICAgICAgICAgICAgICAgICAgICAgICAgIC AgICAgICAgICAgICAgICAgICAgICAgICAgICAgICAN CiAgICAgICAgICAgICAgICAgICAgICAgICAgICAgICAgICAgICAgICAgICAgICAgICAgICAgICAgICAg ICAgICAgICAgICAgICAgICAgICAgICAgICAgICAgICAgICAgICAgICANCiAgICAgICAgICAgICAgICAg ICAgICAgICAgICAgICAgICAgICAgICAgICAgICAgIC AgICAgICAgICAgICAgICAgICAgICAgICAgICAgICAgICAgICAgICAgICAgICAgICAgICANCiAgICAgIC AgICAgICAgICAgICAgICAgICAgICAgICAgICAgICAgICAgICAgICAgICAgICAgICAgICAgICAgICAgIC AgICAgICAgICAgICAgICAgICAgICAgICAgICAgICAg ICANCiAgICAgICAgICAgICAgICAgICAgICAgICAgICAgICAgICAgICAgICAgICAgICAgICAgICAgICAg ICAgICAgICAgICAgICAgICAgICAgICAgICAgICAgICAgICAgICAgICAgICANCiAgICAgICAgICAgICAg ICAgICAgICAgICAgICAgICAgICAgICAgICAgICAgIC AgICAgICAgICAgICAgICAgICAgICAgICAgICAgICAgICAgICAgICAgICAgICAgICAgICAgICANCiAgIC AgICAgICAgICAgICAgICAgICAgICAgICAgICAgICAgICAgICAgICAgICAgICAgICAgICAgICAgICAgIC AgICAgICAgICAgICAgICAgICAgICAgICAgICAgICAg ICAgICANCiAgICAgICAgICAgICAgICAgICAgICAgICAgICAgICAgICAgICAgICAgICAgICAgICAgICAg ICAgICAgICAgICAgICAgICAgICAgICAgICAgICAgICAgICAgICAgICAgICAgICANCjw/jMItF1augHYf enL6G2jdEs4GLj6LGO0vk3JsIAFwAEpmjyHjHxdHHm BfYZAwXmyCRby3HJjhAQ0CcPMvM2JnU0JbPCssTG0DRKUcSEHycMZvZOBoKIAsRiJ6DCMeSLuiVO0NmL NrKNdeKHMwQZCmJjJiRDGwGN0FLLBtT398vvKmVj7BYj5YKlIrAM1cfk2IAnXpGIYhTqoPTwb8DZzcAH 6OsXTokDFwCZUwRXLTMaHiH5spy5YmNbDnEBKVZNoh JX0Pi3IjgDFtKKp+Lh7SRF2hj1LzZJqmTGTuGJ0dvq6PVDwNLfVyB4MxcRhvJXEqy1esKYBkYJ8reCSh ZRP0PD3kS5psiYlxZSWtLGNgG4s2nNryXHYxVPElRj79XwIbDdApBSK2MYOpQP9nHJqmVE5TOTG4WIwm UIJgFDJgA0lULeEfFUCoPXUmdLdpUU6BZnNjF1Ohtr VudCAyNCAwIFINCj4+MOfayeLqEttLIyF4RETni2TbNEj2ZO3HJFOkTBplHE9AMTPjcG7qIUkaUO8USs CqEaZvKWEOVyHwH34awJMyHUk2L8KeVzSzMFMwRxaaIZAjDKemYfSyQTPbEfMlWCtyNH6+ID4+DQogIC 5NKMctysLdZDEbBt1DRMRiOWGpPW7jVGCyWTBkI4O3 bEqyOLZFAmXxD2kdbwjdFW4zGFPyV470gYavbeOlZID0CLRhFi1NVORkDGQ0JQWgvZXwWsUgBLNXMHcm PP9OpQYaUDI5lE4aGVwaMEFsSXZxB5eBUqMzbAehOT51tDyaxsCcxTIbHWr+Ds2XJG2hp4ZvAWn7mvCj LEnwAKI3UPwePMGkWOLoRIVgQWC5MMA9UZMEYgDxQQ StKGIdNOjlJAUrNYRypl1ZTFZsMCIcRdH9ELVwONWuTJVoCTrfRFTjJUOwDur6ZQQmCZCfOK3PGjAgTY OwIKAyOTesMXAyEYTrtx3ELZIoXJRbWpd9EBBlKGWoWPNqAToqSYSpDBZiNEz6YZLzLJZtCE5WEpJmBC ZkHTL8CfRbAPKxHJJxqx2HAUKtBVEvJFh6VBKzUAEq GWLjAWwtPBQpDRP4RiN9ZLCxJMQcOZ0WWmDhOGIgPFO2KlSpXQRpNWUadh7LTVWoGYMsMqPkXDMvWQMk MHZrZQplLRJxDUT0TGFyMXPeUAEeGM0ZBzHiMHQgGEifApAlJTIrPVScjt7QAEKbLHDoXLO3ZMCaUVYb BTYfQCnoLZGiDXS0WKE1KPElDGMjPO0PNkCpOQZdQi BhOsCmJXMxSPVqoh7TZHGvISTpZEHpKTPjGUVwGPHvOMmtJQBqFDHaKWikOYVxKGNzNH5ZPiJcIVWlJg X1JBFjXOTfZTAjwb8ZKRVcSFEjTNS2GNVhSTZrWYIvUGaiUXHbTHYlKBYnOXDcCASjXZ8XXuRwSIInVx SyIockKXPpOJNlni5UMRDvXAYqApP8PHTbFMEfKMKn KUmkCMKaCPGzDQn9WHGdAOEySJ7XJwLdAUAgCaZ5OkNaCPQrVQUgpw8FZMWyDFJpPZCyRlMnNEAiLQCs MCb5ldTsmCRkDLw6PO7PD2BfahVuOpjJFw7Sl140DYC1XPQfLg1VC2wjHo7kMZVaPHVLQl9GENk5NZVa V6S3MCYaDIzxARDpLBAaGlg1MPK9BOS6VMGaYJH+ID qrQPDtCdhvWNQ5GsMiADBdIOAqPYK6FoY5BqXiRYU7Sc1wYEBIUq4+ZTsbfIJclTxbBSYIRnQ9SiK4TP szFUXOIf9W Procedure Social History Code Duration Value Status Description Data Source(s ) Smoking 08/24/2020 12:00:00 AM EST Unknown if ever smoked comp leted Unknown if ever smoked [facility] Smoking 07/27/2020 12:00:00 AM EST Unknown if ever smoked comp leted Unknown if ever smoked [facility] ([facility]) Smoking 05/19/2020 12:00:00 AM EDT Unknown if ever smoked comp leted Unknown if ever smoked [facility] ([facility]) Smoking 05/18/2020 12:00:00 AM EDT Unknown if ever smoked comp leted Unknown if ever smoked [facility] ([facility] Alcohol intake 03/18/2020 12:00:00 AM EDT Ex-drinker (finding) comp leted Ex- drinker (finding) [facility] Tobacco use and exposure 03/18/2020 12:00:00 AM EDT Former user co mpleted Former user [facility] Cigarette pack-years 03/18/2020 12:00:00 AM EDT UNK completed [facility] Cigarettes smoked current (pack per day) - Reported 03/18/20 12:00:00 AM EDT UNK completed [facility] Smoking 03/18/2020 12:00:00 AM EDT Former smoker completed Former smoker [facility] Alcohol intake 03/14/2020 12:00:00 AM EDT Ex-drinker (finding) comp leted Ex- drinker (finding) [facility] Alcohol intake 02/02/2020 12:00:00 AM EDT Ex-drinker (finding) comp leted Ex- drinker (finding) [facility] Cigarette pack-years 02/02/2020 12:00:00 AM EDT UNK [facility] Cigarettes smoked current (pack per day) - Reported 02/02/20 12:00:00 AM EDT UNK completed [facility] Smoking 02/02/2020 12:00:00 AM EDT Former smoker completed Former smoker [facility] Alcohol intake 01/26/2020 12:00:00 AM EDT Ex-drinker (finding) comp leted Ex- drinker (finding) [facility] Smoking 01/26/2020 12:00:00 AM EDT Former smoker completed Former smoker [facility] Smoking 12/23/2019 12:00:00 AM EDT Unknown if ever smoked comp leted Unknown if ever smoked [facility] Smoking 11/25/2019 12:00:00 AM EDT Unknown if ever smoked comp leted Unknown if ever smoked [facility] ([facility]) Alcohol intake 10/07/2019 12:00:00 AM EST Ex-drinker (finding) comp leted Ex- drinker (finding) [facility] Smoking 10/07/2019 12:00:00 AM EST Former smoker completed Former smoker [facility] Smoking 09/23/2019 12:00:00 AM EST Unknown if ever smoked comp leted Unknown if ever smoked [facility] ([facility]) Smoking 08/26/2019 12:00:00 AM EST Unknown if ever smoked comp leted Unknown if ever smoked [facility] ([facility]) Vital Signs ID Date Data Source UNK Name Value Range Interpretation Code Description Data Source(s) Diastolic blood pressure 0 mm[Hg] Normal (applies to non-numeric results) 0 mm[Hg] [facility] ([facility]) Systolic blood pressure 0 mm[Hg] Normal (applies t o non-numeric results) 0 mm[Hg] [facility] ([facility]) Body mass index (BMI) [Ratio] 0.00 kg/m2 No rmal (applies to non-numeric results) 0.00 kg/m2 [facility] ([facility]) Body weight Measured 0.00 lbs Normal (applies to n on-numeric results) 0.00 lbs [facility] ([facility]) Body height 0.00 in Normal (applies to non-numeric resu lts) 0.00 in [facility] ([facility]) Diastolic blood pressure 0 mm[Hg] Normal (applies to non-numeric results) 0 mm[Hg] [facility] ([facility]) Systolic blood pressure 0 mm[Hg] Normal (applies t o non-numeric results) 0 mm[Hg] [facility] ([facility]) Body mass index (BMI) [Ratio] 0.00 kg/m2 No rmal (applies to non-numeric results) 0.00 kg/m2 [facility] ([facility]) Body weight Measured 0.00 lbs Normal (applies to n on-numeric results) 0.00 lbs [facility] ([facility]) Body height 0.00 in Normal (applies to non-numeric resu lts) 0.00 in [facility] ([facility]) Diastolic blood pressure 0 mm[Hg] Normal (applies to non-numeric results) 0 mm[Hg] [facility] ([facility]) Systolic blood pressure 0 mm[Hg] Normal (applies t o non-numeric results) 0 mm[Hg] [facility] ([facility]) Body mass index (BMI) [Ratio] 0.00 kg/m2 No rmal (applies to non-numeric results) 0.00 kg/m2 [facility] ([facility]) Body weight Measured 0.00 lbs Normal (applies to n on-numeric results) 0.00 lbs [facility] ([facility] Body height 0.00 in Normal (applies to non-numeric resu lts) 0.00 in [facility] Diastolic blood pressure 0 mm[Hg] Normal (applies to non-numeric results) 0 mm[Hg] [facility] ([facility]) Systolic blood pressure 0 mm[Hg] Normal (applies t o non-numeric results) 0 mm[Hg] [facility] ([facility]) Body mass index (BMI) [Ratio] 0.00 kg/m2 No rmal (applies to non-numeric results) 0.00 kg/m2 [facility] ([facility]) Body weight Measured 140.00 lbs Normal (applies to n on-numeric results) 140.00 lbs [facility] ([facility]) Body height 0.00 in Normal (applies to non-numeric resu lts) 0.00 in [facility] ID Date Data Source [id number] 02/02/2020 10:27:11 AM [facility] Name Value Range Interpretation Code Description Data Source(s) WEIGHT RECORDED 128.6 lb 128.6 lb [facility] Body height Measured 61 in 61 in [facility] ID Date Data Source [id number] 02/12/2020 06:53:30 AM [facility] Name Value Range Interpretation Code Description Data Source(s) WEIGHT RECORDED 125 lb 125 lb [facility] Body height Measured 61 in 61 in [facility] Patient Treatment Plan of Care Planned Activity Planned Date Details Description Data Source (s) Cholecalciferol 52306 UNT Oral Capsule 03/20/2020 09:00:00 AM [facility] Aspirin 81 MG Chewable Tablet 03/17/2020 12:00:00 AM [facility] Aspirin 81 MG Chewable Tablet 03/17/2020 12:00:00 AM [facility] Magnesium Hydroxide 80 MG/ML Oral Suspension 03/16/2020 12:00:00 AM [facility] Acetaminophen 325 MG Oral Tablet 03/16/2020 12:00:00 AM [facility] Ticagrelor 90 MG Oral Tablet 03/15/2020 12:00:00 AM [facility] Magnesium Hydroxide 80 MG/ML Oral Suspension 03/14/2020 10:00:00 PM [facility] Acetaminophen 325 MG Oral Tablet 03/14/2020 05:14:49 PM [facility] sennosides, SNF 35.2 MG/ML Oral Solution 03/14/2020 05:14:33 PM [facility] Bisacodyl 10 MG Rectal Suppository 03/14/2020 05:14:33 PM [facility] 4 ML Labetalol hydrochloride 5 MG/ML Cartridge 03/14/2020 05:14:33 PM [facility] gabapentin 300 MG Oral Capsule 01/27/2020 12:00:00 AM [facility] Nicotine 2 MG Chewing Gum 12/28/2019 12:00:00 AM [facility] buspirone hydrochloride 15 MG Oral Tablet 12/28/2019 12:00:00 AM [facility] 24 HR Nicotine 0.583 MG/HR Transdermal Patch 12/24/2019 12:00:00 AM [facility] Cholecalciferol 19010 UNT Oral Capsule 10/22/2019 12:00:00 AM [facility] Prazosin 1 MG Oral Capsule 09/27/2019 12:00:00 AM [facility] Aspirin 81 MG Delayed Release Oral Tablet [facility] 24 HR Nicotine 0.875 MG/HR Transdermal Patch [facility]
[2020-09-23] MEDS ORDERED: diphenhydrAMINE 50MG/ML VIAL (J1200) IV STA (17:52)
[2020-09-23] MEDS ORDERED: METOCLOPRAMIDE INJ 10MG/2ML VIAL (J2765 PER 1) IV ONE (18:00)
--- OUTSIDE RECORDS SUMMARY | 2020-09-23 18:17 | CCD ---
Author Author [facility] Organization [facility] Address Unknown Phone Unavailable Care Team Providers Care Manager Environmental Name Role Phone Marianna HERNANDEZ Unavailable Unavailable [...] Unavailable JOSE, S JOSE KEMP Unavailable Unavailable OJSE, S JOSE KEMP Unavailable [...] Unavailable GIBSON, C GRAHAME MD Unavailable Unavailable GBISON, C GRAHAME MD Unavailable Unavailable GIBSON, C GRAHAME MD Unavailable Unavailable GIBSON, C GRAHAME MD Unavailable Unavailable GIBSON, C GRAHAME MD Unavailable Unavailable GIBSON, C GRAHAME MD Unavailable Unavailable GIBSON, C GRAHAME MD Unavailable Unavailable GIBSON, C GRAHAME MD Unavailable Unavailable GIBSON, C GRAHAME MD Unavailable Unavailable GIBSON, C GRAHAME MD Unavailable Unavailable GIBSON, C GRAHAME MD Unavailable Unavailable MACQUEEN, BRITTANY BRAZER CRAWLER TORCH Unavailable Unavailable MACQUEEN, BRITTANY BRAZER CRAWLER TORCH Unavailable Unavailable MACQUEEN, BRITTANY BRAZER CRAWLER TORCH Unavailable Unavailable MACQUEEN, BRITTANY BRAZER CRAWLER TORCH Unavailable Unavailable MACQUEEN, BRITTANY BRAZER CRAWLER TORCH Unavailable Unavailable MACQUEEN, BRITTANY BRAZER CRAWLER TORCH Unavailable Unavailable MACQUEEN, BRITTANY BRAZER CRAWLER TORCH Unavailable Unavailable MACQUEEN, BRITTANY BRAZER CRAWLER TORCH Unavailable Unavailable MACQUEEN, BRITTANY BRAZER CRAWLER TORCH Unavailable Unavailable MACQUEEN, BRITTANY BRAZER CRAWLER TORCH Unavailable Unavailable MACQUEEN, BRITTANY BRAZER CRAWLER TORCH Unavailable Unavailable PALMA EMMANUEL Unavailable Unavailable FAIZAN, [...] protected by Article 27-F of the [facility] Public Health law. If you continue you may have access to information: Regarding HIV / AIDS; Provided by facilities licensed or operated by the [facility] Office of Mental Health; or Provided by the [facility] Office for People With Developmental Disabilities. If such information is present, then the following [facility] mandated warning applies: This information has [...] law may result in a fine or shelter sentence or both. A general authorization for the release of medical or other information is NOT sufficient authorization for further disc losure. Allergies and Adverse Reactions Type Description Substance Reaction Status Data Source(s ) Propensity to adverse reactions to substance Penicillins Fan up Penicillins Group anaphylaxis Active [facility] ([facility]) Encounters Encounter Providers Location Date Indications Data Source(s ) Outpatient Attender: BRITTANY BARFIELD NP [facility] Kodi kemp 08/24/2020 09:30:00 AM EST - 08/24/2020 09:30:00 AM EST [facility] ([facility]) Attender: BRITTANY BARFIELD NP 08/24/2020 12:00:00 AM EST [facility] ([facility]) Outpatient Attender: BRITTANY BARFIELD NP [facility] Kodi kemp 07/27/2020 09:00:00 AM EST - 07/27/2020 09:00:00 AM EST [facility] ([facility]) Attender: BRITTANY BARFIELD NP 07/27/2020 12:00:00 AM EST [facility] ([facility]) Outpatient Attender: DIETER GIBSON MDReferrer: DIETER Rose MD 07/05/2020 12:00:00 AM [facility] Outpatient Attender: HASMUKH [facility] 05/23/2020 01:10:01 PM ED T [facility] Outpatient Attender: BRTITANY BARFIELD NP [facility] l 05/19/2020 02:00:00 AM EDT - 05/19/2020 02:00:00 AM EDT [facility] ([facility]) Attender: BRITTANY BARFIELD NP 05/19/2020 12:00:00 AM EDT [facility] ([facility]) Outpatient Attender: HASMUKH [facility] 05/18/2020 11:56:01 AM ED T [facility] Outpatient Attender: BRITTANY BARFIELD NP [facility] 05/18/2020 03:00:00 AM EDT - 05/18/2020 03:00:00 AM EDT [facility] ([facility]) Attender: BRITTANY BARFIELD NP 05/18/2020 12:00:00 AM EDT [facility] ([facility]) [facility]: [facility] 04/13/2020 11:19:01 AM ED T [facility] Outpatient Attender: DIETER GISBON MD [id number] 04/12/2020 12:00:00 AM T [facility] Inpatient Attender: DIETER GIBSON MDAd mitter: DIETER GIBSON MDReferrer: DIETER GIBSON MD [id number] 03/14/2020 07:55:53 AM EDT - 03/16/2020 01:56:00 PM EDT Cerebral aneurysm, nonruptured [facility] Cerebral aneurysm, nonruptured Patient discharged. [facility]patient [facility] 03/10/2020 10:41:01 AM ED T [facility] Outpatient Attender: [facility]KH [facility] 03/10/2020 10:17:01 AM ED T [facility] Outpatient Attender: DEFAULT / GENE WILDER / UNKNOWN PROVIDER ALIASES Attender: MARQUEZ FLOODReferrer: ADRIANA RIOS [id number] 12:00:00 AM EDT - 03/11/2020 12:00:00 AM EDT [facility] Outpatient Attender: ADRIANA RODRIGUEZ PAAt tender: Maris Cortes MDReferrer: DIEETR GIBSON MD 03/10/2020 12:00:00 AM EDT pretest [facility] pretest Outpatient Attender: HASMUKH CHADWICK 03/09/2020 03:07:00 PM ED T [facility] 03/09/2020 03:06:00 PM ED T [facility] Outpatient [facility]: [facility] 03/09/2020 02:10:01 PM ED T [facility] Outpatient Attender: HASMUKH LEVY 03/08/2020 09:43:00 AM ED T [facility] Outpatient Attender: HASMUKH CHADWICK 03/07/2020 02:06:01 PM ED T [facility] Outpatient Attender: DIETER GIBSON MD 02/23/2020 12:00:00 AM [facility] Outpatient Attender: DIETER GIBSON MD [id number] 02/01 12:00:00 AM EDT - 02/02/2020 10:25:24 AM [facility] Outpatient Attender: HASMUKH LEVY 01/29/2020 11:58:00 AM ED T [facility] Outpatient Attender: HASMUKH CHADWICK 01/28/2020 03:52:01 PM ED [facility] Outpatient Attender: HASMUKH LEVY 01/27/2020 12:02:10 AM ED T [facility] Outpatient Attender: DIETER GIBSON MDAt tender: EDWARD HIDALGO MDAttender: PALMA De La Cruzender: CRISTOBAL CABAAttender: FABIANA MURRAYAdmitter: DIETER GIBSON MDReferrer: DIETER GIBSON MD [id number] 01/26/2020 12:00:00 AM EDT - 01/26/2020 02:20:00 PM EDT Cerebral aneurysm, nonruptured [facility] Cerebral aneurysm, nonruptured Patient discharged. Outpatient Attender: DEFAULT / GENE WILDER / UNKNOWN PROVIDER ALIASES Attender: ESPERANZA PRICEReferrer: DIETER GIBSON MD [id number] 01/04 12:00:00 AM EDT - 01/24/2020 12:00:00 AM [facility] Outpatient [facility]IDA [facility] 01/20/2020 11:16:03 AM ED T [facility] Outpatient Att[facility]IDA [facility] 01/20/2020 11:16:01 AM ED [facility] Outpatient Attender: [facility]ANDIDA [facility] 01/20/2020 11:15:02 AM ED T [facility] Outpatient Attender: [facility] 01/20/2020 11:15:01 AM ED [facility] Outpatient Attender: BRITTANY BARFIELD NP [facility] 12/23/2019 03:30:00 AM EDT - 12/23/2019 03:30:00 AM EDT [facility] ([facility]) Attender: BRITTANY BARFIELD NP 12/23/2019 12:00:00 AM EDT [facility] ([facility]) Outpatient Attender: [facility] 12/16/2019 02:29:00 PM ED [facility] Outpatient Attender: [facility] 11/25/2019 12:10:01 PM ED [facility] Brief Individual Psychotherapy - 30 min Attender: Zohra Guerra [facility] 11/25/2019 02:00:00 AM EDT - 11/25/2019 02:00:00 AM EDT [facility] ([facility]) Attender: Zohra Henry 11/25/2019 12:00:00 AM E DT [facility] ([facility]) Outpatient 11/18/2019 12:00:00 AM [facility] Outpatient Attender: DIETER GIBSON MDReferrer: RONALD MENDOZA 11/05/2019 12:00:00 AM [facility] Outpatient Attender: [facility]KH [facility] 10/14/2019 02:44:02 PM ED [facility] Outpatient [facility] 10/14/2019 12:06:01 PM ED T [facility] Outpatient Attender: HASMUKH LAGUNAS FP 10/13/2019 10:57:00 AM ED T [facility] Outpatient Attender: HASMUKH LAGUNAS FP 10/12/2019 02:44:03 PM ED T [facility] Outpatient Attender: HASMUKH LEVY FP 10/12/2019 11:17:01 AM ED T [facility] Outpatient Attender: HASMUKH LEVY FP 10/12/2019 10:57:00 AM ED T [facility] Outpatient Attender: HASMUKH LAGUNAS FP 10/12/2019 10:56:00 AM ED T [facility] Outpatient Attender: HASMUKH LAGUNAS FP 10/12/2019 10:51:00 AM ED T [facility] Outpatient Attender: HASMUKH JANNETH FP 10/12/2019 10:09:01 AM ED T [facility] Outpatient Attender: HASMUKH LAGUNAS FP 10/08/2019 10:30:01 AM ES [facility] Outpatient Attender: JOSE GARCIA MD [id number] 10/06 12:00:00 AM EST - 10/07/2019 03:47:30 PM EST hosp [facility] Outpatient Attender: BRITTANY BARFIELD NP [facility] Kodi kemp 09/23/2019 03:30:00 AM EST - 09/23/2019 03:30:00 AM EST [facility] ([facility]) Attender: BRITTANY BARFIELD NP 09/23/2019 12:00:00 AM EST [facility] ([facility]) Outpatient Attender: HASMUKH JANNETH FP 09/14/2019 02:03:01 PM ES [facility] Outpatient Attender: HASMUKH JANNETH FP 09/14/2019 02:02:01 PM ES [facility] Outpatient Attender: HASMUKH JANNETH FP 09/03/2019 11:21:47 AM ES [facility] Outpatient Attender: BRITTANY BARFIELD NP [facility] Kodi kemp 08/26/2019 11:30:00 AM EST - 08/26/2019 11:30:00 AM EST [facility] ([facility]) Attender: BRITTANY BARFIELD NP 08/26/2019 12:00:00 AM EST [facility] ([facility]) Outpatient 08/19/2019 12:00:00 AM [facility] Functional Status Medications Medication Brand Name [...] 05/19/2020 12:00:00 AM EDT 2 mg completed [id number] nicotine (polacrilex) in [facility] 05/19/2020 08/17/2020 four times a day 30 2 mg gum [id number] 4 Brittany Barfield [id number] Psychiatric/Mental Health [facility] ([facility]) 24 HR Bupropion Hydrochloride 150 [...] A WEEK SOLD: 06/21/2020 [facility] Cholecalciferol 91143 UNT Oral Capsule v itamin D (CHOLECALCIFEROL) capsule 50,000 Units vitamin D (CHOLECALCIFEROL) capsule 50,000 Units 03/20 09:00:00 AM EDT 06957 U Oral active 50,000 Units, Oral, Every 7 days, First dose on 03/20/20 at 0900, For 30 days [facility] Medication administered onsite Aspirin 81 MG Chewable Tablet Aspirin 81 MG Oral Table t Chewable Aspirin 81 MG Oral Tablet Chewable 03/17/2020 12:00:00 AM EDT 81 mg Oral active Chew 1 tablet by Mouth daily [facility] Aspirin 81 MG Chewable Tablet Aspirin 81 MG Oral Table t Chewable Aspirin 81 MG Oral Tablet Chewable 03/17/2020 12:00:00 AM EDT 81 mg Oral aborted Chew 1 tablet by Mouth daily [facility] Acetaminophen 325 MG Oral Tablet Acetaminophen 325 MG Oral T ablet 03/16/2020 12:00:00 AM EDT 650 mg Oral active Take 2 tablets by mouth every 6 (six) hours as needed for Pain for up to 10 days [facility] Magnesium Hydroxide 80 MG/ML Oral Suspen terrance Magnesium Hydroxide 400 MG/5ML Oral Suspension (MILK OF MAGNESIA) Magnesium Hydroxide 400 MG/5ML Oral Susp ension (MILK OF MAGNESIA) 03/16/2020 12:00:00 AM EDT 45 mL Oral active Take 45 mLs by mouth daily as needed for Constipation for up to 5 days [facility] heparin (porcine) 5000 UNIT/ML injection 5,000 Units [id number] 03/15/2020 09:00:00 PM EDT 5000 U Subcutaneous active 5,000 Units, Subcutaneous, 2 Times Daily, First dose on Sat03/15/20 at 2100, For 30 days [facility] Medication administered onsite potassium chloride (K-DUR) dissolvable tablet 40 mEq 78808-2 [id number] 03/15/2020 09:15:00 AM EDT 40 meq Oral completed 40 mEq, Oral, Once, Sat03/15/20 at 0915, For 1 dose
May be dissolved in water for patients with a G-Tube or unable to swallow. If concern for clogging G-Tube, may contact Pharmacy to switch formulation to a powder packet.
[facility] Medication administered onsite Aspirin 81 MG Chewable Tablet aspirin chewable tablet 81 mg aspirin chewable tablet 81 mg 03/15/2020 09:00:00 AM EDT 81 mg Oral activ e 81 mg, Oral, Daily Standard, First dose on Sat03/15/20 at 0900, For 30 days
Chew tablet before swallowing.
[facility] Medication administered onsite Oxycodone Hydrochloride 5 [...] only) require Pain Service consultation and approval.
[facility] Medication administered onsite sodium chloride (preservative [...] For 30 days, Pre-op [Order 6 End] [facility] Medication administered onsite Ticagrelor 90 MG Oral Tablet Ticagrelor 90 MG Oral Tab let (BRILINTA) Ticagrelor 90 MG Oral Tablet (BRILINTA) 03/15/2020 12:00:00 AM EDT 90 mg Oral active Take 1 tablet by mouth Two Times Daily [facility] atorvastatin 40 MG Oral Tablet atorvastatin (LIPITOR) tablet 40 mg atorvastatin (LIPITOR) tablet 40 mg 03/14/2020 10:00:00 PM EDT 40 mg Oral active 40 mg, Oral, Nightly, First dose on Sat03/14/20 at 2200, For 30 days [facility] Medication administered onsite Magnesium Hydroxide 80 MG/ML Oral Suspen terrance magnesium hydroxide (MILK OF MAGNESIA) 400 MG/5ML suspension 45 mL magnesium hydroxide (MILK OF MAGNESIA) 4 00 MG/5ML suspension 45 mL 03/14/2020 10:00:00 PM EDT 45 mL Oral active 45 mL, Oral, Nightly, First dose on Sat03/14/20 at 2200, For 30 days
If serum creatinine > 2 notify provider before administering.
[facility] Medication administered onsite 24 HR Bupropion Hydrochloride 150 MG Ext ended Release Oral Tablet buPROPion (WELLBUTRIN XL) 24 hr tablet 150 mg buPROPion (WELLBUTRIN XL) 24 hr tablet 1 50 mg 03/14/2020 10:00:00 PM EDT 150 mg Oral active 150 mg, Oral, Nightly, First dose on Sat03/14/20 at 2200, For 30 days
Do not crush or chew
[facility] Medication administered onsite gabapentin 300 MG Oral Capsule gabapentin (NEURONTIN) capsule 300 mg gabapentin (NEURONTIN) capsule 300 mg 03/14/2020 10:00:00 PM EDT 300 mg Oral active 300 mg, Oral, Nightly, First dose on Sat03/14/20 at 2200, For 30 days [facility] Medication administered onsite venlafaxine (EFFEXOR-XR) 24 hr capsule 225 mg 03/14/20 10:00:00 PM EDT 225 mg Oral active 225 mg, Or al, Nightly, First dose on Sat03/14/20 at 2200, For 30 days
Do not crush or chew
[facility] Medication administered onsite Ticagrelor 90 MG Oral Tablet ticagrelor (BRILINTA) tab let 90 mg ticagrelor (BRILINTA) tablet 90 mg 03/14/2020 09:00:00 PM EDT 90 mg Oral active 90 mg, Oral, 2 Times Daily, First dose on Sat03/14/20 at 2100, For 30 days [facility] Medication administered onsite buspirone hydrochloride 5 MG Oral Tablet busPIRone (BU SPAR) tablet 15 mg busPIRone (BUSPAR) tablet 15 mg 03/14/2020 09:00:00 PM EDT 15 mg O ral active 15 mg, Oral, 2 Times Daily, First dose on Sat03/14/20 at 2100, For 30 days [facility] Medication administered onsite Acetaminophen 325 MG [...] mg from all sources in 24 hours.
[facility] Medication administered onsite Oxycodone Hydrochloride 5 MG Oral Tablet oxyCODONE (ROXICODONE) immediate release tablet 10 mg oxyCODONE (ROXICODONE) immediate release tablet 10 mg 03/14/2020 05:14:49 PM EDT 10 mg Oral active 10 mg, Oral, Every 4 hours PRN, Severe Pain (Pain Scale Score 7-10), Starting Sat03/14/20 at 1714, For 3 days
If no [employer] or when [employer] has been D/Cd.
Oxycodone immediate release is limited to 10 mg per dose. Higher doses ( only) require Pain Service consultation and approval.
[facility] Medication administered onsite 4 ML Labetalol hydrochloride 5 MG/ML [facility] labetalol (TRANDATE) injection 20 mg labetalol (TRANDATE) injection 20 mg 03/14/2020 05:14:33 PM EDT 20 mg Intravenous active 20 mg, Intrav enous, Every 4 hours PRN, High Blood Pressure, MAP more than 90 mmHg, Starting Sat03/14/20 at 1714, For 30 days
Hold for HR less than 60 bpm.
[facility] Medication administered onsite Bisacodyl 10 MG Rectal Suppository bisacodyl (DULCOLAX ) suppository 10 mg bisacodyl (DULCOLAX) suppository 10 mg 03/14/2020 05:14:33 PM EDT 10 mg Rectal active 10 mg, Rectal, Every 72 hours PRN, Constipation, Starting 03/14/20 at 1714, For 30 days
Hold if patient has had BM within the past 2 days.
[facility] Medication administered onsite sennosides, [facility] 35.2 MG/ML Oral Solution senna (SENOKO T) syrup 10 mL senna (SENOKOT) syrup 10 mL 03/14/2020 05:14:33 PM EDT 10 mL Oral active 10 mL, Oral, Nightly PRN, Constipation, Starting Sat03/14/20 at 1714, For 30 days [facility] Medication administered onsite fentaNYL (SUBLIMAZE) (PF) injection 25 mcg [id number] 03/14/2020 05:14:33 PM EDT 25 ug Intravenous aborted 25 m cg, Intravenous, Every 2 hours PRN, Other, breakthrough pain, Starting Sat03/14/20 at 1714, For 3 days [facility] Medication administered onsite sennosides, [facility] 8.6 MG Oral Tablet senna tablet 2 tablet sen na tablet 2 tablet 03/14/2020 05:14:33 PM EDT 2 {tbl} Oral active 2 tablet, Oral, Nightly PRN, Constipation, Starting 03/14/20 at 1714, For 30 days [facility] Medication administered onsite Ticagrelor 90 MG Oral Tablet ticagrelor (BRILINTA) tab let 180 mg ticagrelor (BRILINTA) tablet 180 mg 03/14/2020 04:30:00 PM EDT 180 mg Oral completed 180 mg, Oral, Once, Sat03/14/20 at 1630, For 1 dose [facility] Medication administered onsite NaCl infusion 0.9 % 9017-9704-72 03/14/2020 04:15:00 PM EDT Intravenous aborted at 100 mL/hr, Intrav enous, Continuous, Starting Sat03/14/20 at 1615, For 2 days [facility] Medication administered onsite verapamil (ISOPTIN) in NaCl 0.9 % injection 1 mg/mL (IR use only) 03/14/2020 12:18:10 PM EDT completed Code/Trauma Medication, Starting Sat03/14/20 at 1218 [facility] Medication administered onsite Nitroglycerin 5 MG/ML Injectable Solution nitroglyceri n injection nitroglycerin injection 03/14/2020 12:09:43 PM EDT complete d Code/Trauma Medication, Starting Sat03/14/20 at 1209 [facility] Medication administered onsite lidocaine (XYLOCAINE) 2 % injection 4610-1451-24 03/14/2020 12:09:21 PM EDT completed Code/Trauma Medicati on, Starting Sat03/14/20 at 1209 [facility] Medication administered onsite Lidocaine 40 MG/ML Topical Cream lidocaine (LMX) 4 % c ream lidocaine (LMX) 4 % cream 03/14/2020 09:30:00 AM EDT Topical completed Topical, Once, Sat03/14/20 at 0930, For 1 dose
Apply to right wrist MDD = 4 applications
[facility] Medication administered onsite 300 mg 03/10/2020 [...] Capsule (NEURONTIN) 01/27/2020 12:00:00 AM EDT aborted [facility] Acetaminophen 325 MG Oral Tablet acetaminophen (TYLENO L) tablet 650 mg acetaminophen (TYLENOL) tablet 650 mg 01/26/2020 02:00:00 PM EDT 65 0 mg Oral completed 650 mg, Oral, O nce, Sat01/26/20 at 1400, For 1 dose
Maximum daily dose of acetaminophen is 3,000 mg from all sources in 24 hours.
[facility] Medication administered onsite protamine injection 23387-899-07 01/26/2020 12:12:32 PM EDT completed Code/Trauma Medication, Starting 01/04 at 1212 [facility] Medication administered onsite 4 ML Verapamil hydrochloride 2.5 MG/ML Injection verap jose g (ISOPTIN) injection verapamil (ISOPTIN) injection 01/26/2020 11:18:00 AM EDT completed Code/Trauma Medication, Starting Sat01/26/[address] [facility] Medication administered onsite 1 ML heparin sodium, porcine 1000 UNT/ML Injection heparin (porcine) 1000 units/mL injection heparin (porcine) 1000 units/mL injection 01/26/2020 1 1:14:54 AM EDT completed Code/T rauma Medication, Starting Sat01/26/20 at [facility] Medication administered onsite Nitroglycerin 5 MG/ML Injectable Solution nitroglyceri n injection nitroglycerin injection 01/26/2020 11:12:43 AM EDT complete d Code/Trauma Medication, Starting Sat01/26/[address] [place] [address] Medication administered onsite lidocaine (XYLOCAINE) 2 % injection 2796-9616-41 01/26/2020 11:12:33 AM EDT completed Code/Trauma Medicati on, Starting Sat01/26/[address] [place] [address] Medication administered onsite 2 ML Midazolam 1 MG/ML Injection midazolam (PF) (VERSE D) injection midazolam (PF) (VERSED) injection 01/26/2020 11:00:38 AM EDT completed Code/Trauma Medication, Starting Sat01/26/[address] [place] [address] Medication administered onsite fentaNYL (SUBLIMAZE) (PF) injection 6252-5769-08 01/26/2020 11:00:33 AM EDT completed Code/Trauma Medicati on, Starting Sat01/26/[address] [place] [address] Medication administered onsite Lidocaine 40 MG/ML Topical Cream lidocaine (LMX) 4 % c ream lidocaine (LMX) 4 % cream 01/26/2020 10:00:00 AM EDT Topical completed Topical, Once, Sat01/26/20 at 1000, For 1 dose
Apply to right wrist and snuffbox with tegaderm
Pre-op [facility] Medication administered onsite Nicotine 2 MG Chewing Gum nicotine polacrilex (NICORET TE) 2 MG gum nicotine polacrilex (NICORETTE) 2 MG gum 12/28/2019 12:00:00 AM EDT 2 mg O ral active Take 2 mg by mouth as needed [facility] buspirone hydrochloride 15 MG Oral Table t busPIRone HCl 15 MG Oral Tablet (BUSPAR) busPIRone HCl 15 MG Oral Tablet (BUSPAR) 12/28/2019 12:00:00 AM EDT aborted [facility] 14 mg/24 hr 12/24/2019 12:00:00 AM EDT [...] ONE PATCH TO THE SKIN EVERY DAY [facility] 75 mg 12/24/2019 12:00:00 AM EDT [...] MOUTH WEEKLY SOLD: 11/27/2019 [facility] Cholecalciferol 95108 UNT Oral Capsule V itamin D3 1.25 MG (60199 UT) Oral Capsule (CHOLECALCIFEROL) Vitamin D3 1.25 MG (78191 UT) Oral Capsu le (CHOLECALCIFEROL) 10/22/2019 12:00:00 AM EDT 70254 U Oral aborted Take 50,000 Units by mouth every 7 (seven) days TAKES ON MONDAYS [facility] buspirone hydrochloride 15 MG Oral Tablet [...] Oral Capsule (MINIPRESS) 09/27/2019 12:00:[address] [facility] 1 mg 09/27/2019 12:00:00 AM EST [...] onto the skin every 24 (twenty-four) hours [facility] Aspirin 81 MG Delayed Release Oral Table t Aspirin 81 MG Oral Tablet Delayed Release Aspirin 81 MG Oral Tablet Delayed Release 324 mg Oral aborted Take 324 [facility]ayer name Policy type / Coverage type Policy ID Covered republican ID Covered republican's relationship to shankar Policy Shankar Plan Information [facility] [id number] SP [id number] [facility] I [id number] Self [id number] Medicaid S [id number] S [id number] Managed Care - [facility] Community Plan P [id number] S [id number] [facility]) O [id number] S [id number] [facility] I [id number] Self [id number] Medicaid S [id number] S [id number] [facility] [id number] SP [id number] Managed Care - [facility] Community Plan P [id number] S [id number] Medicaid S [id number] S [id number] Managed Care - Community Plan [facility] P [id number] S [id number] Managed Care - Community Plan [facility] P [id number] S [id number] [facility] MCDO [id number] SP [id number] Managed Care - Community Plan [facility] P [id number] S [id number] Managed Care - Community Plan [facility] P [id number] S [id number] Medicaid S [id number] S [id number] Managed Care - Community Plan [facility] P UNAVAILABLE S UNAVAILABLE Medicaid S UNAVAILABLE S UNAVAILA BLE [facility] MCDO [id number] SP [id number] [facility](MCAID) O [id number] S [id number] MEDICAID [id number] SP [id number] Problems, Conditions, and Diagnoses Code Display Name Description Problem Type Effective Dates Data Source(s) R69. Illness, unspecified Illness, unspecified Condition 08/24/2020 12:00:00 AM EST [facility] ([facility]) F40.10 Social phobia, unspecified Social Anxiety Disord er (Social Phobia) Condition 08/24/2020 12:00:00 AM EST [facility] ([facility]) F33.0 Major depressive disorder, recurrent, mi ld Major Depressive Disorder, Recurrent episode, Mild Condition 08/24/2020 12:00:00 AM EST [facility] ([facility]) I67.1 Cerebral aneurysm, nonruptured Cerebral arterial aneur ysm 03/09/2020 02:08:11 PM EDT [facility] I67.1 Cerebral aneurysm, nonruptured Cerebral aneurysm, nonr uptured Diagnosis 03/15/2020 10:21:46 AM [facility] pretest pretest Diagnosis 03/10/2020 09:31:24 AM [facility] hosp fol hosp fol Diagnosis 10/07/2019 12:52:19 PM [facility] Surgeries/Procedures Procedure Description Date Indications Data Source(s) MHC Telemed E/M Lvl 3--Est pt 08/24/2020 12:00:00 AM EST - 08/24/2020 12:00:00 AM EST [facility] ([facility]) MHC Telemed E/M Lvl 3--Est pt 08/24/2020 12:00:[address] [facility] ([facility]) OFFICE OUTPATIENT VISIT 15 MINUTES 07/27 12:00:00 AM EST - 07/27/2020 12:00:00 AM EST [facility] ([facility]) OFFICE OUTPATIENT VISIT 15 MINUTES 07/27/2020 12:00:00 AM EST [facility] ([facility]) MHC Telemed E/M Lvl 3--Est pt 05/19/2020 12:00:00 AM EDT - 05/19/2020 12:00:00 AM EDT [facility] ([facility]) MHC Telemed E/M Lvl 3--Est pt 05/19/2020 12:00:00 AM E DT [facility] ([facility]) MHC Telemed E/M Lvl 3--Est pt 05/18/2020 12:00:00 AM EDT - 05/18/2020 12:00:00 AM EDT [facility] ([facility]) MHC Telemed E/M Lvl 3--Est pt 05/18/2020 12:00:00 AM E DT [facility] ([facility]) VERIFYNOW P2Y12 VERIFYNOW P2Y12 Routine 03/16/2020 12:28 PM EDT 03/16/2020 12:28:00 PM [facility] BLOOD COUNT COMPLETE AUTOMATED CBC Routine 03/16/2020 6:08 A M EDT 03/16/2020 06:08:00 AM EDT [facility] BASIC METABOLIC PANEL CALCIUM TOTAL BASIC METABOLIC PANEL Routi ne 03/16/2020 6:08 AM EDT 03/16/2020 06:08:00 AM EDT [facility] LAB US DOPPLER LOWER EXTREMITY [place]AL [place] [id number] [facility] LAB US DOPPLER LOWER EXTREMITY UNILATERAL ARTERIAL LTD [id number] Routine 03/15/2020 8:08 AM EDT 03/15/2020 08:08:[address] [facility] BLOOD COUNT COMPLETE AUTOMATED CBC Routine 03/15/2020 6:00 A M EDT 03/15/2020 06:00:00 AM EDT [facility] BASIC METABOLIC PANEL CALCIUM TOTAL BASIC METABOLIC PANEL Routi ne 03/15/2020 6:00 AM EDT 03/15/2020 06:00:[address] [facility] BLOOD COUNT COMPLETE AUTO&AUTO DIFRNTL WBC COUNT CBC AND DIFFER ENTIAL STAT 03/14/2020 4:15 PM EDT 03/14/2020 04:15:00 PM EDT [facility] BASIC METABOLIC PANEL CALCIUM TOTAL BASIC METABOLIC PANEL STAT 03/14/2020 4:15 PM EDT 03/14/2020 04:15:00 PM EDT U [facility] POCT ISTAT ACT POCT ISTAT ACT Routine 03/14/2020 3:14 PM EDT 03/14/2020 03:14:00 PM EDT [facility] POCT ISTAT ACT POCT ISTAT ACT Routine 03/14/2020 2:02 PM EDT 03/14/2020 02:02:00 PM EDT [facility] POCT ISTAT ACT POCT ISTAT ACT Routine 03/14/2020 1:40 PM EDT [facility]STAT ACT Routine 03/14/2020 1:17 PM EDT 03/14/2020 [facility] POCT ISTAT ACT Routine 03/14/2020 12:43 PM EDT 03/14/2020 12:43:00 PM EDT [facility] POCT ISTAT ACT POCT ISTAT ACT Routine 03/14/2020 12:15 PM EDT 03/14/2020 [facility] CREATININE POCT ISTAT CREATININE Routine 01/26/2020 10 :50 AM EDT 01/26/2020 02:50:00 PM EDT [facility] MHC Telemed E/M Lvl 3--Est pt 12/23/2019 12:00:00 AM EDT - 12/23/2019 12:00:00 AM EDT [facility] ([facility]) MHC Telemed E/M Lvl 3--Est pt 12/23/2019 12:00:00 AM E DT [facility] ([facility]) Brief Individual Psychotherapy - 30 min 11/25/2019 12:00:00 AM EDT - 11/25/2019 12:00:00 AM EDT [facility] ([facility]) Brief Individual Psychotherapy - 30 min 11/25/2019 12: 00:00 AM EDT [facility] ([facility]) OFFICE OUTPATIENT VISIT 15 MINUTES 09/23 12:00:00 AM EST - 09/23/2019 12:00:00 AM EST [facility] ([facility]) OFFICE OUTPATIENT VISIT 15 MINUTES 09/23/2019 12:00:00 AM EST [facility] ([facility]) OFFICE OUTPATIENT VISIT 10 MINUTES 08/26 12:00:00 AM EST - 08/26/2019 12:00:00 AM EST [facility] ([facility]) OFFICE OUTPATIENT VISIT 10 MINUTES 08/26/2019 12:00:00 AM EST [facility] ([facility]) Results ID Date Data Source [id number] 04/12/2020 09:48:57 AM EDT [facility] Name Value Range Interpretation Code Description Data Samantha rce(s) Supporting Document(s) Progress Note [facility] AJDFYb4tYwPCDfPy45/QYPdzZNEwa0CdZMdfLEp9EZpaJLNdW1SiCVF7aO2gXJG4SCcDPfFeUmIoKMU2 lbm [file] avkyzvuaDlVbgujUYu54fcscFquxeR3Pwsro6veIPqf2Egjl385ZbCqGm96+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 [file] [employer]+Cs3XLMAhSPl5Z4F7DGGjBSf1B4BAT2OHVZSsWBdjWEmnDCEzLVf1P5U2FQDgU7QGX4Bprhqppw0+ KR5AA78QBHXyTPi2U9G5rUHdI5R1cNlWnBB1SK3UDD 4BiMe1yRItiZ1+FH3GK5YMEkThJJz4C2M8cPEpI5O8sXcMuSR2LK0RUE8LfZTwJTMlljYmWt9yU5ZAKH bXTqAULNM6QD9RiHYfBK2CtZGRL0WbzELoIq5kFRtcqCQlwU0cAn6aHKrqEI2ABqZEUKrXJFH1VZ6HpO RlLT4XjDJVF5FevDPvPy2pHCwvzMFaiz1+GW1LKRBf Fu7QFt2+PIuvtyDkPbxAJwM6CVMlx0AiSPi2LC5RDH6inRfaUID4Dy0BrNL5qYGbN8pDCC2QuHAwR08a jLVeCUOpXr5YIkN6yqMwcO2DJT50tPAjd2G0QBAvC4rdFDeez64oLDqvFQeIWC4mBNEAQLvlNPfaJPM1 BtFblozxXLKlPl4LVjJkAUq3vO9ojFA8VQS9FpbsyQ XgPTsaGePeEjTxEgY8uZyncjv8ULbePH0xVAaimqylWZDjRvo+AXjkBLJrIVBvHliEQMLmyY4aweI4db ScLDppaVHuUs9pe3q6OuijLt6vKp6zGBg5TjNaSrTyGDTuRh5vnN54ATftqlWkGj4ROsEqGPM9D0GbOp pSREY+EDxbPOiiyNg7lGZyKAZwVv3QEZVgBHCyZMQy ICAgICAgICAgICAgICAgICAgICAgICAgICAgICAgICAgICAgICAgICAgICAgICAgICAgICAgICAgICAg EHVuDNFjBPAoTVJmAEEvNQDnGRIjFWZpEYQnWYIwWK3HFAHrUTZxPJIkCARrONNcALCeHUAbVICmUDIs ICAgICAgICAgICAgICAgICAgICAgICAgICAgICAgIC ZwRTJlLORgYCMbMPCwDPOcCNVyRNZaDBPwPRAeAAQnXQEjRTHcRHSkST9RPMCkGSToYKUhIQGyVOVjPR AgICAgICAgICAgICAgICAgICAgICAgICAgICAgICAgICAgICAgICAgICAgICAgICAgICAgICAgICAgIC SnHURfWXPvTDZcIWQxBWBbLDVlOGNcCR3ZBCYhYZCh ICAgICAgICAgICAgICAgICAgICAgICAgICAgICAgICAgICAgICAgICAgICAgICAgICAgICAgICAgICAg MZIwDWWbODZiTQYjHMFrYONsTBRuDEGgNLHgPQKiWLQpLR1PPRRgXZSxWMNtUSNsOJQzELQtIJUfJTEe ICAgICAgICAgICAgICAgICAgICAgICAgICAgICAgIC IgCDOwYAQaYDJoIXRbHIRhRVEhNZQnDEAlAXRiLTRiFEWoFIYmELHsGTQsBS6GXYLuNBQeTMFrWFEfRX AgICAgICAgICAgICAgICAgICAgICAgICAgICAgICAgICAgICAgICAgICAgICAgICAgICAgICAgICAgIC BsABLuJPXaTCNyBVRtCEEgYMDrIKDeDPCcYZ5FHPZn ICAgICAgICAgICAgICAgICAgICAgICAgICAgICAgICAgICAgICAgICAgICAgICAgICAgICAgICAgICAg HXOdMXLzVJEcIVWeIVKrGOWdJLIhVKPyZUIhXLOaCZBtXBGyIX4AXLFrHWSgCEPoDIEgEASuMNRySMLw ICAgICAgICAgICAgICAgICAgICAgICAgICAgICAgIC MwVZFhWRPkEUHtVACrAUSkGRGuYCPvGSBeQOHaUBDdQJJnSAZmFCDtIMTyNSDiQI1LSOZqIKChRUMpVB AgICAgICAgICAgICAgICAgICAgICAgICAgICAgICAgICAgICAgICAgICAgICAgICAgICAgICAgICAgIC JmTAIfZNAeHLBcXGEpSRSmDWFpOZPqKCOdSQIoUO0O ICAgICAgICAgICAgICAgICAgICAgICAgICAgICAgICAgICAgICAgICAgICAgICAgICAgICAgICAgICAg ZLSgROVmBNAkBQOjAPNiHIYxJLMvDCTrUXHrPYMnXSNeVYEgTNDvVH1XTL45iNUun4C2RVTuAT4ofnd/ Go7IJYsyqzPebOFaQW2NMnLhFM3oxc7WCnKsVR9ujl 5YQTkEIaRsO1U0nRQuYHPsUGTTZbEhG93zMIksYc18PCgwOWZcUmQcBPn0Ju3CVwYwS0acJBKuOlY5LL KoOaL2VIDyRkIrLOoeEU3Xq0WlaNLwRBv+Qe4IHS2bc2PuPVlhWmGyCO5jro2YDGuIMnFyW9LvuzN8ZC C7XLWcXx4WXPBpKXMopAWqXRCsSXXPCwJfH0TeoW48 IDENCj4+UPjxkiIeMhaUPmW3CPEai1UeAZq5HG9GQXGjJHa1hOWdUSQvF8Jvg0XlHo94CGWyBmypI2Bk yGAaFBGEDKcwzFwyGBKDSBCceAE1ImbrVfPdRVVaDXnoRATXBFjZJhFcY5Vjc8SlRbH1ODQbAkYtCFci HQYdKlW3QR24yDlySC3XCCOwGYAaTD06GMP4QGYwGl 1RJd8TLzUvOQ6axl4XOdlpMTUnHmzAOzg0YNrlTR7XbORxB7XitKMww5zYArRpJ7TMJFJ0AYQrXy2LUY HbRaZwJDHiKMzoJG6wHLLoDSTClEvujpB8QN1VSK2qxtGuYG7LAlJsMw7wMb7VZmKcB4VoY3GdLAHrVJ CSQCybVJ1RRVgwTG5rQT7Wj5DSzYNkiV3nmb5XBNVt FKYuDatjnk2QKkfmF9W4aMovSFLsWailDIIMMKihFS0HTGCtMCE3CYQhMnWvVUNLWrHnD13vSS4HA2Dw h39zIqU8DPXbWyGzEUsrFD64pTajmaKlbPHyuZeiJE3JRx8+DQplbmRvYmoNCnhyZWYNCjAgMzANCjAw NQFiHOAmAWIhNbY4MoRbPr7SGDQqYHYxWVRvIxTmFT FqKCBnXPblFTIyEYV5VrE6QDQaINPtSY3GGxEzJGClUhX6FXSmMMFwABSxmn2IFCLvBKHgVTL7YdVzGA ZtISAbXPjaIHXqVLH7PQg1UOKbEELqFA5IIfBpEUNaQFBqROVkAOOyOBYylv7OYADgFZMlBcf5AfEfGL GvRRGzOAzrLDNzKPA4FZeqBGCuVYTeTG2BBdSwPNYq ZVahGGQuYLFsZAJuyz7OMRYbBTZzSLMqDdKfZUMpCMEbQCgwOXMkYUS8KLV9JMSoUXVrDU1UTpYdOVBp IEezXhPmEBRiEPNont0VOITlUVXcMBI2LYBxFPPmPMJoZJjbTBHkIQL3JuT0RHCmOERwRA6QTuEeMIXa WqSwTIVbLXKxYRGnns9YBUBgQSBeTLNmRLPuPXXnOL OvHKqgXDIiQYLvJrXzCIAmPEBvOA3KCcOnUDPnBkF9OYOaCCZmZOEbyb7MGKYbUJUvToJbEbEwWSPsPO RxGHeqNUPqDLJnATfvGMDhPBYzTO9WHuIrZKVgAnFdCHGdVMIcUOXiym1CADYmUQQtVzHrYwFzTVJtST VsAYaoOOXiUGO5AkF6NUCmASNcDP6BSiIwGTVuUsA6 JFRmEGVhVDHxln6FEUXrYQRwPZeyBhFxADWhALFjHEijRPFcJOI1DZE2ZNHoWWBoVX8GFbBcPPSoEjF4 ZVzdCKFwSNYuvm9HFJTqQQLeGrV5LDBzOBSiRVRwKYzjOHDzBUJ5JNP0KBZlRFAuRM1CCuOgXUsqWOOX Qac8CAxuI9g5PZRtFY3SA5Snr3YwUklgNBKBUZyvYW 2oehZfYDZhGj8FZ0gJJvv8MmK7EbDpXmEcLyGkQBD4BzHjCOEvJuLeY1YtG5ViPM3rBCD9HOjgBNYzV1 Y5OuJgRcLdLuNdVLPkLjL1NyXkHTNaSsFoXA1RKg8XFyA9VQI4zGOcQd9EEomjGyQDRlUbZZ0VYOt= ID Date Data Source [id number] 03/31/2020 10:05:18 AM EDT [facility] IR ARTERIOGRAM CEREBRALFINAL RESULTInter preted by:Dieter Gibson, [...] carotid artery angiogram9. Right common femoral artery dyxerqbst94. Supervision and interpretationSurgeon: Dieter Gibson M.D.Customer Support Associate: Tatiana Duong M.D.Anesthesia: General endotracheal anesthesia with [...] in standard sterile fashion, and we underwent [facility] standard timeout for patient and site verification [...] was accessed using micropuncture technique. A 6 Egyptian radial glide sheath was placed using Seldinger [...] administered for thromboembolic prophylaxis. Subsequently, a 5 Egyptian Tate 2 glide catheter was advanced through [...] common femoral artery was accessed. A 6 Egyptian 80 cm shuttle sheath was placed into the abdominal aorta over the 038 Glidewire using Seldinger technique. The sheath was secured in place with Steri-Strips, it was back bled and flushed and connected to a continuous heparinized pressurized bag of saline at a slow constant drip rate. Subsequently, a 5 Egyptian Berenstein catheter was advanced through the shuttle [...] ACT confirmed therapeutic anticoagulation, a Amanda 5 Egyptian 125 cm distal access catheter was navigated [...] previously positioned. They were advanced over an [place] SL 10 straight microcatheter and synchro 2 [...] this vessel is maintained. Subsequently, a Neuroform Deep Water 4 mm x 21 mm intracranial stent/aneurysm [...] shuttle sheath was exchanged for a 6/7 citizen of [place] Mynxgrip closure device, and hemostasis was obtained. [...] rce(s) Supporting Document(s) ID Date Data Source [id number] 03/18/2020 06:44:47 PM EDT [facility] Name Value Range Interpretation Code Description Data Samantha rce(s) Supporting Document(s) Discharge Summary [facility] LLYDDv0kPpDEBmKn78/FTVbyXYXrs1YnESilQZq7FNudEDKbY4FsYWY3dX6tACT3DRzDOlWnSjRfEHV6 lbm [file] AgICAgICAgICAgICAgICAgICAgICAgICAgICAgICAgICAgICAgICAgICAgICAgICAgICAgICAgICAgIC AgICAgICAgICAgICAgICAgICAgICAgICAgICAgICAgDQogICAgICAgICAgICAgICAgICAgICAgICAgIC AgICAgICAgICAgICAgICAgICAgICAgICAgICAgICAg ICAgICAgICAgICAgICAgICAgICAgICAgICAgICAgICAgICAgICAgICAgDQogICAgICAgICAgICAgICAg ICAgICAgICAgICAgICAgICAgICAgICAgICAgICAgICAgICAgICAgICAgICAgICAgICAgICAgICAgICAg ICAgICAgICAgICAgICAgICAgICAgICAgDQogICAgIC AgICAgICAgICAgICAgICAgICAgICAgICAgICAgICAgICAgICAgICAgICAgICAgICAgICAgICAgICAgIC AgICAgICAgICAgICAgICAgICAgICAgICAgICAgICAgICAgDQogICAgICAgICAgICAgICAgICAgICAgIC AgICAgICAgICAgICAgICAgICAgICAgICAgICAgICAg ICAgICAgICAgICAgICAgICAgICAgICAgICAgICAgICAgICAgICAgICAgICAgDQogICAgICAgICAgICAg ICAgICAgICAgICAgICAgICAgICAgICAgICAgICAgICAgICAgICAgICAgICAgICAgICAgICAgICAgICAg ICAgICAgICAgICAgICAgICAgICAgICAgICAgDQogIC AgICAgICAgICAgICAgICAgICAgICAgICAgICAgICAgICAgICAgICAgICAgICAgICAgICAgICAgICAgIC AgICAgICAgICAgICAgICAgICAgICAgICAgICAgICAgICAgICAgDQogICAgICAgICAgICAgICAgICAgIC AgICAgICAgICAgICAgICAgICAgICAgICAgICAgICAg ICAgICAgICAgICAgICAgICAgICAgICAgICAgICAgICAgICAgICAgICAgICAgICAgDQogICAgICAgICAg ICAgICAgICAgICAgICAgICAgICAgICAgICAgICAgICAgICAgICAgICAgICAgICAgICAgICAgICAgICAg ICAgICAgICAgICAgICAgICAgICAgICAgICAgICAgDQ ogICAgICAgICAgICAgICAgICAgICAgICAgICAgICAgICAgICAgICAgICAgICAgICAgICAgICAgICAgIC KpIRKbPPCuQOWvAMEsIHFbBGBtSFNxBKFkRJLbIJEdFSOsOFEvHVHwEWl0S9cuQHRuMANiZI3dJYs5Lr 8+ZVjTPdHaQKY5ahOinI7THD4uw1DeXPfvDCSpz4Ad QIj3PB8EHMSoZHukFN7NIBdcpl3BMWZnIFAlcFOEn4faCbZbZCA5LYOuNmobMC4XACEbH2kaloZfUCOl FYMTVZvwYCVFLOdaEJBHHABzPZRuJgZzZbYfTFYcHX7BGVEzZ278enVaTS3JAl2PIvEmAH5cvz3PTjCw PBTrImtCNnv7DMwwQR5KiRGgiBIhWrCxMHKCGwGrQ0 whd3WwEwEiAEKLZNhjVA0Zs3GakSKiCHr+Ik1WCC4fm4VmDYtiFbJjRT1bux5WYTqBAtCsD8FfvAyiQT Ybx1VdPNMrCODPcJ8qMSO4WPQ5CKGgrIEzGAHkOKcdwU61jXhsWYHgXVXsAK7nAp5eTRVgWHBfOdH8XV REHM2EAULiMDWgvLOeHWLbLOIYBA6XQYjiTXB2WYZd eiPdpOGoLUrrPV9FGYAwbhVxVbYhZVVOVSz+Uh0VTT3oz6YxMImcBkEdLL8arw8TSWyGPgWvL7E9rZTg W7J9ASpbGu4FPHUjQMBwXpKrHYXNELjeMK2QHD8prvP7TY4EvUGiKAVuWTKwkUYlJNe6D16xsVXtSPnl YP5YSWN+Lincoln+Hs5BHHOeFXOwXNLhZwXfOVGYQyMwT2 DtD9MDz6NqM7RjMU15vDnypzZrRLtiZF5PDJ5hNRMhHUMDHF1OpWCbvI6burZfFGCcDIQFXsGdJ68onW JwUBOcGDV3GHFwTh8YWBBnU8BsozYiyMokqtUwQRYaOMVXWT5LWMricaWnpLBtcOztDJ72oOqhNL8ULm 4XGmFaJR4lxj9JtRGhGs6YOSSsQP5TTNLwCNWgLCIc XCA4DJSjNhJnZGrxEGIePIScWKD6HSGlCDGfAW2EOxDfHOBwEdV6MFQxUXCvBWZzrg2RVEFkOUMoBrPq TLEnDLNqJJCtVWckXANmTYGoMCV8FSIvOUPaPW0OFmJcOZLkPOW4YxxsXGOnUOZnhq8TXDSaSMQrCFV7 NWHuWBIkWAAgGPtqQURaLDB7Dbx7GNFcRDEgZL7KXi NsAPYoIPE3WDkeWVKcJPThtm4LVVOpPBYfASVeDSOqUWZhFSBbTPueLOSjSHJcFTH0DEDeSKSgGF3HGz VnNGOmFCW2AApeXRAeFWLqtu8HCVJgIPHzQKHsKxMzCZQmDTKwMReoZNTnXVW1NsY0WPTwILZmVO2BQr NbLEZrNLg0PzRxIKRzYULpbp5IFKDtKXFsNXV3XjPm KDUaCXPzKIdjSSTwCQB9Sgp0IXYgZOXlMK8JYfIoTUPyPYf4PnFwIJXdGTDaow7MDKAiWOXuQKriOZJn BGRuAVQsRWzfMFKdFAQcVLKsYIAeXEKjYV4XGeIoZFFhHbSpRvVeLVOlLSOlqk2PAOEdOQIfULF0FYSx TGXnIVWaIYpwYUOrJOLlTmi3ZCHtGRVzCA6UDcGoHR SgJtJ0YgRvXYGzRCGicg0IJYAiFEZvPHo4GHXjCYRhKFNaZJycPCBiHLCvPXS6MCCpHSEaYQ7OFjGpAE UfYwY0VCllPBCfNMNmeq4ASQXaFAZjBnO7IgGiEUZiMATmMDz2cyKseABpQPy4XL9RH7NiddNqSvaTVj 8Ee308CXJ4RAXzHs9SR6kkOj9qRPUlYNKCIo7CCRo2 VLwzUnvmYtN7QPFhAHF2BGYvOsHeOMS4N4B3JDJhBvG+CNn1MAHnADOvUGidU9E2TcwzDTKgKXHbOFj7 KFGjQAT0Bx2aJSZLKu1+ISowsSTmjMptXWNVIfLjUHA7SMlwCDKEIa5J ID Date Data Source [id number] 03/16/2020 12:59:40 PM EDT [facility] Name Value Range Interpretation Code Description Data Samantha rce(s) Supporting Document(s) Platelet aggregation ADP induced [Units/volume] in Platelet rich plasma 22 PRU <208 [facility] (NOTE)<208 PRU Therapeutic range fo r P2Y12 nuwcurkhed580-271 PRU Low response to P2Y12 inhibitors ID Date Data Source [id number] 03/16/2020 06:30:18 AM [facility] Name Value Range Interpretation Code Description Data Samantha rce(s) Supporting Document(s) Leukocytes [#/volume] in Blood by Automated count 11.4 10*3/uL 4-10 H [facility] Erythrocytes [#/volume] in Blood by Automated count 3.51 10*6/uL 4.1- 5.3 L [facility] Hemoglobin [Mass/volume] in Blood 11.5 g/dL 11.5-15.5 [facility] Hematocrit [Volume Fraction] of Blood by Automated count 33.8 % 3 6-45 L [facility] Erythrocyte mean corpuscular volume [Entitic volume] by Auto mated count 96.2 fL 80-96 H [facility] Erythrocyte mean corpuscular hemoglobin [Entitic mass] by Automated count 32.9 pg 27-33 [facility] Erythrocyte mean corpuscular hemoglobin concentration [Mass/volume] by Automated count 34.2 g/dL 32.0-[facility] width [Ratio] by Automated count 13.0 % 11.5-14.5 [facility] Platelets [#/volume] in Blood by Automated count 275 10*3/uL 150-400 [facility] ID Date Data Source [id number] 03/16/2020 06:49:01 AM EDT [facility] Name Value Range Interpretation Code Description Data Samantha rce(s) Supporting Document(s) Bicarbonate [Moles/volume] in Serum 22 mmol/L 22-29 [facility] Chloride [Moles/volume] in Serum or Plasma 110 mmol/L 98-107 H [facility] Creatinine [Mass/volume] in Serum or Plasma 0.67 mg/dL 0.50-0.90 [facility] Glucose [Mass/volume] in Serum or Plasma 96 mg/dL 70-140 [facility] Potassium [Moles/volume] in Serum or Plasma 3.8 mmol/L 3.4-5.1 [facility] Hemolyzed Sodium [Moles/volume] in Serum or Plasma 143 mmol/L 136-145 [facility] Urea nitrogen [Mass/volume] in Serum or Plasma 9 mg/dL 6-20 [facility] Anion gap 3 in Serum or Plasma 11 mmol/L 8-15 [facility] Osmolality of Serum or Plasma by calculation 295 mosm/kg 275-300 [facility] Creatinine/Urea nitrogen [Mass Ratio] in Serum or Plasma 13 [facility] Calcium [Mass/volume] in Serum or Plasma 8.7 mg/dL 8.6-10.0 [facility] Glomerular filtration rate/1.73 sq M pre dicted among non-blacks [Volume Rate/Area] in Serum or Plasma by Creatinine-based formula (MDRD) >6 0 [facility] Glomerular filtration rate/1.73 sq M pre dicted among blacks [Volume Rate/Area] in Serum or Plasma by Creatinine-based formula (MDRD) >60 [facility] ID Date Data Source [id number] 03/15/2020 06:40:30 AM [facility] Name Value Range Interpretation Code Description Data Samantha rce(s) Supporting Document(s) Leukocytes [#/volume] in Blood by Automated count 10.4 10*3/uL 4-10 H [facility] Erythrocytes [#/volume] in Blood by Automated count 3.15 10*6/uL 4.1- 5.3 L [facility] Hemoglobin [Mass/volume] in Blood 10.4 g/dL 11.5-15.5 L [facility] Hematocrit [Volume Fraction] of Blood by Automated count 30.3 % 3 6-45 L [facility] Erythrocyte mean corpuscular volume [Entitic volume] by Auto mated count 96.0 fL 80-96 [facility] Erythrocyte mean corpuscular hemoglobin [Entitic mass] by Automated count 32.8 pg 27-33 [facility] Erythrocyte mean corpuscular hemoglobin concentration [Mass/volume] [facility] 34.2 g[facility].0[facility] width [Ratio] by Automated count 13.1 % 11.5-14.5 [facility] Platelets [#/volume] in Blood by Automated count 270 10*3/uL 150-400 [facility] ID Date Data Source [id number] 03/15/2020 06:58:24 AM EDT [facility] Hospital Name Value Range Interpretation Code Description Data Samantha rce(s) Supporting Document(s) Bicarbonate [Moles/volume] in Serum 22 mmol/L 22-29 [facility] Chloride [Moles/volume] in Serum or Plasma 110 mmol/L 98-107 H [facility] Creatinine [Mass/volume] in Serum or Plasma 0.61 mg/dL 0.50-0.90 [facility] Glucose [Mass/volume] in Serum or Plasma 102 mg/dL 70-140 [facility] Potassium [Moles/volume] in Serum or Plasma 3.1 mmol/L 3.4-5.1 L [facility] Sodium [Moles/volume] in Serum or Plasma 141 mmol/L 136-145 [facility] Urea nitrogen [Mass/volume] in Serum or Plasma 7 mg/dL 6-20 [facility] Anion gap 3 in Serum or Plasma 9 mmol/L 8-15 [facility] Osmolality of Serum or Plasma by calculation 290 mosm/kg 275-300 [facility] Creatinine/Urea nitrogen [Mass Ratio] in Serum or Plasma 11 [facility] Calcium [Mass/volume] in Serum or Plasma 7.9 mg/dL 8.6-10.0 L [facility] Glomerular filtration rate/1.73 sq M pre dicted among non-blacks [Volume Rate/Area] in Serum or Plasma by Creatinine-based formula (MDRD) >6 0 [facility] Glomerular filtration rate/1.73 sq M pre dicted among blacks [Volume Rate/Area] in Serum or Plasma by Creatinine-based formula (MDRD) >60 [facility] ID Date Data Source [id number] 03/14/2020 04:58:01 PM EDT [facility] Hospital Name Value Range Interpretation Code Description Data Samantha rce(s) Supporting Document(s) Leukocytes [#/volume] in Blood by Automated count 8.6 10*3/uL 4-10 [facility] Erythrocytes [#/volume] in Blood by Automated count 3.30 10*6/uL 4.1- 5.3 L [facility] Hemoglobin [Mass/volume] in Blood 10.5 g/dL 11.5-15.5 [facility] Hematocrit [Volume Fraction] of Blood by Automated count 32.2 % 3 6-45 L [facility] Erythrocyte mean corpuscular volume [Entitic volume] by Auto mated count 97.4 fL 80-96 H [facility] Erythrocyte mean corpuscular hemoglobin [Entitic mass] by Automated count 31.9 pg 27-33 [facility] Erythrocyte mean corpuscular hemoglobin concentration [Mass/volume] by Automated count 32.8 g/dL 32.0-[facility] width [Ratio] by Automated count 12.9 % 11.5-14.5 [facility] Platelets [#/volume] in Blood by Automated count 280 10*3/uL 150-400 [facility] Differential cell count method - Blood [facility] Neutrophils/100 leukocytes in Blood by Automated count 56 % [facility] Lymphocytes/100 leukocytes in Blood by Automated count 37 % [facility] Monocytes/100 leukocytes in Blood by Automated count 5 % [facility] Eosinophils/100 leukocytes in Blood by Automated count 1 % [facility] Basophils/100 leukocytes in Blood by Automated count 1 % [facility] Neutrophils [#/volume] in Blood by Automated count 4.79 10*3/uL 1.8-7 .0 [facility] Lymphocytes [#/volume] in Blood by Automated count 3.19 10*3/uL 1.2-4 .0 [facility] Monocytes [#/volume] in Blood by Automated count 0.44 10*3/uL 0-0.8 [facility] Eosinophils [#/volume] in Blood by Automated count 0.11 10*3/uL 0-0.5 [facility] Basophils [#/volume] in Blood by Automated count 0.04 10*3/uL 0-0.2 [facility] Nucleated erythrocytes/100 leukocytes [Ratio] in Blood by Automated count 0 /100{WBCs} 0-0 [facility] ID Date Data Source [id number] [facility] Value Range Interpretation Code Description Data Samantha rce(s) Supporting Document(s) Bicarbonate [Moles/volume] in Serum 20 mmol/L 22-29 L [facility] Chloride [Moles/volume] in Serum or Plasma 111 mmol/L 98-107 H [facility] Creatinine [Mass/volume] in Serum or Plasma 0.63 mg/dL 0.50-0.90 [facility] Glucose [Mass/volume] in Serum or Plasma 111 mg/dL 70-140 [facility] Potassium [Moles/volume] in Serum or Plasma 3.7 mmol/L 3.4-5.1 [facility] Sodium [Moles/volume] in Serum or Plasma 141 mmol/L 136-145 [facility] Urea nitrogen [Mass/volume] in Serum or Plasma 11 mg/dL 6-20 [facility] Anion gap 3 in Serum or Plasma 10 mmol/L 8-15 [facility] Osmolality of Serum or Plasma by calculation 292 mosm/kg 275-300 [facility] Creatinine/Urea nitrogen [Mass Ratio] in Serum or Plasma 17 [facility] Calcium [Mass/volume] in Serum or Plasma 7.4 mg/dL 8.6-10.0 L [facility] Glomerular filtration rate/1.73 sq M pre dicted among non-blacks [Volume Rate/Area] in Serum or Plasma by Creatinine-based formula (MDRD) >6 0 [facility] Glomerular filtration rate/1.73 sq M pre dicted among blacks [Volume Rate/Area] in Serum or Plasma by Creatinine-based formula (MDRD) >60 [facility] ID Date Data Source [id number] 03/16/2020 11:07:13 AM [facility] Name Value Range Interpretation Code Description Data Samantha rce(s) Supporting Document(s) Kaolin activated time [Units/volume] in Blood 186 [facility] ID Date Data Source [id number] 03/16/2020 11:06:38 AM EDT [facility] Value Range Interpretation Code Description Data Samantha rce(s) Supporting Document(s) Kaolin activated time [Units/volume] in Blood 241 s [facility] ID Date Data Source [id number] 03/16/2020 11:07:13 AM EDT [facility] Value Range Interpretation Code Description Data Samantha rce(s) Supporting Document(s) Kaolin activated time [Units/volume] in Blood 202 [facility] ID Date Data Source [id number] 03/16/2020 11:07:13 AM EDT [facility] Value Range Interpretation Code Description Data Samantha rce(s) Supporting Document(s) Kaolin activated time [Units/volume] in Blood 224 [facility] ID Date Data Source [id number] 03/16/2020 11:07:13 AM EDT [facility] Value Range Interpretation Code Description Data Samantha rce(s) Supporting Document(s) Kaolin activated time [Units/volume] in Blood 213 [facility] ID Date Data Source [id number] 03/16/2020 11:07:13 AM EDT [facility] Value Range Interpretation Code Description Data Samantha rce(s) Supporting Document(s) Kaolin activated time [Units/volume] in Blood 131 [facility] ID Date Data Source [id number] 03/10/2020 10:25:48 AM EDT [facility] Value Range Interpretation Code Description Data Samantha rce(s) Supporting Document(s) Progress Note [facility] AFTKLa9hTvOUQtLf73/YHAyhQRAuo0TyQXxqMBe5ESrnZNBjV2WyYAO1jH1zEYD6RWtYGmLrMsXhOOZ4 lbm [file] +5Bwq9+j0UvwZE9A/Marin+qoao2puNIYaugo9jiRXRsFE3zg+5+yOt8oSLNzvnzF1j9xr7POKSt0B/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 The Dept. of Pathology [facility] has Emergency Use Authorization (EUA) from the FDA to peform this test to allow for rapid response during a declared public health emergency.Initial validation was performed by the Centers for Disease Control and Prevention (CDC) and additionally validated by the Dept. of Pathology [facility]. Negative results do not preclude SARS-CoV-2 infection and should not be used as the sole basis for patient management decisions.Additional information is available on the following FDA websites for health care providers and patients. https://www.fda.gov/media/724552/download, ht tps://www.fda.gov/media/016196/download. Name Value Range Interpretation Code Description Data Samantha rce(s) Supporting Document(s) ID Date Data Source [id number] 03/10/2020 10:25:00 AM [facility] Cmnt XXX-Imp : NoneMicroorganism XXX Cult : 2019 nCoV Real-Time RT-PCR: NOT DETECTEDThis test method was designed to detect the causative agent of COVID-19. The Dept. of Pathology [facility] has Emergency Use Authorization (EUA) from the FDA to peform this test to allow for rapid response during a declared public health emergency.Initial validation was performed by the Centers for Disease Control and Prevention (CDC) and additionally validated by the Dept. of Pathology [facility]. Negative results do not preclude SARS-CoV-2 infection and should not be used as the sole basis for patient management decisions.Additional information is available on the following FDA websites for health care providers and patients. https://www.fda.gov/media/006220/download, ht tps://www.fda.gov/media/420590/download. Name Value Range Interpretation Code Description Data Samantha rce(s) Supporting Document(s) Microorganism identified in Unspecified specimen by [facility] This lab was ordered by [facility] and reported by [facility]. ID Date Data Source [id number] 03/10/2020 01:05:24 PM [facility] Name Value Range Interpretation Code Description Data Samantha rce(s) Supporting Document(s) Leukocytes [#/volume] in Blood by Automated count 9.8 10*3/uL 4-10 [facility] Erythrocytes [#/volume] in Blood by Automated count 4.03 10*6/uL 4.1- 5.3 L [facility] Hemoglobin [Mass/volume] in Blood 13.1 g/dL 11.5-15.5 [facility] Hematocrit [Volume Fraction] of Blood by Automated count 39.3 % 3 6-45 [facility] Erythrocyte mean corpuscular volume [Entitic volume] by Auto mated count 97.5 fL 80-96 H [facility] Erythrocyte mean corpuscular hemoglobin [Entitic mass] by Automated count 32.6 pg 27-33 [facility] Erythrocyte mean corpuscular hemoglobin concentration [Mass/volume] by Automated count 33.4 g/dL 32.0-[facility].0 [facility] width [Ratio] by Automated count 13.3 % 11.5-14.5 [facility] Platelets [#/volume] in Blood by Automated count 347 10*3/uL 150-400 [facility] Differential cell count method - Blood [facility] Neutrophils/100 leukocytes in Blood by Automated count 45 % [facility] Lymphocytes/100 leukocytes in Blood by Automated count 46 % [facility] Monocytes/100 leukocytes in Blood by Automated count 6 % [facility] Eosinophils/100 leukocytes in Blood by Automated count 2 % [facility] Basophils/100 leukocytes in Blood by Automated count 1 % [facility] Neutrophils [#/volume] in Blood by Automated count 4.41 10*3/uL 1.8-7 .0 [facility] Lymphocytes [#/volume] in Blood by Automated count 4.51 10*3/uL 1.2-4 .0 H [facility] Monocytes [#/volume] in Blood by Automated count 0.59 10*3/uL 0-0.8 [facility] Eosinophils [#/volume] in Blood by Automated count 0.21 10*3/uL 0-0.5 [facility] Basophils [#/volume] in Blood by Automated count 0.07 10*3/uL 0-0.2 [facility] Nucleated erythrocytes/100 leukocytes [Ratio] in Blood by Automated count 0 /100{WBCs} 0-0 [facility] ID Date Data Source [id number] 03/10/2020 02:42:26 PM EDT [facility] Name Value Range Interpretation Code Description Data Samantha rce(s) Supporting Document(s) Bicarbonate [Moles/volume] in Serum 22 mmol/L 22-29 [facility] Chloride [Moles/volume] in Serum or Plasma 106 mmol/L 98-107 [facility] Creatinine [Mass/volume] in Serum or Plasma 0.73 mg/dL 0.50-0.90 [facility] Glucose [Mass/volume] in Serum or Plasma 93 mg/dL 70-140 [facility] Potassium [Moles/volume] in Serum or Plasma 4.4 mmol/L 3.4-5.1 [facility] Sodium [Moles/volume] in Serum or Plasma 142 mmol/L 136-145 [facility] Urea nitrogen [Mass/volume] in Serum or Plasma 13 mg/dL 6-20 [facility] Anion gap 3 in Serum or Plasma 14 mmol/L 8-15 [facility] Osmolality of Serum or Plasma by calculation 293 mosm/kg 275-300 [facility] Creatinine/Urea nitrogen [Mass Ratio] in Serum or Plasma 17 [facility] Calcium [Mass/volume] in Serum or Plasma 9.3 mg/dL 8.6-10.0 [facility] Glomerular filtration rate/1.73 sq M pre dicted among non-blacks [Volume Rate/Area] in Serum or Plasma by Creatinine-based formula (MDRD) >6 0 [facility] Glomerular filtration rate/1.73 sq M pre dicted among blacks [Volume Rate/Area] in Serum or Plasma by Creatinine-based formula (MDRD) >60 [facility] ID Date Data Source [id number] 03/09/2020 01:18:07 PM EDT [facility] Measurements & CalculationsHeight: 61 inches (5 [...] another healthcare provider? Yes - community clinic, [facility] [place] Have you seen a dentist? Yes - [...] barriers: nonePatient's Language used in visit: YesLanguage: comoran Screening, Brief Intervention, & Referral to Treatment [...] during this visit, including review of any fxvt-hrm-qecqoem medications, herbal therapies, and/or supplements.Allergy ReviewAllergy List [...] & Plan Problems:Added: Cerebral arterial aneurysm (ICD-437.3) (JII98-O65.1) Assessment: Instructions: You are medically optimized to have your upcoming procedure done under general Anesthesia with Dr Gibson at [facility] on March 14 2020. Please hold OTC Nsaids such as Aleve or Ibuprofen prior 5 days prior to your surgery.Cerebral arterial aneurysm (ICD-437.3) (VLZ58-T36.1) Assessment: Pt medically optimized to have Angiogram embolization done under general anesthesia with Dr Gibson 03/14/2020 with expected surgical risk.Assessed:Other cerebral infarction (ZZN06-T42.89) Assessment: Instructions: You are medically optimized to have your upcoming procedure done under general Anesthesia with Dr Gibson at [facility] on March 14 2020. Please hold OTC Nsaids such as Aleve or Ibuprofen prior 5 days prior to your surgery.Pain of bilateral hands (VYY87-C58.641) Assessment: Instructions: gabapentin refilled for you today.Assessment not Saved Cerebral arterial aneurysm (PDS94-V53.1): Comment OnlyPt medically optimized to have Angiogram embolization done under general anesthesia with Dr Gibson 03/14/2020 with expected surgical risk.VSS within normal limits today. Patient Instructions/Care Plan: Other cerebral infarction: You are medically optimized to have your upcoming procedure done under general Anesthesia with Dr Gibson at [facility] on March 14 2020. Please hold OTC Nsaids such as Aleve or Ibuprofen prior 5 days prior to your surgery.Cerebral arterial aneurysm: You are medically optimized to have your upcoming procedure done under general Anesthesia with Dr Gibson at [facility] on March 14 2020. Please hold OTC [...] RELEASE 24 HOURGABAPENTIN 300 MG ORAL CAPSULEDRISDOL 74470 UNIT ORAL CAPSULEEPIPEN 2-SUMAYA 0.3 MG/0.3ML INJECTION SOLUTION AUTO-INJECTOREFFEXOR XR 75 MG ORAL CAPSULE EXTENDED RELEASE 24 HOURMedication Changes:Refilled:GABAPENTIN 300 MG ORAL CAPSULE-1 capsule by mouth every night at bedtime for pain Qty: 30[Capsule] Refills: 5 Method: ElectronicAllergies:PENICILLIN (Critical)* BEES (Critical)Orders:Adult - Ofc Vst, EST, Level III [CPT-09765] Follow-Up Return to clinic: as scheduled and as needed Clinical Visit Summary CompletedMedicat ions:GABAPENTIN 300 MG ORAL CAPSULE (GABAPENTIN) 1 capsule by mouth every night at bedtime for pain #30[Capsule] x 5 Route:ORAL Entered and Authorized by: Doris COLLINS Method used: Electronically to [email or web address] (retail) [address] [place] [address] Note to Pharmacy: Route: ORAL; RxID: [id number] signed by Doris COLLINS on 03/10/2020 at 10:40 AM Name Value Range Interpretation Code Description Data Samantha rce(s) Supporting Document(s) ID Date Data Source [id number] 02/11/2020 01:43:38 PM EDT [facility] IR ARTERIOGRAM CEREBRALFINAL RESULTInter preted by:Dieter Gibson, [...] artery angiogram8. Supervision and interpretationSurgeon: Dieter Gibson M.D.Customer Support Associate: Froy Bruno M.D.Anesthesia: Moderate conscious sedation monitored [...] in standard sterile fashion, and we underwent [facility] standard timeout for patient and site verification [...] technique under direct ultrasound visualization. A 5 Egyptian radial glide sheath was placed using Seldinger [...] administered for thromboembolic prophylaxis. Subsequently, a 5 Egyptian Tate 2 glide catheter was advanced through [...] rce(s) Supporting Document(s) ID Date Data Source [id number] 02/02/2020 10:27:11 AM T [facility] Name Value Range Interpretation Code Description Data Samantha rce(s) Supporting Document(s) Progress Note [facility] YFRFQs9oEmSNTtDx06/SPQmdTWQbn0RmWSlxRBo6OHurUNFjZ4QtKOQ7gY8xCGV5SKkWDcNzRvUoDuGx lbm [file] ICAgICAgICAgICAgICAgICAgICAgICAgICAgICAgICAgICAgICAgICAgICAgICAgICANCiAgICAgICAg ICAgICAgICAgICAgICAgICAgICAgICAgICAgICAgIC AgICAgICAgICAgICAgICAgICAgICAgICAgICAgICAgICAgICAgICAgICAgICAgICAgICAgICAgICAgIC ANCiAgICAgICAgICAgICAgICAgICAgICAgICAgICAgICAgICAgICAgICAgICAgICAgICAgICAgICAgIC AgICAgICAgICAgICAgICAgICAgICAgICAgICAgICAg ICAgICAgICAgICANCiAgICAgICAgICAgICAgICAgICAgICAgICAgICAgICAgICAgICAgICAgICAgICAg ICAgICAgICAgICAgICAgICAgICAgICAgICAgICAgICAgICAgICAgICAgICAgICAgICAgICANCiAgICAg ICAgICAgICAgICAgICAgICAgICAgICAgICAgICAgIC AgICAgICAgICAgICAgICAgICAgICAgICAgICAgICAgICAgICAgICAgICAgICAgICAgICAgICAgICAgIC AgICANCiAgICAgICAgICAgICAgICAgICAgICAgICAgICAgICAgICAgICAgICAgICAgICAgICAgICAgIC AgICAgICAgICAgICAgICAgICAgICAgICAgICAgICAg ICAgICAgICAgICAgICANCiAgICAgICAgICAgICAgICAgICAgICAgICAgICAgICAgICAgICAgICAgICAg ICAgICAgICAgICAgICAgICAgICAgICAgICAgICAgICAgICAgICAgICAgICAgICAgICAgICAgICANCiAg ICAgICAgICAgICAgICAgICAgICAgICAgICAgICAgIC AgICAgICAgICAgICAgICAgICAgICAgICAgICAgICAgICAgICAgICAgICAgICAgICAgICAgICAgICAgIC AgICAgICANCiAgICAgICAgICAgICAgICAgICAgICAgICAgICAgICAgICAgICAgICAgICAgICAgICAgIC AgICAgICAgICAgICAgICAgICAgICAgICAgICAgICAg ICAgICAgICAgICAgICAgICANCiAgICAgICAgICAgICAgICAgICAgICAgICAgICAgICAgICAgICAgICAg ICAgICAgICAgICAgICAgICAgICAgICAgICAgICAgICAgICAgICAgICAgICAgICAgICAgICAgICAgICAN Cjw/sBKzN1mplOZmroL5J9smMi1XOp9HZJ0po5PaFW LbHHaajvJlGexZUrArVDCxDaaCUfi9KWavBJ2WrHXjD7NdS3JfHKojOO3PRATxFHRjsGIhEJVzVHBzFy E2OHUlZRkcCA3KlGYkAEkkMGGkCWAdUtMfWSUdPT5RVNKcF723kmRgZi3VWg8POtUkYQ1uin5XUcZkFZ AfOqpOIdc5OZxoBD7BaHCssNYfNhEjGXAQOoVhL4ot f7WoBiTbKFTBLFqsZB1Vm0ZpzXJsEJk+At0BGS8pd3NxSWimXmEjCJ2ick4NBYoBVpRnW3TfiOtxGJFk j6puGTNuPM1vnCVfXNU9MVroXGtjtORdKhXOp3UxSPhyXTPvFWGhTp1tFX3iZPTfHQL2RrL0EXIGZC7Q RMDiSDFsfNJsWNArSSWQOP3KNCtlBUS1HUDogaWunF BgABmaSL7ZIFNcaxRdQzEePEGJEBc+Le9ZNW3be2EdPLsqRePrMW4giu6TSClYFlQaJ6F8fHEbB4Y0RP aaDf0DZNHxSNIbRCmnJBAEQGxxLP7ONY3clgA9JK2AaVKyLPOiGRWwkIFtWYl9L99zeTYpKFwhSQ9LMG A+Lincoln+Ag6UYJYsPXXuQWUmCvBqQRXFRvVwZ6OdB8FD l0YrS6UgJB91aLwupgLjUCvwIJ7SPZ2nGVEzCOPNXA3SxTHopT6ffsSzSJPzXPIOWjOwC47sqKFqSRIy JRPzVXPpGx8UQXMcS7QbwnWkzGcxmuJuDNPxAMZLWE3BJLcfzaXunLNzzCnbXE47mDocFR9HQg6OKxWn MV6gtd8GvTVvXg7UXQOxLU9DRXNaAEHsHEHdKBQ5OU JrYaLqXOtcMLWiFETpIQZ4BKXySCSjWW3HArReRBHxKZT6ZFWxHSJtOVQjxh1VJPSxMNN4VESzOIDpFM NuQXUrWBwxNIWxDQJyHGK8PRJnTDXdXL5RTiNgSNCwMBA3EGGqZKPzTNGqdk1ZVQBoIVKbWSifUDZcSH LzVEChOEabGMMtPFR3GQhdSYYsEEBtHI2EQoFzVDOx CML6ZHkbOCYlMHGjdp7JBNKjSBIxPiM6FoMrXVYaPMAuKQddUILvRXG8BZVwNJEnDUBtQO6DElSeRVVm KPcwVwWcJOBvTYBpqn0CMTGeESUbFRe9HwFoDJDlGKUbXEiiWTHsCND8HCx9DMOmBULxIT2CKaZdZYHw SHxaWnNyHWInYMDogi0NKDJpQTI1TDl3MWIyQYRiSG TdUVcrRILqBFGbLWp3HJDcTCQwUM6TRtVeEZHfQFK3GXzeFFLyYVPfir5JIIJfHLE8HtTaTPTmJHOtBZ HlCMgcBTMqHPSoUaMbRBRjKIMaIC7DNuXgLWRuJCNsZxEkVQIwRRHfmm0RKWVsSYC9UNCiOQDmRBFaMP ZsEKjoVQDgEPX5ZEq3TLYfNLRcPR1RUeCxPHRpCQF5 KiTwFRWnCLPngm6ImPPxsRjduj2MYNfNSg0MaNgpWOZ0SIcmBi8dyDGtOtRjIMDKVx1MvvUoQJKvPBDS HFldEZKxEGFdDBGdZHVfKNH6MYm9XkKoZKk0EuZiWWIsNVT3WrLkKtV5NTKqF3P9XBE7MSB8XbAmMMWf TdWtADOfA2OfKPz7ZUM+GC0bHAi+Hu6Rm8QfshZ9zrIqKFs1VAu0KU9LKTQIZ2IPUd== ID Date Data Source [id number] 01/26/2020 10:53:46 AM [facility] Name Value Range Interpretation Code Description Data Samantha e(s) Supporting Document(s) History and Physical [facility] TVSUQz0lTyFJAyAz04/SWDcfADIbz1YhRJkoXDq5HXxiCHQwU1LoGLD5mN6tSRO4RWlVAaQqOvXfUfIj lbm [file] [id number]== ID Date Data Source [id number] 01/26/2020 11:29:25 AM EDT [facility] Name Value Range Interpretation Code Description Data Samantha rce(s) Supporting Document(s) Creatinine [Mass/volume] in Blood 0.7 mg/dL 0.50-0.90 [facility] ID Date Data Source [id number] 01/25/2020 11:30:52 AM EDT [facility] Name Value Range Interpretation Code Description Data Samantha rce(s) Supporting Document(s) Progress Note [facility] DBXALv2jMsUGXdUk11/LRAgxBZDkl6SuILsvXOu9TVaiLBTbD3ZxOVO3qU0uOJD6HAtXSdHrAtWtKoVo lbm [file] WLu6DdK0LXmgTDEKSb3J ID Date Data Source [id number] 01/23/2020 09:47:46 AM EDT [facility] Name Value Range Interpretation Code Description Data Samantha rce(s) Supporting Document(s) Progress Note [facility] MKJZEu7tUlKJWuOz98/GHGfcYMTzs3PsLZanIYq1PSueIJOtR5OjAZT4fM1wPJW2MMdOLrZwVnAvTdLh lbm [file] WsJXBjTTP3RbshSNXiX3K+II3oVDs+Gy5Ir9CeazR1luLiKTggYGRzLx7FCFXGJ9PWVl== ID Date Data Source [id number] 01/24/2020 07:35:52 AM [facility] Cmnt XXX-Imp : NoneMicroorganism XXX Cult : 2019 nCoV Real-Time RT-PCR: NOT DETECTEDTest performed using the [employer] COVID-19 MDx Assay. This test is only for use under the Food and Drug Administration's Emergency Use Authorization.Additional information is available on the following FDA websites for health care providers and patients. https://www.fda.gov/media/178489/download , https://www .fda.gov/media/137085/download Name Value Range Interpretation Code Description Data Samantha rce(s) Supporting Document(s) ID Date Data Source [id number] 01/23/2020 09:47:00 AM EDT [facility] Cmnt XXX-Imp : NoneMicroorganism XXX Cult : 2019 nCoV Real-Time RT-PCR: NOT DETECTEDTest performed using the [employer] COVID-19 MDx Assay. This test is only for use under the Food and Drug Administration's Emergency Use Authorization.Additional information is available on the following FDA websites for health care providers and patients. https://www.fda.gov/media/683039/download , https://www .fda.gov/media/043672/download Name Value Range Interpretation Code Description Data Samantha rce(s) Supporting Document(s) Microorganism identified in Unspecified specimen by [facility] This lab was ordered by [facility] and reported by [facility]. ID Date Data Source [id number] 01/18/2020 12:20:00 PM EDT [facility] Name Value Range Interpretation Code Description Data Samantha rce(s) Supporting Document(s) APPEARANCE U HAZY CLEAR N [facility] SPEC GR URIN 1.019 1.002-1.035 N [facility] UA COLOR YELLOW YELLOW N [facility] ID Date Data Source [id number] 01/18/2020 12:20:00 PM EDT [facility] Name Value Range Interpretation Code Description Data Samantha rce(s) Supporting Document(s) HCT 38.9 % 36.0-47.0 N [facility] HGB 12.7 g/dL 12.0-15.5 N [facility] MCH 32.6 G/DL pg 32.0-36.5 [facility] MCHC 31.8 PG % 27.0-33.0 [facility] PLATELETS 401 10 10*3/mm3 150-450 N [facility] RBC 4.00 10 10*6/mm3 4.00-5.40 [facility] RDW 13.5 % 11.5-14.5 [facility] WBC TOTAL 8.9 4.0-10.0 N [facility] ID Date Data Source [id number] 01/18/2020 12:20:00 PM EDT [facility] Name Value Range Interpretation Code Description Data Samantha rce(s) Supporting Document(s) BG FASTING 75 mg/dL 70-100 N [facility] ID Date Data Source [id number] 10/14/2019 12:10:49 PM EDT [facility] Measurements & CalculationsHeight: 61 inches (5 [...] been admitted to the hospital? No - [facility] admission date reported today: 05/07/2019Have you been [...] Illness (HPI)Telemedicine visit with patient's location at [facility] and provider's location at offsite office. Additional [...] during this visit, including review of any vono-tql-qfcemnl medications, herbal therapies, and/or supplements.Allergy ReviewAllergy List [...] Very GoodAssessment & Plan Problems:Assessed:Other cerebral infarction (ZSS62-Q33.89) Assessment: Instructions: Continue to follow up with neurology as instructed. Please fill out a release of information form to obtain records from [facility].Anxiety depression (ICD-300.4) (MBP33-W21.8) Assessment: Instructions: Continue same medications for your mental health.Other cerebral infarction (BRX70-Y75.89) Assessment: Pt instructed to follow up with neuro [facility] and [facility] sent for records.Anxiety depression (ICD- 300.4) (ZZK24-N97.8) Assessment: Stble on current meds.Patient Instructions/Care Plan: Other cerebral infarction: Continue to follow up with neurology as instructed. Please fill out a release of information form to obtain records from [facility].Anxiety depression: Continue same medications for your mental health. Plan developed in collaboration with patient and/or familyMedications:ONE A DAY MVICVS NICOTINE 4 MG MOUTH/THROAT GUMPRAZOSIN HCL 1 MG ORAL CAPSULEADULT ASPIRIN REGIMEN 81 MG ORAL TABLET DELAYED RELEASEATORVASTATIN CALCIUM 40 MG ORAL TABLETBUSPIRONE HCL 15 MG ORAL TABLETBUPROPION HCL ER (XL) 150 MG ORAL TABLET EXTENDED RELEASE 24 HOURGABAPENTIN 300 MG ORAL CAPSULEDRISDOL 83591 UNIT ORAL CAPSULEEPIPEN 2-SUMAYA 0.3 MG/0.3ML INJECTION SOLUTION AUTO-INJECTOREFFEXOR XR 75 MG ORAL CAPSULE EXTENDED RELEASE 24 HOURMedication Changes:Removed:NICODERM CQ 14 MG/24HR TRANSDERMAL PATCH 24 HOUR-1 patch daily Qty: 30[Patch] Refills: 1Allergi es:PENICILLIN (Critical)* BEES (Critical)Orders:Office Visit - Established, Level 3 [[id number]] Follow-Up Return to clinic: 3 months for follow up Clinical Visit Summary CompletedMedications:Cancelled NICODERM CQ 14 MG/24HR TRANSDERMAL PATCH 24 HOUR (NICOTINE) 1 patch daily #30[Patch] x 1 Route:TRANSDERMAL Entered and Authorized by: Sarah CENTENO Method used: Electronically to [id number] (retail) [address] [place] [address] RxID: [id number]] Name Value Range Interpretation Code Description Data Samantha rce(s) Supporting Document(s) ID Date Data Source [id number] 10/12/2019 10:50:03 AM EDT [facility] Patient History Medical History:Depressi onAnxietystokebrain bleed Surgical History:polyps removedhemmoroidsHysterectomy total- 2014Family History:Cancer - Unknown (Brother)Down's syndrome (Sister)Cancer - Unknown (Sister)Social/Personal History: Smoking Status: former smokerDo you vape? NoCurrent Problems: Insomnia (ICD-780.52) (EQH72-Y49.00)Other cerebral infarction (KHW93-I74.89)Partial loss of teeth due to periodontal diseases, class II (VQM08-Y75.422)Dental caries (ICD-521.00) (BHZ26-C95.9)Shoulder pain, right (ICD-719.41) (BDJ22-Z19.511)Screening for colon cancer (ICD-V76.51) (BAJ36-H78.11)Dental caries (ICD-521.00) (BNV52-P20.9)DENTAL CARIES EXTENDING INTO PULP (ICD-521.03) (CEA21-G90.63)Vitamin D deficiency (ICD-268.9) (ICD10- E55.9)Needs vaccination for influenza (ICD-V04.81) (QXI23-P71)Pain of bilateral hands (DPF78-J95.641)Health Screening (ICD-V70.0) (KXI52-Y21.9)Screening for malignant neoplasm of breast (DAT01-N31.39)Anxiety depression (ICD-300.4) (WFY31-A75.8)History of total hysterectomy (ICD-V88.01) (GAP48-K84.710)BMI 23.0- 23.9 (ICD-V85.1) (FFC51-Y88.23)Passive smoke exposure (ICD-V15.89) (ICD10- Z77.22)Tobacco dependence in remission (ICD-305.1) (GJU91-A86.291)Problem list reviewed during this update.Current Medications: * [...] night at bedtime for pain; Route: ORALDRISDOL 00123 UNIT ORAL CAPSULE (ERGOCALCIFEROL) Take 1 capsule [...] UR Chart Notes:akosua (Oct 12 2019 2:43PM): [facility](+ Pt getting further testing). CC: none. Reviewed Xrays. Exam: caries detected. OCS: WNL, IO/ EO completed, No significant hard findings upon clinical exam Pt was cooperative.OHI givenReferral: N/ANV:filling when med clearance obtainedEdwige Sol RDH by akosua (10/12/2019 2:43 PM): ; irish (Oct 12 2019 11:14AM): Pt arrived for perio mainteance appointment stating she has been hospitalized in [place] for a week since last visit and [...] RELEASE 24 HOURGABAPENTIN 300 MG ORAL CAPSULEDRISDOL 86060 UNIT ORAL CAPSULEEPIPEN 2-SUMAYA 0.3 MG/0.3ML INJECTION SOLUTION AUTO-INJECTOREFFEXOR XR 75 MG ORAL CAPSULE EXTENDED RELEASE 24 HOURMedication Changes:Added: * ONE A DAY MVIAllergies:PENICILLIN (Critical)* BEES (Critical)Clinical Visit Summary Declined Name Value Range Interpretation Code Description Data Samantha rce(s) Supporting Document(s) ID Date Data Source [id number] 10/10/2019 09:05:21 AM [facility] Name Value Range Interpretation Code Description Data Samantha rce(s) Supporting Document(s) Progress Note [facility] DKCRJm7wIbJCOqIq48/GUNnjYFKyl6TmWEfvRYr9IDphILNxP8YsAEN5fT4lGIN8OBmUEyJbRgHsYyU2 lbm WaFhhRGqRbQJVvFobLOxViSIrxVmqdkENuNO9MqUH4OWXtN39uCGMhCPCuV7WdJCL1TYJ+Ln7PCZUwsP SbUE7ZTguG9D2tl1pYCu6wxO7erNWD0VHFxxL7DrTyFxzcI19eDOyL7xWQJWP5ldjgu+Qk7q/eIg7LDf XNhHqiIZeKc+1VN7wIxaD0wn0wy48J9z5fbyyJraSv 1b/1r4Jj4TVx/viAXh8i1vLq2z/lJoBGltWeVa9WhsBimy920nxNE45TlGk+WobaEwCxv42gZim3e6b/ fq/9yqa6BCGrWVaWyNuJ5NEBhbB5gGQfp4bHK4XyxokZB/oyrmi8z9EvUhAjMwd+KV1YJ3SYaWhMIsQp eF48LN+lD98/IjRfFe+L0Lx40PdEzcXwzPtvFHtEEF AgQ+OQ6W30BJpgQ76jH8NunL10umVqtUSgKLT65iIkP0vqZeOFIwbsweb19SVWXTw0RnmRzAfA0Qm0UU rTjEitX5GfWZa/A3KuZywPre0I6RVGqOMNZomsJo7exjrnH8e5Ia4C1sVlh6zO0BbdYT/zn9i6vNihgj B0qLSFszGe610KZ4Gg83BUkDvnWuTlQXD5YVchMgHb b6A5esYeY7HOMjD6Fx/PEÑA/W82/i2pLcb6caW36/5frMWz7nifHIQcZPjsTcOS0DnKUdcw37vr8fBbTac [file] ubMIAJVm5X Procedure Social History Code Duration Value Status Description Data Source(s ) Smoking 08/24/2020 12:00:00 AM EST Unknown if ever smoked comp leted Unknown if ever smoked [facility] Smoking 07/27/2020 12:00:00 AM EST Unknown if ever smoked comp leted Unknown if ever smoked [facility] ([facility]) Smoking 05/19/2020 12:00:00 AM EDT Unknown if ever smoked comp leted Unknown if ever smoked [facility] ([facility]) Smoking 05/18/2020 12:00:00 AM EDT Unknown if ever smoked comp leted Unknown if ever smoked [facility] ([facility]) Alcohol intake 03/18/2020 12:00:00 AM EDT Ex-drinker (finding) comp leted Ex- drinker (finding) [facility] Tobacco use and exposure 03/18/2020 12:00:00 AM EDT Former user co mpleted Former user [facility] Cigarette pack-years 03/18/2020 12:00:00 AM EDT UNK completed [facility] Cigarettes smoked current (pack per day) - Reported 03/18/20 12:00:00 AM EDT UNK completed [facility] Smoking 03/18/2020 12:00:00 AM EDT Former smoker completed Former smoker [facility] Alcohol intake 03/14/2020 12:00:00 AM EDT Ex-drinker (finding) comp leted Ex- drinker (finding) [facility] Alcohol intake 02/02/2020 12:00:00 AM EDT Ex-drinker (finding) comp leted Ex- drinker (finding) [facility] Cigarette pack-years 02/02/2020 12:00:00 AM EDT UNK [facility] Cigarettes smoked current (pack per day) - Reported 02/02/20 12:00:00 AM EDT UNK completed [facility] Smoking 02/02/2020 12:00:00 AM EDT Former smoker completed Former smoker [facility] Alcohol intake 01/26/2020 12:00:00 AM EDT Ex-drinker (finding) comp leted Ex- drinker (finding) [facility] Smoking 01/26/2020 12:00:00 AM EDT Former smoker completed Former smoker [facility] Smoking 12/23/2019 12:00:00 AM EDT Unknown if ever smoked comp leted Unknown if ever smoked [facility] ([facility]) Smoking 11/25/2019 12:00:00 AM EDT Unknown if ever smoked comp leted Unknown if ever smoked [facility] ([facility]) Alcohol intake 10/07/2019 12:00:00 AM EST Ex-drinker (finding) comp leted Ex- drinker (finding) [facility] Smoking 10/07/2019 12:00:00 AM EST Former smoker completed Former smoker [facility] Smoking 09/23/2019 12:00:00 AM EST Unknown if ever smoked comp leted Unknown if ever smoked [facility] ([facility]) Smoking 08/26/2019 12:00:00 AM EST Unknown if ever smoked comp leted Unknown if ever smoked [facility] ([facility]) Vital Signs ID Date Data Source UNK Name Value Range Interpretation Code Description Data Source(s) Diastolic blood pressure 0 mm[Hg] Normal (applies to non-numeric results) 0 mm[Hg] [facility] ([facility]) Systolic blood pressure 0 mm[Hg] Normal (applies t o non-numeric results) 0 mm[Hg] [facility] ([facility]) Body mass index (BMI) [Ratio] 0.00 kg/m2 No rmal (applies to non-numeric results) 0.00 kg/m2 [facility] ([facility]) Body weight Measured 0.00 lbs Normal (applies to n on-numeric results) 0.00 lbs [facility] ([facility]) Body height 0.00 in Normal (applies to non-numeric resu lts) 0.00 in [facility] ([facility]) Diastolic blood pressure 0 mm[Hg] Normal (applies to non-numeric results) 0 mm[Hg] [facility] ([facility]) Systolic blood pressure 0 mm[Hg] Normal (applies t o non-numeric results) 0 mm[Hg] [facility] ([facility]) Body mass index (BMI) [Ratio] 0.00 kg/m2 No rmal (applies to non-numeric results) 0.00 kg/m2 [facility] ([facility]) Body weight Measured 0.00 lbs Normal (applies to n on-numeric results) 0.00 lbs [facility] ([facility]) Body height 0.00 in Normal (applies to non-numeric resu lts) 0.00 in [facility] ([facility]) Diastolic blood pressure 0 mm[Hg] Normal (applies to non-numeric results) 0 mm[Hg] [facility] ([facility]) Systolic blood pressure 0 mm[Hg] Normal (applies t o non-numeric results) 0 mm[Hg] [facility] ([facility]) Body mass index (BMI) [Ratio] 0.00 kg/m2 No rmal (applies to non-numeric results) 0.00 kg/m2 [facility] ([facility]) Body weight Measured 0.00 lbs Normal (applies to n on-numeric results) 0.00 lbs [facility] ([facility] Body height 0.00 in Normal (applies to non-numeric resu lts) 0.00 in [facility] ([facility]) Diastolic blood pressure 0 mm[Hg] Normal (applies to non-numeric results) 0 mm[Hg] [facility] ([facility]) Systolic blood pressure 0 mm[Hg] Normal (applies t o non-numeric results) 0 mm[Hg] [facility] ([facility]) Body mass index (BMI) [Ratio] 0.00 kg/m2 No rmal (applies to non-numeric results) 0.00 kg/m2 [facility] ([facility]) Body weight Measured 140.00 lbs Normal (applies to n on-numeric results) 140.00 lbs [facility] ([facility]) Body height 0.00 in Normal (applies to non-numeric resu lts) 0.00 in [facility] ([facility]) ID Date Data Source [id number] 02/02/2020 10:27:11 AM [facility] Name Value Range Interpretation Code Description Data Source(s) WEIGHT RECORDED 128.6 lb 128.6 lb [facility] Body height Measured 61 in 61 in [facility] ID Date Data Source [id number] 02/12/2020 06:53:30 AM [facility] Name Value Range Interpretation Code Description Data Source(s) WEIGHT RECORDED 125 lb 125 lb [facility] Body height Measured 61 in 61 in [facility] Patient Treatment Plan of Care Planned Activity Planned Date Details Description Data Source (s) Cholecalciferol 76483 UNT Oral Capsule 03/20/2020 09:00:00 AM [facility] Aspirin 81 MG Chewable Tablet 03/17/2020 12:00:00 AM [facility] Aspirin 81 MG Chewable Tablet 03/17/2020 12:00:00 AM [facility] Magnesium Hydroxide 80 MG/ML Oral Suspension 03/16/2020 12:00:00 AM [facility] Acetaminophen 325 MG Oral Tablet 03/16/2020 12:00:00 AM [facility] Ticagrelor 90 MG Oral Tablet 03/15/2020 12:00:00 AM [facility] Magnesium Hydroxide 80 MG/ML Oral Suspension 03/14/2020 10:00:00 PM [facility] Acetaminophen 325 MG Oral Tablet 03/14/2020 05:14:49 PM [facility] sennosides, [facility] 35.2 MG/ML Oral Solution 03/14/2020 05:14:33 PM [facility] Bisacodyl 10 MG Rectal Suppository 03/14/2020 05:14:33 PM [facility] 4 ML Labetalol hydrochloride 5 MG/ML Cartridge 03/14/2020 05:14:33 PM [facility] gabapentin 300 MG Oral Capsule 01/27/2020 12:00:00 AM [facility] Nicotine 2 MG Chewing Gum 12/28/2019 12:00:00 AM [facility] buspirone hydrochloride 15 MG Oral Tablet 12/28/2019 12:00:00 AM [facility] 24 HR Nicotine 0.583 MG/HR Transdermal Patch 12/24/2019 12:00:00 AM [facility] Cholecalciferol 99133 UNT Oral Capsule 10/22/2019 12:00:00 AM [facility] Prazosin 1 MG Oral Capsule 09/27/2019 12:00:00 AM [facility] Aspirin 81 MG Delayed Release Oral Tablet [facility] 24 HR Nicotine 0.875 MG/HR Transdermal Patch [facility]
--- NOTE | 2020-09-23 18:18 | REPVR ---
PROCEDURE INFORMATION: Exam: CT Head Without Contrast Exam date and time: 09/23/2020 5:42 PM Age: 60 years old Clinical indication: Pain; Headache TECHNIQUE: Imaging protocol: Computed tomography of the head without contrast. Radiation optimization: All CT scans at this facility use at least one of these dose optimization techniques: automated exposure control; mA and/or kV adjustment per patient size (includes targeted exams where dose is matched to clinical indication); or iterative reconstruction. COMPARISON: CT Head without contrast 05/02/2019 4:40 PM FINDINGS: Brain: No acute intracranial hemorrhage, cerebral edema, or midline shift. Cerebral ventricles: No hydrocephalus. Bones/joints: No acute fracture. Paranasal sinuses: There is no acute sinusitis. Mastoid air cells: Visualized mastoid air cells are well aerated. Orbital cavity: Unremarkable as visualized. Vasculature: A stent is noted in the left middle cerebral artery related to prior aneurysm treatment. Soft tissues: Unremarkable. IMPRESSION: No acute intracranial abnormality. Electronically signed by: Getachew Sparks On 09/23/2020 18:18:12 PM
[2020-09-23] MEDS ORDERED: ACETAMINOPHEN 500 MG TAB PO ONE (18:45)
--- NOTE | 2020-09-23 20:47 | REPVR ---
PROCEDURE INFORMATION: Exam: MR Head Without Contrast Exam date and time: 09/23/2020 6:22 PM Age: 60 years old Clinical indication: Pain; Headache not specified; Prior surgery; Surgery date: 6+ months; Surgery type: Neuroform atlas stent placement; Additional info: Headache h/o aneurysm TECHNIQUE: Imaging protocol: MR of the head without contrast. COMPARISON: MRA BRAIN W/O CONTRAST 06/20/2019 12:05 PM FINDINGS: Examination is motion limited. Age-related volume loss. Major vascular flow voids at the skull base are preserved. No extra-axial fluid collection. No midline shift or intracranial mass effect. Nonspecific white matter gliosis, probable chronic microvascular ischemia. No cerebral edema. No diffusion restriction. Visualized paranasal sinuses and mastoid air cells are clear. IMPRESSION: No acute intracranial abnormality. Electronically signed by: Alan Mcclure On 09/23/2020 20:47:46 PM
--- NOTE | 2020-09-23 20:52 | REPVR ---
PROCEDURE INFORMATION: Exam: MR Angiogram Head Without Contrast, Arteries Exam date and time: 09/23/2020 6:22 PM Age: 60 years old Clinical indication: Pain; Headache; Prior surgery; Surgery date: 6+ months; Surgery type: Neuroform atlas stent system; Additional info: Headache h/o aneurysm TECHNIQUE: Imaging protocol: MR angiogram head without contrast. Exam focused on the arteries. COMPARISON: MRA BRAIN W/O CONTRAST 06/20/2019 12:05 PM FINDINGS: ANTERIOR CIRCULATION: Right internal carotid artery: Aneurysm at the distal right ICA measuring 4 mm x 5 mm is stable. Right middle cerebral artery: No occlusion or significant stenosis. No aneurysm. Right anterior cerebral artery: Hypoplastic right A1 segment. Left internal carotid artery: Aneurysm at the distal left ICA measuring 4 mm x 4 mm, stable. 3 mm left paraclinoid ICA aneurysm is stable. Left middle cerebral artery: There has been interval stent assisted coiling of left MCA bifurcation aneurysm with associated artifact. Suspect minimal residual flow. No definite large vessel occlusion to the degree visualized. Left anterior cerebral artery: No occlusion or significant stenosis. No aneurysm. POSTERIOR CIRCULATION: Right vertebral artery: No occlusion or significant stenosis. No aneurysm. Left vertebral artery: No occlusion or significant stenosis. No aneurysm. Basilar artery: No occlusion or significant stenosis. No aneurysm. Right posterior cerebral artery: No occlusion or significant stenosis. No aneurysm. Left posterior cerebral artery: No occlusion or significant stenosis. No aneurysm. IMPRESSION: 1. 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 There is associated artifact. 2. Suspect minimal residual flow at the left MCA bifurcation aneurysm. 3. 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 Electronically signed by: Alan Mcclure On 09/23/2020 20:52:47 PM
[2020-09-23 22:08] VITALS: BP 133/79
--- NOTE | 2020-09-26 08:22 | ED PDOC ---
Post-Departure Follow-Up jeronimo pederson faxed formal report of mra brain for fu Dominik Lewis MD Sep 26, 2020 08:22
== END 2020-09-23 22:05 | disposition home or self-care (01) ==
LOC: M ED 17:15
DX: R51.9 Headache, unspecified (principal); K21.9 Gastro-esophageal reflux disease without esophagitis; Z79.899 Other long term (current) drug therapy; Z88.0 Allergy status to penicillin; Z91.030 Bee allergy status
CPT/HCPCS: 70450; 70544; 70551; 96374; 96375; 99284; J1200; J2765

== ENCOUNTER → 2020-10-03 | Outpatient (CLI) | payer OTHER ==
[2020-10-03 12:14] LABS: BASO # 0.1 10^3/uL (0.0-0.2); BASO % 0.6 % (0.0-1.0); EOS # 0.1 10^3/uL (0.0-0.5); EOS % 1.4 % (0.0-3.0); HEMATOCRIT 43.4 % (36.0-47.0); HEMOGLOBIN 14.1 g/dl (12.0-15.5); LYMPH % 40.2 % (24.0-44.0); MEAN CORPUSCULAR HEMOGLOBIN 31.2 pg (27.0-33.0); MEAN CORPUSCULAR HGB CONC 32.5 g/dl (32.0-36.5); MONO # 0.6 10^3/uL (0.0-0.8); NEUTROPHILS # 5.1 10^3/uL (1.5-8.5); NEUTROPHILS % 51.1 % (36.0-66.0); PLATELET COUNT, AUTOMATED 405 10^3/uL (150-450); RED BLOOD COUNT 4.52 10^6/uL (4.00-5.40)
[2020-10-03 12:17] LABS: APPEARANCE, URINE CLOUDY (CLEAR); BACTERIA, URINE AUTO 1+ (NEGATIVE); BILIRUBIN, URINE AUTO 1+ (NEGATIVE); BLOOD, URINE BLOOD NEGATIVE (NEGATIVE); COLOR, URINE AMBER (YELLOW); GLUCOSE, URINE (UA) AUTO NEGATIVE (NEGATIVE); KETONE, URINE AUTO TRACE mg/dL (NEGATIVE); LEUKOCYTE ESTERASE, URINE AUTO TRACE (NEGATIVE); MUCUS, URINE LARGE (NEGATIVE); NITRITE, URINE AUTO NEGATIVE (NEGATIVE); PROTEIN, URINE AUTO 1+ mg/dL (NEGATIVE); RBC, URINE AUTO 0 /HPF (0-3); SQUAMOUS EPITHELIAL CELL UR AU 13 /HPF (0-6); WBC, URINE AUTO 3 /HPF (0-3)
[2020-10-03 12:25] LABS: INR 0.97; PROTHROMBIN TIME 13.1 SECONDS (12.5-14.3)
[2020-10-03 12:26] LABS: PARTIAL THROMBOPLASTIN TIME 29.9 SECONDS (24.2-38.5)
[2020-10-03 12:40] LABS: CALCIUM LEVEL 10.2 MG/DL (8.8-10.2); CREATININE FOR GFR 1.08 MG/DL (0.55-1.30); GLOMERULAR FILTRATION RATE 55.1 (>45)
== END ==
LOC: M LAB 11:11
PROVIDERS: ATTEND Physician Assistant Medical
DX: I67.1 Cerebral aneurysm, nonruptured (principal)

== ENCOUNTER → 2021-10-18 | Outpatient (CLI) | payer OTHER ==
[~2021-10-18] MED LIST changes: +OMEP40CA4 PO; -OMEP40CA97 PO
== END ==
LOC: M RAD 12:14
PROVIDERS: ATTEND Neurological Surgery
DX: I67.1 Cerebral aneurysm, nonruptured (principal)

== ENCOUNTER → 2021-11-17 | Outpatient (CLI) | payer OTHER ==
[2021-11-17 12:54] LABS: HEMATOCRIT 41.3 % (36.0-47.0); HEMOGLOBIN 13.7 g/dl (12.0-15.5); MEAN CORPUSCULAR HEMOGLOBIN 32.7 pg (27.0-33.0); MEAN CORPUSCULAR HGB CONC 33.2 g/dl (32.0-36.5); MEAN CORPUSCULAR VOLUME 98.6 fl (80.0-96.0); PLATELET COUNT, AUTOMATED 415 10^3/uL (150-450); RED BLOOD COUNT 4.19 10^6/uL (4.00-5.40); WHITE BLOOD COUNT 10.2 10^3/uL (4.0-10.0)
[2021-11-17 13:05] LABS: INR 0.85
[2021-11-17 13:11] LABS: APPEARANCE, URINE CLOUDY (CLEAR); BACTERIA, URINE AUTO 2+ (NEGATIVE); BILIRUBIN, URINE AUTO NEGATIVE (NEGATIVE); BLOOD, URINE BLOOD NEGATIVE (NEGATIVE); COLOR, URINE AMBER (YELLOW); GLUCOSE, URINE (UA) AUTO NEGATIVE (NEGATIVE); KETONE, URINE AUTO TRACE mg/dL (NEGATIVE); LEUKOCYTE ESTERASE, URINE AUTO TRACE (NEGATIVE); MUCUS, URINE SMALL (NEGATIVE); NITRITE, URINE AUTO NEGATIVE (NEGATIVE); PROTEIN, URINE AUTO NEGATIVE (NEGATIVE); RBC, URINE AUTO 7 /HPF (0-3); SPECIFIC GRAVITY URINE AUTO 1.025 (1.002-1.035); SQUAMOUS EPITHELIAL CELL UR AU 18 /HPF (0-6); TRANSITIONAL EPITHELIAL AUTO <1 /HPF; WBC, URINE AUTO 4 /HPF (0-3)
[2021-11-17 13:22] LABS: BLOOD UREA NITROGEN 12 MG/DL (7-18); CALCIUM LEVEL 9.4 MG/DL (8.8-10.2); CARBON DIOXIDE LEVEL 29 MEQ/L (21-32); CHLORIDE LEVEL 107 MEQ/L (98-107); CREATININE FOR GFR 0.89 MG/DL (0.55-1.30); GLOMERULAR FILTRATION RATE > 60.0 (>45); GLUCOSE, FASTING 91 MG/DL (70-100); POTASSIUM SERUM 4.5 MEQ/L (3.5-5.1); SODIUM LEVEL 143 MEQ/L (136-145)
[2021-11-17 13:35] LABS: ATYPICAL LYMPH 11 % (0-5); BASOPHILS 1 % (0-1); LYMPHOCYTES 38 % (16-44); MONOCYTES 3 % (0-5); MYELOCYTES 1 % (0-0); NEUTROPHILS 46 % (28-66)
[2021-11-17 13:36] LABS: PLATELET ESTIMATE INCREASED (NORMAL)
== END ==
LOC: M EKG 11:10
PROVIDERS: ATTEND Physician Assistant Medical
DX: I67.1 Cerebral aneurysm, nonruptured (principal)

== ENCOUNTER → 2022-02-26 | Outpatient (CLI) | payer OTHER | LOC: M WUC 11:13 | PROVIDERS: ATTEND Nurse Practitioner Family | DX: M16.0 Bilateral primary osteoarthritis of hip (principal) ==

== ENCOUNTER → 2022-03-29 | Outpatient (CLI) | payer OTHER | LOC: M WHC 07:06 | PROVIDERS: ATTEND Nurse Practitioner Family | DX: Z12.31 Encounter for screening mammogram for malignant neoplasm of breast (principal); Z13.820 Encounter for screening for osteoporosis; M85.89 Other specified disorders of bone density and structure, multiple sites ==

== ENCOUNTER → 2022-04-19 | Outpatient (CLI) | payer OTHER ==
[2022-04-19 08:05] LABS: BASO # 0.1 10^3/uL (0.0-0.2); BASO % 0.5 % (0.0-1.0); EOS # 0.1 10^3/uL (0.0-0.5); EOS % 1.2 % (0.0-3.0); HEMATOCRIT 46.2 % (36.0-47.0); LYMPH # 6.8 10^3/uL (1.5-5.0); LYMPH % 63.9 % (24.0-44.0); MEAN CORPUSCULAR HEMOGLOBIN 31.5 pg (27.0-33.0); MEAN CORPUSCULAR HGB CONC 32.5 g/dl (32.0-36.5); MEAN CORPUSCULAR VOLUME 97.1 fl (80.0-96.0); MONO # 0.7 10^3/uL (0.0-0.8); MONO % 6.5 % (2.0-8.0); NEUTROPHILS # 2.9 10^3/uL (1.5-8.5); NEUTROPHILS % 27.6 % (36.0-66.0); PLATELET COUNT, AUTOMATED 420 10^3/uL (150-450); RED BLOOD COUNT 4.76 10^6/uL (4.00-5.40); WHITE BLOOD COUNT 10.7 10^3/uL (4.0-10.0)
[2022-04-19 08:16] LABS: INR 0.93; PARTIAL THROMBOPLASTIN TIME 33.5 SECONDS (25.9-37.0); PROTHROMBIN TIME 12.9 SECONDS (12.7-14.5)
[2022-04-19 08:24] LABS: APPEARANCE, URINE MANUAL CLOUDY (CLEAR); COLOR, URINE MANUAL YELLOW (YELLOW)
[2022-04-19 08:26] LABS: SPECIFIC GRAVITY,URINE MANUAL 1.025 (1.002-1.035)
[2022-04-19 08:27] LABS: BILIRUBIN, URINE MANUAL NEGATIVE (NEGATIVE); BLOOD URINE MANUAL POSITIVE (NEGATIVE); GLUCOSE, URINE (UA) MANUAL NEGATIVE (NEGATIVE); KETONE, URINE MANUAL 1+ mg/dL (NEGATIVE); LEUKOCYTE ESTERASE, URINE MAN POSITIVE (NEGATIVE); NITRITE, URINE MANUAL NEGATIVE (NEGATIVE); PROTEIN, URINE MANUAL 2+ mg/dL (NEGATIVE); UROBILINOGEN, URINE MANUAL NORMAL (NORMAL)
[2022-04-19 08:45] LABS: SQUAMOUS EPITHELIAL CELL URINE LARGE AMOUNT /hpf (SMALL AMT)
[2022-04-19 08:46] LABS: BACTERIA, URINE LARGE AMOUNT; HYALINE CAST, URINE NONE SEEN /lpf (0-1)
[2022-04-19 08:47] LABS: CREATININE FOR GFR 1.02 MG/DL (0.55-1.30); GLOMERULAR FILTRATION RATE 58.7 (>45); POTASSIUM SERUM 4.4 MEQ/L (3.5-5.1)
== END ==
LOC: M LAB 06:46
PROVIDERS: ATTEND Physician Assistant Medical
DX: I67.1 Cerebral aneurysm, nonruptured (principal)

== ENCOUNTER → 2022-04-19 | Outpatient (CLI) | payer OTHER | LOC: M LABSMTC 09:31 | PROVIDERS: ATTEND Physician Assistant Medical | DX: Z20.822 Contact with and (suspected) exposure to COVID-19 (principal) ==

== ENCOUNTER 2022-06-17 23:35 | Emergency (ER) | payer OTHER ==
[~2022-06-17] VITALS: Ht 154.9 cm; Wt 57.0 kg
[2022-06-18] MEDS ORDERED: CLOP75TA99 PO (00:42)
[2022-06-18] MEDS ORDERED: GABA-282 PO (00:43)
[2022-06-18 03:22] LABS: HEMATOCRIT 40.4 % (36.0-47.0); HEMOGLOBIN 13.4 g/dl (12.0-15.5); MEAN CORPUSCULAR HGB CONC 33.2 g/dl (32.0-36.5); MEAN CORPUSCULAR VOLUME 96.4 fl (80.0-96.0); PLATELET COUNT, AUTOMATED 355 10^3/uL (150-450); RED BLOOD COUNT 4.19 10^6/uL (4.00-5.40); WHITE BLOOD COUNT 13.6 10^3/uL (4.0-10.0)
[2022-06-18 03:33] LABS: INR 0.93; PROTHROMBIN TIME 12.6 SECONDS (12.5-14.5)
[2022-06-18 03:34] LABS: PARTIAL THROMBOPLASTIN TIME 29.2 SECONDS (24.8-34.2)
[2022-06-18 03:47] LABS: ATYPICAL LYMPH 20 % (0-5); EOSINOPHILS 4 % (0-3); LYMPHOCYTES 37 % (16-44); MONOCYTES 8 % (0-5); NEUTROPHILS 31 % (28-66)
[2022-06-18 03:48] LABS: PLATELET ESTIMATE NORMAL (NORMAL)
[2022-06-18 04:07] LABS: BLOOD UREA NITROGEN 19 MG/DL (7-18); CARBON DIOXIDE LEVEL 28 MEQ/L (21-32); CHLORIDE LEVEL 105 MEQ/L (98-107); CREATININE FOR GFR 0.94 MG/DL (0.55-1.30); GLOMERULAR FILTRATION RATE > 60.0 (>45); GLUCOSE, FASTING 104 MG/DL (70-100); POTASSIUM SERUM 4.1 MEQ/L (3.5-5.1); SODIUM LEVEL 138 MEQ/L (136-145)
[2022-06-18 05:06] VITALS: BP 122/68
== END 2022-06-18 05:08 | disposition home or self-care (01) ==
LOC: M ED 23:35
DX: R04.2 Hemoptysis (principal); F32.A Depression, unspecified; Z88.0 Allergy status to penicillin; Z91.030 Bee allergy status; F17.210 Nicotine dependence, cigarettes, uncomplicated; M51.34 Other intervertebral disc degeneration, thoracic region; Z79.899 Other long term (current) drug therapy

== ENCOUNTER → 2023-06-17 | Outpatient (REF) | payer OTHER ==
[~2023-06-17] MED LIST changes: +CLOP75TA99 PO; +GABA-282 PO
[2023-06-17 19:18] LABS: ALBUMIN 3.8 G/DL (3.2-5.2); ALKALINE PHOSPHATASE 99 U/L (46-116); ALT/SGPT 21 U/L (7.0-40); AST/SGOT 18 U/L (<34); BILIRUBIN,TOTAL 0.3 MG/DL (0.3-1.2); BLOOD UREA NITROGEN 7 MG/DL (9-23); CALCIUM LEVEL 9.2 MG/DL (8.3-10.6); CARBON DIOXIDE LEVEL 29 MMOL/L (20-31); CHLORIDE LEVEL 103 MMOL/L (98-107); CHOLESTEROL LEVEL 144 MG/DL (<200); CHOLESTEROL RISK RATIO 2.33 (<5); CREATININE FOR GFR 0.83 MG/DL (0.55-1.30); GLOMERULAR FILTRATION RATE > 60.0 (>45); GLUCOSE, FASTING 78 MG/DL (74-106); HDL CHOLESTEROL 61.7 MG/DL (>40); LDL CHOLESTEROL 63.7 MG/DL (<100); NON-HDL-C 82.3 MG/DL; POTASSIUM SERUM 4.6 MMOL/L (3.5-5.1); SODIUM LEVEL 140 MMOL/L (136-145); THYROID STIMULATING HORMONE 0.891 uIU/ML (0.55-4.78); TOTAL PROTEIN 6.4 G/DL (5.7-8.2); TRIGLYCERIDES LEVEL 93 MG/DL (<150)
== END ==
LOC: M LAB REF 16:19
PROVIDERS: ATTEND Pediatrics
DX: E78.2 Mixed hyperlipidemia (principal)

== ENCOUNTER → 2023-10-11 | Outpatient (CLI) | payer OTHER ==
[2023-10-11 12:48] LABS: BLOOD UREA NITROGEN 14 MG/DL (9-23); CREATININE FOR GFR 0.82 MG/DL (0.55-1.30); GLOMERULAR FILTRATION RATE > 60.0 (>45)
== END ==
LOC: M LAB 11:36
PROVIDERS: ATTEND Nurse Practitioner Family
DX: Z98.890 Other specified postprocedural states (principal)

== ENCOUNTER → 2024-01-23 | Outpatient (CLI) | payer OTHER | LOC: M SOG 07:55 | PROVIDERS: ATTEND Physician Assistant | DX: M79.641 Pain in right hand (principal); M79.642 Pain in left hand; Z53.8 Procedure and treatment not carried out for other reasons ==

== ENCOUNTER → 2024-03-02 | Outpatient (CLI) | payer OTHER | LOC: M WHC 12:55 | PROVIDERS: ATTEND Pediatrics | DX: Z12.31 Encounter for screening mammogram for malignant neoplasm of breast (principal) ==

== ENCOUNTER 2024-03-28 09:23 | Emergency (ER) | payer OTHER ==
[~2024-03-28] VITALS: Ht 154.9 cm; Wt 110.0 kg
[2024-03-28 11:31] VITALS: BP 126/72; TEMP 97.9; O2SAT 95
[2024-03-28] MEDS ORDERED: MEDR4PAK PO (12:15)
== END 2024-03-28 12:34 | disposition home or self-care (01) ==
LOC: M ED 09:23
DX: R10.813 Right lower quadrant abdominal tenderness (principal); E78.5 Hyperlipidemia, unspecified; F17.200 Nicotine dependence, unspecified, uncomplicated; Z91.030 Bee allergy status; Z88.0 Allergy status to penicillin; Z79.899 Other long term (current) drug therapy

== ENCOUNTER → 2024-06-08 | Outpatient (CLI) | payer OTHER ==
[~2024-06-08] MED LIST changes: +GABA-1172 PO; -GABA-282 PO; +MEDR4PAK PO
== END ==
LOC: M RAD 09:15
PROVIDERS: ATTEND Family Medicine
DX: M25.551 Pain in right hip (principal); M16.11 Unilateral primary osteoarthritis, right hip

== ENCOUNTER → 2024-06-10 | Outpatient (CLI) | payer OTHER ==
[2024-06-10 15:40] LABS: BLOOD UREA NITROGEN 10 MG/DL (9-23); CALCIUM LEVEL 9.8 MG/DL (8.3-10.6); CARBON DIOXIDE LEVEL 28 MMOL/L (20-31); CHLORIDE LEVEL 105 MMOL/L (98-107); CHOLESTEROL LEVEL 152 MG/DL (<200); CHOLESTEROL RISK RATIO 2.66 (<5); GLOMERULAR FILTRATION RATE > 60.0 (>45); GLUCOSE, FASTING 88 MG/DL (74-106); HDL CHOLESTEROL 57.1 MG/DL (>40); LDL CHOLESTEROL 71.7 MG/DL (<100); NON-HDL-C 94.9 MG/DL; POTASSIUM SERUM 4.2 MMOL/L (3.5-5.1); SODIUM LEVEL 139 MMOL/L (136-145); TRIGLYCERIDES LEVEL 116 MG/DL (<150)
[2024-06-10 16:33] LABS: HEMOGLOBIN A1c 5.7 % (4.0-6.0)
== END ==
LOC: M PLALAB 11:46
PROVIDERS: ATTEND Student in an Organized Health Care Education/Training Program
DX: M16.11 Unilateral primary osteoarthritis, right hip (principal)

== ENCOUNTER 2024-06-22 10:32 | Observation (INO) | payer OTHER ==
[~2024-06-22] VITALS: Ht 157.5 cm; Wt 59.2 kg
[~2024-06-22 10:32] MED LIST changes: +ATOR40TA75 PO; +BUPR150T12 PO; +ECOT81TA5 PO; +GABA-284 PO; +TRAM50TA2; +VITA1CAP25 PO
[2024-06-22] MEDS: ISOVUE-300 61% 100ML VIAL As Ordered ONE (11:17)
[2024-06-22] MEDS: methylPREDNISolone SUSP 40MG/ML 1ML VIAL (DEPO MEDROL) As Ordered ONE (12:17)
[2024-06-22] MEDS: SODIUM BICARBONATE 8.4% INJ 50MEQ 50ML VIAL As Ordered ONE (12:17)
[2024-06-22] MEDS ORDERED: ACETAMINOPHEN 325 MG TAB PO PRN (18:10)
[2024-06-22 18:30] VITALS: BP 138/86; TEMP 97.7; O2SAT 98
[2024-06-22 22:29] VITALS: BP 136/86; TEMP 97.5; O2SAT 96
[2024-06-23 02:29] VITALS: BP 133/86; TEMP 97.7; O2SAT 97
[2024-06-23 06:30] VITALS: BP 134/84; TEMP 97.5; O2SAT 98
[2024-06-23 08:00] VITALS: BP 130/83; TEMP 97.3; O2SAT 97
[2024-06-23 12:00] VITALS: BP 129/83; TEMP 97.9; O2SAT 94
== END 2024-06-23 17:30 | disposition home or self-care (01) ==
LOC: M SDC 10:32 → M MS5PR 18:29
PROVIDERS: ADMIT Orthopaedic Surgery Hand Surgery; ATTEND Orthopaedic Surgery Hand Surgery
DX: M16.11 Unilateral primary osteoarthritis, right hip (principal)
CPT/HCPCS: 20610; 76000; 97116; 97161; 97165; J0665; J1010; Q9967

== ENCOUNTER → 2024-10-16 | Outpatient (CLI) | payer OTHER ==
[~2024-10-16] MED LIST changes: +ISOVUE-300 61% 100ML VIAL As Ordered ONE; +LIDOCAINE 1% MDV 20ML VIAL As Ordered ONE; +methylPREDNISolone SUSP 40MG/ML 1ML VIAL (DEPO MEDROL) As Ordered ONE
== END ==
LOC: M RAD 10:12
PROVIDERS: ATTEND Physician Assistant
DX: M16.11 Unilateral primary osteoarthritis, right hip (principal)
CPT/HCPCS: 20610; 77002; J0665; J1010; Q9967

== ENCOUNTER → 2025-04-16 | Outpatient (REF) | payer OTHER ==
[~2025-04-16] MED LIST changes: -ISOVUE-300 61% 100ML VIAL As Ordered ONE; -LIDOCAINE 1% MDV 20ML VIAL As Ordered ONE; -methylPREDNISolone SUSP 40MG/ML 1ML VIAL (DEPO MEDROL) As Ordered ONE
== END ==
LOC: M LAB REF 16:41
PROVIDERS: ATTEND Neuromusculoskeletal Medicine, Sports Medicine
DX: M16.11 Unilateral primary osteoarthritis, right hip (principal)

== ENCOUNTER → 2025-05-18 | Outpatient (CLI) | payer OTHER | LOC: M RAD 11:04 | PROVIDERS: ATTEND Neuromusculoskeletal Medicine, Sports Medicine | DX: M16.11 Unilateral primary osteoarthritis, right hip (principal) ==

== ENCOUNTER → 2025-05-27 | Outpatient (CLI) | payer OTHER ==
[~2025-05-27] MED LIST changes: +EPIN0.3I11 IM; +GABA-1635 PO; +HYDR2TAB2 PO; +SUZE50TA PO; +SYMB80INH INH; +THERTAB52 PO; +VENL-115 PO; +[UNRECOGNIZED DRUG - CODE] PO
[2025-05-27 15:44] LABS: PLATELET COUNT, AUTOMATED 394 10^3/uL (150-450)
[2025-05-27 16:12] LABS: ALT/SGPT 18.0 U/L (7.0-40); AST/SGOT 18.0 U/L (<34); CALCIUM LEVEL 9.9 MG/DL (8.3-10.6); CARBON DIOXIDE LEVEL 26.0 MMOL/L (20-31); CHLORIDE LEVEL 105.0 MMOL/L (98-107); CREATININE FOR GFR 0.9 MG/DL (0.55-1.30); GLOMERULAR FILTRATION RATE 71.4 (>45); POTASSIUM SERUM 4.4 MMOL/L (3.5-5.1); SODIUM LEVEL 144.0 MMOL/L (136-145)
[2025-05-27 20:17] LABS: ATYPICAL LYMPH 25 % (0-5); EOSINOPHILS 3 % (0-3); LYMPHOCYTES 43 % (16-44); MONOCYTES 4 % (0-5); NEUTROPHILS 23 % (28-66)
[2025-05-27 20:18] LABS: PLATELET ESTIMATE NORMAL (NORMAL)
== END ==
LOC: M PLALAB 12:55
PROVIDERS: ATTEND Neuromusculoskeletal Medicine, Sports Medicine
DX: M16.11 Unilateral primary osteoarthritis, right hip (principal)

== ENCOUNTER → 2025-05-27 | Outpatient (CLI) | payer OTHER ==
[2025-05-27 15:41] LABS: APPEARANCE, URINE HAZY (CLEAR); BACTERIA, URINE AUTO NEGATIVE (NEGATIVE); BILIRUBIN, URINE AUTO 1+ (NEGATIVE); BLOOD, URINE BLOOD NEGATIVE (NEGATIVE); GLUCOSE, URINE (UA) AUTO NEGATIVE (NEGATIVE); KETONE, URINE AUTO TRACE mg/dL (NEGATIVE); LEUKOCYTE ESTERASE, URINE AUTO 2+ (NEGATIVE); MUCUS, URINE LARGE (NEGATIVE); NITRITE, URINE AUTO NEGATIVE (NEGATIVE); PROTEIN, URINE AUTO 1+ mg/dL (NEGATIVE); RBC, URINE AUTO 5 /HPF (0-3); SPECIFIC GRAVITY URINE AUTO 1.029 (1.002-1.035); SQUAMOUS EPITHELIAL CELL UR AU 3 /HPF (0-6); UROBILINOGEN, URINE AUTO 2.0 mg/dL (0.0-2.0); WBC, URINE AUTO 13 /HPF (0-3)
[2025-05-27 15:45] LABS: BASO # 0.1 10^3/uL (0.0-0.2); BASO % 0.4 % (0.0-1.0); EOS # 0.3 10^3/uL (0.0-0.5); EOS % 2.1 % (0.0-3.0); LYMPH # 8.3 10^3/uL (1.5-5.0); LYMPH % 59.9 % (24.0-44.0); MONO # 0.5 10^3/uL (0.0-0.8); MONO % 3.8 % (2.0-8.0); NEUTROPHILS # 4.6 10^3/uL (1.5-8.5); NEUTROPHILS % 33.5 % (36.0-66.0); PLATELET COUNT, AUTOMATED 402 10^3/uL (150-450)
[2025-05-27 15:53] LABS: INR 0.87
[2025-05-27 15:59] LABS: ESTIMATED AVERAGE GLUCOSE 114.0 MG/DL (60-110)
[2025-05-27 16:11] LABS: ALT/SGPT 18.0 U/L (7.0-40); AST/SGOT 19.0 U/L (<34); CALCIUM LEVEL 10.1 MG/DL (8.3-10.6); CARBON DIOXIDE LEVEL 27.0 MMOL/L (20-31); CHLORIDE LEVEL 104.0 MMOL/L (98-107); CHOLESTEROL LEVEL 162.0 MG/DL (<200); CHOLESTEROL RISK RATIO 2.9 (<5); CREATININE FOR GFR 0.92 MG/DL (0.55-1.30); GLOMERULAR FILTRATION RATE 69.5 (>45); LDL CHOLESTEROL 83.8 MG/DL (<100); NON-HDL-C 106.2 MG/DL; POTASSIUM SERUM 3.9 MMOL/L (3.5-5.1); SODIUM LEVEL 142.0 MMOL/L (136-145); TRIGLYCERIDES LEVEL 112.0 MG/DL (<150)
== END ==
LOC: M PLALAB 12:50
PROVIDERS: ATTEND Family Medicine
DX: E78.2 Mixed hyperlipidemia (principal); M16.11 Unilateral primary osteoarthritis, right hip; F17.210 Nicotine dependence, cigarettes, uncomplicated

== ENCOUNTER 2025-06-02 06:11 | Observation (INO) | payer OTHER ==
[~2025-06-02] VITALS: Ht 154.9 cm; Wt 55.0 kg
[2025-06-02] VITALS (8 sets, daily range): BP systolic 98–108; BP diastolic 56–78; TEMP 96.5–98.2; O2SAT 96–99
[~2025-06-02 06:11] MED LIST changes: -EPIN0.3I11 IM; -GABA-1635 PO; -HYDR2TAB2 PO; -SUZE50TA PO; -THERTAB52 PO; -VENL-115 PO; -[UNRECOGNIZED DRUG - CODE] PO
[2025-06-02] MEDS ORDERED: THERTAB52 PO (06:41)
[2025-06-02] MEDS ORDERED: [UNRECOGNIZED DRUG - CODE] PO (06:41)
[2025-06-02] MEDS ORDERED: LR 1,000 ML IV SCH (06:45)
[2025-06-02] MEDS: ALBUTEROL SULFATE 2.5 MG/0.5 ML INH CONCENTRATE NEB SOLN NEB ONE (06:55)
[2025-06-02] MEDS: ceFAZolin SOD 2 GM IV ONCE IV ONE (08:15)
[2025-06-02] MEDS: TRANEXAMIC ACID 100 MG/ML 10ML VIAL As Ordered ONE (08:20)
[2025-06-02] MEDS ORDERED: ONDANSETRON 4MG/2ML VIAL As Ordered ONE (08:21)
[2025-06-02] MEDS ORDERED: LIDOCAINE 2% 100 MG/5 ML SDV (FOR ANES.) As Ordered ONE (08:21)
[2025-06-02] MEDS ORDERED: MIDAZOLAM INJ 2 MG/2 ML VIAL As Ordered ONE (08:21)
[2025-06-02] MEDS ORDERED: ROCURONIUM BROMIDE 50MG/5ML VIAL As Ordered ONE (08:21)
[2025-06-02] MEDS ORDERED: dexAMETHasone 4 MG/ML 1 ML VIAL As Ordered ONE (08:21)
[2025-06-02] MEDS ORDERED: PHENYLephrine 500MCG 5ML (100MCG/ML) SYRINGE As Ordered ONE (08:21)
[2025-06-02] MEDS ORDERED: ACETAMINOPHEN 1000MG/100ML IV BAG As Ordered ONE (08:22)
[2025-06-02] MEDS ORDERED: HYDROmorphone HCL 2 MG/ML 1 ML VIAL As Ordered ONE (08:36)
[2025-06-02] MEDS ORDERED: SUGAMMADEX SODIUM 200 MG/2 ML VIAL As Ordered ONE (08:48)
[2025-06-02] MEDS: KETOROLAC 30 MG/ML 1 ML VIAL As Ordered ONE (10:18)
[2025-06-02] MEDS: VANCOMYCIN 1000MG/20ML VIAL As Ordered ONE (10:20)
[2025-06-02] MEDS ORDERED: HYDROMORPHONE HCL 0.5 MG/0.5 ML SYRINGE IV PRN (10:45)
[2025-06-02] MEDS ORDERED: ONDANSETRON 4MG/2ML VIAL IV PRN ×2 (10:45→11:00)
[2025-06-02] MEDS: LR 1,000 ML IV SCH ×2 (10:45→13:30)
[2025-06-02] MEDS ORDERED: HYDROmorphone 2 MG TAB PO PRN (11:00)
[2025-06-02] MEDS ORDERED: MORPHINE 4 MG/ML 1 ML VIAL IV PRN (11:00)
[2025-06-02] MEDS: MEPERIDINE 25 MG/ML 1 ML VIAL IV PRN (11:29)
[2025-06-02 14:52] LABS: PLATELET COUNT, AUTOMATED 314 10^3/uL (150-450)
[2025-06-02 15:22] LABS: CALCIUM LEVEL 8.3 MG/DL (8.3-10.6); CARBON DIOXIDE LEVEL 24.0 MMOL/L (20-31); CHLORIDE LEVEL 109.0 MMOL/L (98-107); CREATININE FOR GFR 0.75 MG/DL (0.55-1.30); GLOMERULAR FILTRATION RATE 88.9 (>45); POTASSIUM SERUM 4.0 MMOL/L (3.5-5.1); SODIUM LEVEL 143.0 MMOL/L (136-145)
[2025-06-02] MEDS: ceFAZolin SODIUM 2 GM in DEXTROSE 5% (D5W) ADV/MINI-BAG 50 ML IV SCH (17:32)
[2025-06-02] MEDS: ACETAMINOPHEN *IV* 1,000 MG in IV 1 EA IV SCH (17:32)
[2025-06-02] MEDS: KETOROLAC 30 MG/ML 1 ML VIAL IV SCH (17:33)
[2025-06-02] MEDS ORDERED: GABA-1635 PO (17:34)
[2025-06-02] MEDS ORDERED: HOME MED LIST COMPLETE! XX SCH (17:35)
[2025-06-02] MEDS ORDERED: VENL-115 PO (17:53)
[2025-06-02] MEDS: GABAPENTIN 400 MG CAP PO SCH (20:53)
[2025-06-02] MEDS: VENLAFAXINE **XR** 75MG CAPSULE PO SCH (20:53)
[2025-06-02] MEDS: busPIRone 5 MG TAB PO SCH (20:53)
[2025-06-02] MEDS: buPROPion **XL** 150 MG TABLET PO SCH (20:53)
[2025-06-02] MEDS: ATORVASTATIN 20 MG TAB PO SCH (20:53)
[2025-06-03 05:55] VITALS: BP 148/90; TEMP 98; O2SAT 94
[2025-06-03 06:37] LABS: PLATELET COUNT, AUTOMATED 329 10^3/uL (150-450)
[2025-06-03 06:58] LABS: INR 0.88
[2025-06-03 07:08] LABS: ALT/SGPT 16 U/L (7.0-40); AST/SGOT 40 U/L (<34); CALCIUM LEVEL 8.7 MG/DL (8.3-10.6); CARBON DIOXIDE LEVEL 27 MMOL/L (20-31); CHLORIDE LEVEL 109 MMOL/L (98-107); CREATININE FOR GFR 0.78 MG/DL (0.55-1.30); GLOMERULAR FILTRATION RATE 84.8 (>45); POTASSIUM SERUM 4.1 MMOL/L (3.5-5.1); SODIUM LEVEL 146 MMOL/L (136-145)
[2025-06-03] MEDS: FERROUS SULFATE 325 MG TAB PO SCH (08:59)
[2025-06-03] MEDS: APIXABAN 2.5 MG TAB PO SCH (08:59)
[2025-06-03] MEDS: SENNA 8.6 MG TAB PO SCH (08:59)
[2025-06-03] MEDS: HYDROmorphone 2 MG TAB PO PRN (08:59)
[2025-06-03] MEDS: ASCORBIC ACID 500 MG TAB PO SCH (08:59)
[2025-06-03] MEDS ORDERED: CLOP75TA99 PO (09:57)
== END 2025-06-03 11:35 | disposition home health service (06) ==
LOC: M SDC 06:11 → M MS5PR 12:20
PROVIDERS: ADMIT Internal Medicine; ATTEND Neuromusculoskeletal Medicine, Sports Medicine
DX: M16.11 Unilateral primary osteoarthritis, right hip (principal); M25.551 Pain in right hip; E78.5 Hyperlipidemia, unspecified; I67.1 Cerebral aneurysm, nonruptured; Z86.73 Personal history of transient ischemic attack (TIA), and cerebral infarction without residual deficits; F41.9 Anxiety disorder, unspecified; F32.A Depression, unspecified; Z88.0 Allergy status to penicillin; Z91.030 Bee allergy status; Z79.899 Other long term (current) drug therapy; Z79.82 Long term (current) use of aspirin; Z79.51 Long term (current) use of inhaled steroids; Z79.02 Long term (current) use of antithrombotics/antiplatelets; Z87.891 Personal history of nicotine dependence
CPT/HCPCS: 27130; 36415; 72170; 80048; 80076; 85027; 85610; 85730; 88300; 96374; 96375; 96376; 97116; 97161; 97530; C1713; C1776; J0131; J0665; J0666; J0688; J1100; J1171; J1885; J2175; J2250; J2371; J2405; J3010; J3373; S2900

== ENCOUNTER 2025-06-06 08:56 | Observation (INO) | payer OTHER ==
[~2025-06-06] VITALS: Ht 154.9 cm; Wt 60.8 kg
[~2025-06-06 08:56] MED LIST changes: +GABA-1635 PO; +THERTAB52 PO; +VENL-115 PO; +[UNRECOGNIZED DRUG - CODE] PO
[2025-06-06 09:44] LABS: PLATELET COUNT, AUTOMATED 469 10^3/uL (150-450)
[2025-06-06] MEDS ORDERED: ISOVUE-370 76% 100 ML VIAL As Ordered ONE (09:48)
[2025-06-06 10:06] LABS: INR 0.89
[2025-06-06 10:08] LABS: CK-MB VALUE MASS < 1.0 NG/ML (<3.6)
[2025-06-06 10:11] LABS: ALT/SGPT 33 U/L (7.0-40); AST/SGOT 51 U/L (<34); CALCIUM LEVEL 8.9 MG/DL (8.3-10.6); CARBON DIOXIDE LEVEL 27 MMOL/L (20-31); CHLORIDE LEVEL 106 MMOL/L (98-107); CPK CREATINE PHOSPHOKINASE 655 U/L (34-145); CREATININE FOR GFR 0.60 MG/DL (0.55-1.30); GLOMERULAR FILTRATION RATE > 90.0 (>45); POTASSIUM SERUM 3.8 MMOL/L (3.5-5.1); SODIUM LEVEL 144 MMOL/L (136-145)
[2025-06-06 10:12] LABS: ATYPICAL LYMPH 3 % (0-5); EOSINOPHILS 3 % (0-3); LYMPHOCYTES 39 % (16-44); MONOCYTES 5 % (0-5); NEUTROPHILS 49 % (28-66)
[2025-06-06 10:13] LABS: FREE T4 1.13 NG/DL (0.89-1.76); PLATELET ESTIMATE INCREASED (NORMAL)
[2025-06-06] MEDS: MORPHINE 2 MG/ML 1 ML VIAL IV ONE (10:13)
[2025-06-06 10:14] LABS: PLATELET CLUMPS SMALL AMT
[2025-06-06 11:01] LABS: CK-MB VALUE MASS < 1.0 NG/ML (<3.6)
[2025-06-06 11:05] LABS: CPK CREATINE PHOSPHOKINASE 640 U/L (34-145)
[2025-06-06] MEDS: MORPHINE 4 MG/ML 1 ML VIAL IV PRN (11:15)
[2025-06-06 12:36] LABS: KETONE, URINE AUTO RFX NEGATIVE (NEGATIVE); LEUKOCYTE ESTERASE UR AUTO RFX NEGATIVE (NEGATIVE); MUCUS, URINE RFX SMALL (NEGATIVE); NITRITE, URINE AUTO RFX NEGATIVE (NEGATIVE); RBC, URINE AUTO RFX 6 /HPF (0-3); SQUAM EPITHELIAL CELL UR AURFX 2 /HPF (0-6); WBC, URINE AUTO RFX 0 /HPF (0-3)
[2025-06-06] MEDS ORDERED: HYDR2TAB2 PO (15:16)
[2025-06-06] MEDS ORDERED: SUZE50TA PO (15:18)
[2025-06-06] MEDS ORDERED: EPIN0.3I11 IM (15:20)
[2025-06-06] MEDS ORDERED: HOME MED LIST COMPLETE! XX SCH (15:25)
[2025-06-06] MEDS ORDERED: MORPHINE 4 MG/ML 1 ML VIAL IV PRN (17:00)
[2025-06-06 17:28] VITALS: BP 122/86; TEMP 97.7; O2SAT 99
[2025-06-06] MEDS: VANCOMYCIN HCL 1,000 MG, VIAL MATE ADAPTER 1 EACH in NS 250 ML IV ONE (18:25)
[2025-06-06] MEDS: NS (Normal Saline) 0.9% 1,000 ML IV SCH (18:25)
[2025-06-06] MEDS: NS (Normal Saline) 0.9% 1,000 ML IV ONE (18:35)
[2025-06-06] MEDS: SYMBICORT 80/4.5MCG INHALER 6GM INH SCH (18:59)
[2025-06-06] MEDS: HYDROmorphone 2 MG TAB PO PRN (20:01)
[2025-06-06 20:37] VITALS: BP 119/82; TEMP 97.7; O2SAT 97
[2025-06-06] MEDS: buPROPion **XL** 150 MG TABLET PO SCH (20:54)
[2025-06-06] MEDS: GABAPENTIN 400 MG CAP PO SCH (20:54)
[2025-06-06] MEDS: cefTRIAXone SOD 1 GM in DEXTROSE 5% (D5W) ADV/MINI-BAG 50 ML IV SCH (20:54)
[2025-06-06] MEDS: busPIRone 5 MG TAB PO SCH (20:54)
[2025-06-06] MEDS: ACETAMINOPHEN 325 MG TAB PO SCH (20:55)
[2025-06-06] MEDS: ASPIRIN 81 MG ENTERIC TABLET PO SCH (20:56)
[2025-06-06] MEDS: ATORVASTATIN 20 MG TAB PO SCH (20:56)
[2025-06-07] MEDS: VANCOMYCIN HCL 1,000 MG, VIAL MATE ADAPTER 1 EACH in NS 250 ML IV SCH (00:07)
[2025-06-07 04:11] VITALS: BP 120/80; TEMP 97.7; O2SAT 98
[2025-06-07] MEDS: HYDROmorphone 2 MG TAB PO PRN (06:18)
[2025-06-07 06:25] LABS: BASO # 0.1 10^3/uL (0.0-0.2); BASO % 0.4 % (0.0-1.0); EOS # 0.4 10^3/uL (0.0-0.5); EOS % 2.7 % (0.0-3.0); LYMPH # 6.6 10^3/uL (1.5-5.0); LYMPH % 49.8 % (24.0-44.0); MONO # 0.8 10^3/uL (0.0-0.8); MONO % 5.7 % (2.0-8.0); NEUTROPHILS # 5.4 10^3/uL (1.5-8.5); NEUTROPHILS % 40.8 % (36.0-66.0); PLATELET COUNT, AUTOMATED 450 10^3/uL (150-450)
[2025-06-07 06:54] LABS: CALCIUM LEVEL 8.4 MG/DL (8.3-10.6); CARBON DIOXIDE LEVEL 26 MMOL/L (20-31); CHLORIDE LEVEL 108 MMOL/L (98-107); CREATININE FOR GFR 0.60 MG/DL (0.55-1.30); GLOMERULAR FILTRATION RATE > 90.0 (>45); POTASSIUM SERUM 3.8 MMOL/L (3.5-5.1); SODIUM LEVEL 144 MMOL/L (136-145)
[2025-06-07] MEDS: CLOPIDOGREL 75 MG TAB PO SCH (08:41)
[2025-06-07] MEDS: VENLAFAXINE **XR** 75MG CAPSULE PO SCH (08:42)
[2025-06-07 12:00] VITALS: BP 118/80; TEMP 96.8; O2SAT 96
[2025-06-07 19:58] VITALS: BP 118/78; TEMP 97.7; O2SAT 97
[2025-06-07 20:15] VITALS: TEMP 98.4
[2025-06-08 03:41] VITALS: BP 131/77; TEMP 97.4; O2SAT 96
[2025-06-08 07:00] LABS: BASO # 0.1 10^3/uL (0.0-0.2); BASO % 0.6 % (0.0-1.0); EOS # 0.3 10^3/uL (0.0-0.5); EOS % 2.5 % (0.0-3.0); LYMPH # 5.0 10^3/uL (1.5-5.0); LYMPH % 48.2 % (24.0-44.0); MONO # 0.6 10^3/uL (0.0-0.8); MONO % 5.6 % (2.0-8.0); NEUTROPHILS # 4.4 10^3/uL (1.5-8.5); NEUTROPHILS % 42.4 % (36.0-66.0); PLATELET COUNT, AUTOMATED 480 10^3/uL (150-450)
[2025-06-08 07:19] LABS: CALCIUM LEVEL 8.6 MG/DL (8.3-10.6); CARBON DIOXIDE LEVEL 25 MMOL/L (20-31); CHLORIDE LEVEL 110 MMOL/L (98-107); CREATININE FOR GFR 0.58 MG/DL (0.55-1.30); GLOMERULAR FILTRATION RATE > 90.0 (>45); POTASSIUM SERUM 3.9 MMOL/L (3.5-5.1); SODIUM LEVEL 147 MMOL/L (136-145)
[2025-06-08] MEDS ORDERED: ALBUTEROL 90 MCG/ACT 8 GM HFA INHALER INH PRN (08:35)
[2025-06-08] MEDS ORDERED: ACET-897 PO (12:00)
[2025-06-08] MEDS ORDERED: OMEP-173 PO (12:00)
[2025-06-08] MEDS ORDERED: ECOT81TA5 PO (12:00)
[2025-06-08 12:23] VITALS: BP 109/72; TEMP 98.3; O2SAT 98
[2025-06-08] MEDS ORDERED: VENLAFAXINE **XR** 75MG CAPSULE PO SCH (21:00)
== END 2025-06-08 13:34 | disposition home or self-care (01) ==
LOC: M ED 08:56 → EDBEDREQSVC 14:28 → M ED INP 16:47 → M MSPAV 17:40
PROVIDERS: ADMIT Student in an Organized Health Care Education/Training Program; ATTEND Internal Medicine Nephrology
DX: R07.1 Chest pain on breathing (principal); R50.9 Fever, unspecified; R65.10 Systemic inflammatory response syndrome (SIRS) of non-infectious origin without acute organ dysfunction; R00.0 Tachycardia, unspecified; R05.3 Chronic cough; R06.02 Shortness of breath; R74.8 Abnormal levels of other serum enzymes; Z87.09 Personal history of other diseases of the respiratory system; J44.9 Chronic obstructive pulmonary disease, unspecified; E78.5 Hyperlipidemia, unspecified; M17.11 Unilateral primary osteoarthritis, right knee; Z96.641 Presence of right artificial hip joint; Z98.890 Other specified postprocedural states; F17.200 Nicotine dependence, unspecified, uncomplicated; Z86.79 Personal history of other diseases of the circulatory system; Z88.0 Allergy status to penicillin; Z91.030 Bee allergy status; Z79.899 Other long term (current) drug therapy; Z79.82 Long term (current) use of aspirin; Z79.51 Long term (current) use of inhaled steroids; Z79.02 Long term (current) use of antithrombotics/antiplatelets
CPT/HCPCS: 36415; 71045; 71275; 80047; 80048; 80076; 81001; 82550; 82553; 83605; 83690; 84145; 84439; 84443; 84484; 85025; 85610; 85730; 87040; 87486; 87581; 87633; 87641; 87798; 93005; 93041; 93306; 94640; 94760; 96365; 96366; 96368; 96375; 96376; 97116; 97161; 97530; 99285; J0696; J3373; Q9967

== ENCOUNTER → 2025-06-18 | Outpatient (CLI) | payer OTHER ==
[~2025-06-18] MED LIST changes: +ACET-897 PO; +EPIN0.3I11 IM; +HYDR2TAB2 PO; +OMEP-173 PO; +SUZE50TA PO
== END ==
LOC: M SOG 07:39
PROVIDERS: ATTEND Physician Assistant
DX: M16.11 Unilateral primary osteoarthritis, right hip (principal)